=== PATIENT | male | born 1960 | race Caucasian/White ===

== ENCOUNTER 2020-09-16 09:36 | Outpatient (REF) | payer OTHER, SELFPAY ==
[2020-09-16 10:18] LABS: Estimated Average Glucose 140 mg/dL; Hemoglobin A1c % 6.5 %
[2020-09-16 10:23] LABS: Alanine Aminotransferase 27 U/L (0-40); Albumin Level 4.3 g/dL (3.5-5.0); Alkaline Phosphatase 68 U/L (39-117); Anion Gap 12 (12-20); Aspartate Amino Transferase 18 U/L (5-37); Bilirubin Total 0.3 mg/dL (0.0-1.0); Blood Urea Nitrogen 16 mg/dL (9-16); Calcium 8.6 mg/dL (8.4-10.2); Carbon Dioxide 26 mmol/L (22-29); Chloride 105 mmol/L (96-108); Cholesterol 180 mg/dL; Estimated Glomerular Filt Rate > 60; Glucose Fasting 160 mg/dL (60-99); HDL Cholesterol 43 mg/dL; LDL Cholesterol Calculated 121 mg/dl; Potassium 4.7 mmol/l (3.3-5.1); Sodium 138 mmol/L (135-145); Triglycerides 84 mg/dL
== END 2020-09-16 09:37 | disposition home or self-care (01) ==
LOC: HO.LAB 09:36
PROVIDERS: PCP Internal Medicine; Visit Provider Internal Medicine
DX: E11.9 Type 2 diabetes mellitus without complications (principal)
CPT/HCPCS: 80053; 80061; 83036

== ENCOUNTER → 2020-10-18 08:47 | Outpatient (BNVA) | payer OTHER, SELFPAY | PROVIDERS: PCP Internal Medicine; Visit Provider Internal Medicine | DX: I25.10 Atherosclerotic heart disease of native coronary artery without angina pectoris (principal); Q24.5 Malformation of coronary vessels; E11.8 Type 2 diabetes mellitus with unspecified complications; I10 Essential (primary) hypertension; E78.5 Hyperlipidemia, unspecified | CPT/HCPCS: 93005; 99212 ==

== ENCOUNTER → 2021-04-04 08:54 | Outpatient (BNVA) | payer OTHER, SELFPAY | PROVIDERS: PCP Internal Medicine; Referring Provider Internal Medicine; Visit Provider Internal Medicine | DX: I25.10 Atherosclerotic heart disease of native coronary artery without angina pectoris (principal); Q24.5 Malformation of coronary vessels; E11.8 Type 2 diabetes mellitus with unspecified complications; I10 Essential (primary) hypertension; E78.5 Hyperlipidemia, unspecified | CPT/HCPCS: 99212 ==

== ENCOUNTER 2021-05-21 07:25 | Outpatient (REF) | payer OTHER, SELFPAY ==
[2021-05-21 07:47] LABS: MANUAL DIFF FLAG NO
[2021-05-21 07:52] LABS: Basophils Percent Auto 0.7 % (0-2); Eosinophils Absolute Auto 0.2 X10*3/uL (0.0-0.4); Eosinophils Percent Auto 3.1 % (0-4); Hematocrit 43.9 % (42-52); Imm Gran Abs Auto 0.02 X10*3/uL (0.00-0.03); Imm Gran Pct Auto 0.4 % (0.0-0.4); Lymphocytes Absolute Auto 1.6 X10*3/uL (1.2-4.9); Lymphocytes Percent Auto 28.5 % (20-40); Mean Corpuscular HGB Conc 31.9 g/dl (31.0-36.0); Mean Corpuscular Hemoglobin 27.7 pg (27.0-33.0); Mean Corpuscular Volume 86.8 fL (80-98); Mean Platelet Volume 11.1 fL (9.4-12.4); Monocytes Absolute Auto 0.6 X10*3/uL (0.1-1.2); Monocytes Percent Auto 10.5 % (2-11); Neutrophils Absolute Auto 3.1 X10*3/uL (2.0-8.3); Neutrophils Percent Auto 56.8 % (45-73); Platelet Count 172 X10*3/uL (160-400); Red Blood Count 5.06 X10*6/uL (4.60-5.80); Red Cell Distribution Width 14.1 % (11.0-16.0); White Blood Count 5.5 X10*3/uL (4.8-10.8)
[2021-05-21 08:09] LABS: Alanine Aminotransferase 28 U/L (0-40); Albumin Level 4.4 g/dL (3.5-5.0); Alkaline Phosphatase 60 U/L (39-117); Anion Gap 12 (12-20); Aspartate Amino Transferase 20 U/L (5-37); Bilirubin Total 0.6 mg/dL (0.0-1.0); Blood Urea Nitrogen 15 mg/dL (9-16); Calcium 9.2 mg/dL (8.4-10.2); Carbon Dioxide 23 mmol/L (22-29); Chloride 107 mmol/L (96-108); Cholesterol 203 mg/dL; Estimated Glomerular Filt Rate > 60; Glucose Fasting 144 mg/dL (60-99); HDL Cholesterol 43 mg/dL; LDL Cholesterol Calculated 135 mg/dl; Potassium 4.2 mmol/L (3.3-5.1); Sodium 138 mmol/L (135-145); Total Protein 7.2 g/dL (6.5-8.0); Triglycerides 129 mg/dL
== END 2021-05-21 07:26 | disposition home or self-care (01) ==
LOC: HO.LAB 07:25
PROVIDERS: PCP Internal Medicine; Visit Provider Internal Medicine
DX: Z00.00 Encounter for general adult medical examination without abnormal findings (principal); E11.9 Type 2 diabetes mellitus without complications
CPT/HCPCS: 36415; 80053; 80061; 85025

== ENCOUNTER 2021-08-14 11:32 | Outpatient (REF) | payer OTHER, SELFPAY ==
[2021-08-14 12:32] LABS: Influenza A PCR NEGATIVE (Negative); Influenza B PCR NEGATIVE (Negative); Resp Syncy Virus RNA Qual PCR NEGATIVE (Negative); SARS COV2 PCR INHOUSE NEGATIVE (Negative)
== END 2021-08-14 11:33 | disposition home or self-care (01) ==
LOC: HO.LNP 11:32
PROVIDERS: Visit Provider Physician Assistant
DX: J02.9 Acute pharyngitis, unspecified (principal); B34.9 Viral infection, unspecified; Z20.822 Contact with and (suspected) exposure to COVID-19
CPT/HCPCS: 0241U

== ENCOUNTER 2021-08-22 07:17 | Outpatient (REF) | payer OTHER, SELFPAY ==
[2021-08-22 08:21] LABS: Cholesterol 228 mg/dL; HDL Cholesterol 42 mg/dL; LDL Cholesterol Calculated 155 mg/dl; Triglycerides 156 mg/dL
== END 2021-08-22 07:18 | disposition home or self-care (01) ==
LOC: HO.LAB 07:17
PROVIDERS: PCP Internal Medicine; Visit Provider Internal Medicine
DX: E11.9 Type 2 diabetes mellitus without complications (principal)
CPT/HCPCS: 36415; 80061

== ENCOUNTER 2021-09-03 07:21 | Outpatient (REF) | payer OTHER, SELFPAY ==
[2021-09-03 08:19] LABS: Alanine Aminotransferase 26 U/L (0-40); Albumin Level 4.2 g/dL (3.5-5.0); Alkaline Phosphatase 57 U/L (39-117); Anion Gap 12 (12-20); Aspartate Amino Transferase 17 U/L (5-37); Bilirubin Total 0.4 mg/dL (0.0-1.0); Blood Urea Nitrogen 14 mg/dL (9-16); Calcium 9.1 mg/dL (8.4-10.2); Carbon Dioxide 24 mmol/L (22-29); Chloride 107 mmol/L (96-108); Estimated Glomerular Filt Rate > 60; Glucose Fasting 149 mg/dL (60-99); Potassium 4.5 mmol/L (3.3-5.1); Sodium 138 mmol/L (135-145)
[2021-09-03 08:32] LABS: HIV AB/AG Nonreactive (Nonreactive); HIV Num 1 0.04 S/CO (0.00-0.99); ~HepC Num1 10.23 S/CO (0.00-0.79); ~Hepatitis C Antibody Reactive (Nonreactive)
[2021-09-03 09:27] LABS: Syphilis Screen Nonreactive (Nonreactive)
[2021-09-04 22:02] LABS: Herpes Simplex Type 2 IgG <0.90 index
[2021-09-06 21:02] LABS: HCV Log PCR <1.18 NOT DETECTED Log IU/mL (NOT DETECTED); HepC Viral Load <15 NOT DETECTED IU/mL (NOT DETECTED)
== END 2021-09-03 07:22 | disposition home or self-care (01) ==
LOC: HO.LAB 07:21
PROVIDERS: PCP Internal Medicine; Visit Provider Internal Medicine
DX: Z00.00 Encounter for general adult medical examination without abnormal findings (principal); Z20.2 Contact with and (suspected) exposure to infections with a predominantly sexual mode of transmission; B19.20 Unspecified viral hepatitis C without hepatic coma
CPT/HCPCS: 36415; 80053; 86695; 86696; 86780; 86803; 87389; 87522

== ENCOUNTER → 2021-10-10 09:05 | Outpatient (BNVA) | payer OTHER, SELFPAY | PROVIDERS: PCP Internal Medicine; Referring Provider Internal Medicine; Visit Provider Internal Medicine | DX: I25.10 Atherosclerotic heart disease of native coronary artery without angina pectoris (principal); I10 Essential (primary) hypertension; E78.5 Hyperlipidemia, unspecified; E11.8 Type 2 diabetes mellitus with unspecified complications; Q24.5 Malformation of coronary vessels | CPT/HCPCS: 93005; 99212 ==

== ENCOUNTER 2022-04-17 08:44 | Outpatient (REF) | payer OTHER, SELFPAY ==
[2022-04-17 09:08] LABS: MANUAL DIFF FLAG NO
[2022-04-17 09:50] LABS: Basophils Absolute Auto 0.1 X10*3/uL (0.0-0.2); Basophils Percent Auto 0.7 % (0-2); Eosinophils Absolute Auto 0.1 X10*3/uL (0.0-0.4); Hemoglobin 13.8 g/dl (14.0-18.0); Imm Gran Abs Auto 0.02 X10*3/uL (0.00-0.03); Imm Gran Pct Auto 0.3 % (0.0-0.4); Lymphocytes Absolute Auto 1.8 X10*3/uL (1.2-4.9); Lymphocytes Percent Auto 26.1 % (20-40); Mean Corpuscular HGB Conc 32.9 g/dl (31.0-36.0); Mean Corpuscular Hemoglobin 28.2 pg (27.0-33.0); Mean Corpuscular Volume 85.9 fL (80.0-98.0); Mean Platelet Volume 10.5 fL (9.4-12.4); Monocytes Absolute Auto 0.6 X10*3/uL (0.1-1.2); Monocytes Percent Auto 8.6 % (2-11); Neutrophils Absolute Auto 4.3 x10*3/uL (2.0-8.3); Neutrophils Percent Auto 62.3 % (45-73); Platelet Count 190 X10*3/uL (160-400); Red Blood Count 4.89 X10*6/uL (4.60-5.80); Red Cell Distribution Width 14.1 % (11.0-16.0); White Blood Count 6.9 X10*3/uL (4.8-10.8)
[2022-04-17 10:20] LABS: Alanine Aminotransferase 30 U/L (0-40); Albumin Level 4.6 g/dL (3.5-5.0); Alkaline Phosphatase 58 U/L (39-117); Anion Gap 12 (12-20); Aspartate Amino Transferase 21 U/L (5-37); Bilirubin Total 0.6 mg/dL (0.0-1.0); Blood Urea Nitrogen 17 mg/dL (9-16); Calcium 9.2 mg/dL (8.4-10.2); Carbon Dioxide 24 mmol/L (22-29); Chloride 106 mmol/L (96-108); Cholesterol 153 mg/dL; Estimated Glomerular Filt Rate > 60; Glucose Fasting 127 mg/dL (60-99); HDL Cholesterol 40 mg/dL; LDL Cholesterol Calculated 92 mg/dl; Potassium 4.4 mmol/L (3.3-5.1); Sodium 138 mmol/L (135-145); Total Protein 7.5 g/dL (6.5-8.0); Triglycerides 108 mg/dL
[2022-04-17 10:35] LABS: HBS Num1 86.23 mIU/mL (0-7.99); HIV AB/AG Nonreactive (Nonreactive); HIV Num 1 0.07 S/CO (0.00-0.99); ~Hepatitis B Surface Antibody REACTIVE (Nonreactive)
[2022-04-17 10:42] LABS: Prostate Specific Antigen Scr 0.93 ng/mL (<0.05-4.0); Thyroid Stimulating Hormone 1.25 uIU/mL (0.32-4.0)
[2022-04-17 12:19] LABS: Creatinine Urine 196.26 mg/dL; Microalbum/Creatinine Ratio Ur 5.6 ug/mg cr
[2022-04-19 05:26] LABS: Herpes Simplex Type 2 IgG <0.90 index
== END 2022-04-17 08:45 | disposition home or self-care (01) ==
LOC: HO.LAB 08:44
PROVIDERS: PCP Internal Medicine; Visit Provider Internal Medicine
DX: Z00.00 Encounter for general adult medical examination without abnormal findings (principal); E11.69 Type 2 diabetes mellitus with other specified complication; I10 Essential (primary) hypertension; E78.5 Hyperlipidemia, unspecified; E66.01 Morbid (severe) obesity due to excess calories; Z13.0 Encounter for screening for diseases of the blood and blood-forming organs and certain disorders involving the immune mechanism; E03.9 Hypothyroidism, unspecified; Z11.4 Encounter for screening for human immunodeficiency virus [HIV]; Z11.59 Encounter for screening for other viral diseases; Z12.5 Encounter for screening for malignant neoplasm of prostate
CPT/HCPCS: 36415; 80053; 80061; 82043; 84153; 84443; 85025; 86695; 86696; 86706; 87389

== ENCOUNTER → 2022-04-18 13:02 | Outpatient (BNVA) | payer OTHER, SELFPAY | PROVIDERS: PCP Internal Medicine; Visit Provider Internal Medicine | DX: I25.10 Atherosclerotic heart disease of native coronary artery without angina pectoris (principal); Q24.5 Malformation of coronary vessels; E11.8 Type 2 diabetes mellitus with unspecified complications; I10 Essential (primary) hypertension; E78.5 Hyperlipidemia, unspecified | CPT/HCPCS: 99212 ==

== ENCOUNTER → 2022-10-22 13:57 | Outpatient (BNVA) | payer OTHER, SELFPAY | PROVIDERS: PCP Internal Medicine; Referring Provider Internal Medicine; Visit Provider Internal Medicine | DX: I25.10 Atherosclerotic heart disease of native coronary artery without angina pectoris (principal); I10 Essential (primary) hypertension; Q24.5 Malformation of coronary vessels; E78.5 Hyperlipidemia, unspecified | CPT/HCPCS: 93005; 99212 ==

== ENCOUNTER 2023-04-01 08:59 | Outpatient (AMB) | payer OTHER, SELFPAY ==
--- NOTE | 2023-04-01 09:02 | A.OFFPC_ITS ---
Vital Signs 04/01/23 09:04 Height 5 ft 11 in Weight 192 lb BMI 26.8 BP 120/70 Blood Pressure Location Lt brachial Position Sitting Pulse 78 Pulse Source Pulse Oximeter Pulse Oximetry (%) 98 Oxygen Delivery Method Room Air Intake Visit Reasons: Annual Exam Intake Note: Patient is here today for a physical. 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 Accompanied by: Self / Same As Patient Allergies No Known Allergies [No Known Allergies*] Allergy (Verified 04/01/23 09:04) Medication List - Last Reconciled 04/01/23 by Indio Orr MD amlodipine-benazepril 10-20 mg 1 cap PO DAILY blood pressure monitor As directed finasteride 5 mg PO DAILY metformin 500 mg PO DAILY rosuvastatin 10 mg PO DAILY Tobacco use date assessed: 04/01/23 Dental Screening Dental Screen Date: 04/01/23 Did you have a dental visit in the last 12 months?: No Did you have a dental problem in the last 6 months where you did not have access to dental care?: No Was dental information given to patient?: No HPI Annual Exam HPI Details HTN DM Hyperlipidemia; feels well [facility] Medical History (Updated 03/29/22 @ 13:23 by Indio Orr MD) 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 Essential hypertension Other and unspecified hyperlipidemia Type 2 diabetes mellitus with unspecified complications Surgical History No pertinent past surgical history Family History Father Hypertension Mother Hypertension Diabetes Social History Housing: Apartment Alcohol intake: never Patient Tobacco Use Status: Former Tobacco user Quit Date: 12-15 years ago e-Cigarette/Vaping Use: Never Used Second Hand Smoke Exposure: No service: No Current occupational status: employed Cognitive needs: No Hearing needs: No Vision needs: Yes (glasses) Questionnaire PHQ-9 Over the last 2 weeks, how often have you been bothered by any of the following problems? 1. Little interest or pleasure in doing things: not at all 2. Feeling down, depressed, or hopeless: not at all 3. Trouble falling or staying asleep, or sleeping too much: not at all 4. Feeling tired or having little energy: not at all 5. Poor appetite or overeating: not at all 6. Feeling bad about yourself - or that you are a failure or have let yourself or your family down: not at all 7. Trouble concentrating on things, such as reading the newspaper or watching television: not at all 8. Moving or speaking so slowly that other people could have noticed. Or the opposite - being so fidgety or restless that you have been moving around a lot more than usual: not at all 9. Thoughts that you would be better off or of hurting yourself in some way: not at all Total score: 0 Depression Screening Interpretation: Negative 55929 - PHQ-9 Billing: Yes Source: Developed by Drs. Carlos Enrique Medina, Chasity Lepe, Mohan Mann and colleagues, with an educational tucker from [employer]. Thrive Questionnaire Date Thrive assessed: 04/01/23 I am a: Patient What is your living situation today?: I have a steady place to live Within the past 12 months, did the food you bought not last and you didn't have the money to get more?: Never true Within the past 12 months, did you worry whether your food would run out before you got money to buy more?: Never true Do you have trouble paying for medicines?: No Do you have trouble getting transportation to medical appointments?: No Do you have trouble paying your heating and electricity bill?: No Do you have trouble taking care of your child, family member or friend?: No Do you have trouble with day-to-day activities such as bathing, preparing meals, shopping, managing finances, etc.?: No Are you currently unemployed and looking for a job?: No Are you interested in more education?: No Currently or been in a relationship where the following occur: no concerns reported AUDIT C Alcohol Use Questionnaire (AUDIT-C) 1. How often do you have a drink containing alcohol?: Never Total Score: 0 JESUS-7 AMB Questionnaire JESUS-7 Date JESUS - 7 assessed: 04/01/23 Feeling nervous, anxious, or on edge: 0 = Not at all Not being able to stop or control worryin = Not at all Worrying too much about different things: 0 = Not at all Trouble relaxin = Not at all Being so restless that it is hard to sit still: 0 = Not at all Becoming easily annoyed or irritable: 0 = Not at all Feeling afraid as if something awful might happen: 0 = Not at all Total JESUS-7 score (0-4 normal; 5-9 mild; 10-14 moderate; 15-21 severe): 0 Source: Developed by Drs. Carlos Enrique Medina, Chasity Lepe, Mohan Mann and colleagues, with an educational tucker from [employer]. JESUS-7 Assessment Billing JESUS-7 Assessment Tool: JESUS-7 Assessment 25144 Review of Systems Const Denies chills, Denies fatigue, Denies headache(s) and Denies weight loss Eyes Denies change in vision, Denies diplopia and Denies eye pain ENT Denies vertigo, Denies dizziness, Denies headache(s) and Denies nasal discharge Card Denies chest pain, Denies rapid heart rate and Denies dyspnea on exertion Resp Denies chest congestion, Denies cough, Denies pain with cough and Denies dyspnea on exertion GI Denies abdominal pain, Denies hematochezia and Denies change in bowel habits Musc Denies myalgias, Denies arthralgias and Denies joint swelling Skin/Breast Denies lesions and Denies unusual bruising Neuro Denies vertigo, Denies dizziness, Denies headache(s) and Denies focal weakness Endo Denies fatigue Physical exam (Primary Care) Vital Signs: Last Vital Signs Pulse 78 04/01/23 09:04 BP 120/70 04/01/23 09:04 Pulse Ox 98 04/01/23 09:04 Oxygen Delivery Method Room Air 04/01/23 09:04 BMI result Body Mass Index 26.8 Tobacco/Smoking Status: Tobacco use Status Tobacco use date assessed 04/01/23 04/01/23 09:10 Patient Tobacco Use Status Former Tobacco user 04/01/23 09:10 Tobacco use type 10/22/22 15:17 e-Cigarette/Vaping Use Never Used 04/01/23 09:10 PHQ-9: PHQ-9 Score PHQ-9: Total score 0 04/01/23 09:16 Depression Screening Interpretation: Negative Thrive Assessment: Date of Thrive Assessment Date Thrive assessed 04/01/23 04/01/23 09:10 Currently or been in a relationship where the following occur: no concerns reported Advance Care Planning discussion: On file, no changes Forms completed: Health Care Proxy Const General: cooperative, healthy appearing and no acute distress Orientation/consciousness: oriented to person, oriented to place and oriented to time HENMT Head: Yes normal to inspection, Yes normocephalic and Yes atraumatic Mouth: Normal oral and palatal mucosa present and tongue normal Throat: Yes posterior oropharynx normal and Yes uvula midline Eyes General: appearance normal, both eyes and all related structures Neck Neck: Yes normal visual inspection, Yes full ROM and Yes no lymphadenopathy Thyroid: Thyroid normal Carotids: normal carotid upstroke Chest Chest palpation & inspection: normal inspection of the chest Resp Effort & Inspection: normal respiratory effort and able to speak in complete sentences Auscultation: clear to auscultation bilaterally Cardio Jugular venous distension: no JVD Palpation: normal PMI Rate: regular rate Rhythm: regular rhythm Heart sounds: S1 normal heart sound present and S2 normal heart sound present GI Inspection: Yes normal to inspection Palpation (GI): Soft to palpation and No hepatosplenomegaly present Auscultation: normal bowel sounds General: Yes no CVA tenderness Back/Spine/Pelvis Back: no CVA tenderness Skin General skin exam: no rashes or lesions noted Neuro General: oriented to person, oriented to place and oriented to time Extrem General: Yes normal to inspection and Yes full ROM Results AMB Hemoglobin A1c AMB Hemoglobin A1c 5.9 % Last Edit by STEVE Biggs on 04/01/23 09:16 Results Reviewed Results Reviewed: Laboratory Last Values Hgb A1c (Clinic) 5.9 % (4.0-6.0) 04/01/23 09:02 Assessment and Plan Assessment & Plan (1) Physical exam: Code(s): Z00.00 - Encounter for general adult medical examination without abnormal findi ngs Plan: stable; do labs (2) Hyperlipidemia: Code(s): E78.5 - Hyperlipidemia, unspecified Plan: stable; same meds (3) Diabetes mellitus with coincident hypertension: Code(s): E11.9 - Type 2 diabetes mellitus without complications; I10 - Essential (primary) hypertension Plan: stable; same meds (4) Essential hypertension: Code(s): I10 - Essential (primary) hypertension Plan: stable Orders: Orders AMB Hemoglobin A1c Today E11.8 - Type 2 diabetes mellitus with unspecified complications, E11.9 - Type 2 diabetes mellitus without complications, I10 - Essential (primary) hypertension Comprehensive [place]. Panel Fast Today N28.9 - Disorder of kidney and ureter, unspecified Hemoglobin A1c Today R73.9 - Hyperglycemia, unspecified Lipid Panel Today E78.5 - Hyperlipidemia, unspecified Prostate Specific Antigen Scr Today Z00.00 - Encounter for general adult medical examination without abnormal findings Thyroid Stimulating Hormone Today E03.9 - Hypothyroidism, unspecified Microalbumin, Random (w Creat) Today E11.69 - Type 2 diabetes mellitus with other specified complication, E66.01 - Morbid (severe) obesity due to excess calories Complete Blood Count Auto Diff Today D64.9 - Anemia, unspecified Hepatitis C Viral Load Today B19.20 - Unspecified viral hepatitis C without hepatic coma Herpes Simplex Virus Ab IgG Today Z20.2 - Contact with and (suspected) exposure to infections with a predominantly sexual mode of transmission HIV Ab/Ag Today Z20.2 - Contact with and (suspected) exposure to infections with a predominantly sexual mode of transmission Syphilis Screen Today Z20.2 - Contact with and (suspected) exposure to infections with a predominantly sexual mode of transmission Coding Level of Care Code Est Pt Prev Care 40-64y(20693) Diagnoses Physical exam Z00.00 Hyperlipidemia E78.5 Diabetes mellitus with coincident hypertension E11.9; I10 Essential hypertension I10 Additional Codes JESUS-7 Assessment Billing - JESUS-7 Assessment Tool: JESUS-7 Assessment 98182 ([id number]) Vital Signs *Quality* - Advance Care Planning discussion: On file, no changes ([id number])
[2023-04-01 09:04] VITALS: BP 120/70; PULSE 78; O2SAT 98; BMI 26.8
== END 2023-04-01 09:38 | disposition home or self-care (01) ==
PROVIDERS: PCP Internal Medicine; Visit Provider Internal Medicine
DX: Z00.00 Encounter for general adult medical examination without abnormal findings (principal); E78.5 Hyperlipidemia, unspecified; E11.9 Type 2 diabetes mellitus without complications; I10 Essential (primary) hypertension; E11.8 Type 2 diabetes mellitus with unspecified complications; Z71.89 Other specified counseling
CPT/HCPCS: 1123F; 83036; 99396

== ENCOUNTER → 2023-07-16 08:53 | Outpatient (REF) | payer OTHER, SELFPAY | LOC: HO.SL 08:53 | PROVIDERS: PCP Internal Medicine; Visit Provider Internal Medicine | DX: R35.1 Nocturia (principal) | CPT/HCPCS: 95806 ==

== ENCOUNTER → 2023-07-16 09:29 | Outpatient (BNV) | payer OTHER, SELFPAY | PROVIDERS: PCP Internal Medicine; Visit Provider Internal Medicine | DX: G47.33 Obstructive sleep apnea (adult) (pediatric) (principal) | CPT/HCPCS: 95806 ==

== ENCOUNTER 2023-08-05 07:06 | Outpatient (REF) | payer OTHER, SELFPAY ==
[2023-08-05 07:23] LABS: MANUAL DIFF FLAG NO
[2023-08-05 07:45] LABS: Basophils Percent Auto 0.5 % (0-2); Eosinophils Absolute Auto 0.2 X10*3/uL (0.0-0.4); Eosinophils Percent Auto 2.9 % (0-4); Hematocrit 43.7 % (42.0-52.0); Hemoglobin 14.3 g/dl (14.0-18.0); Imm Gran Abs Auto 0.02 X10*3/uL (0.00-0.03); Imm Gran Pct Auto 0.3 % (0.0-0.4); Lymphocytes Absolute Auto 1.5 X10*3/uL (1.2-4.9); Lymphocytes Percent Auto 26.2 % (20-40); Mean Corpuscular HGB Conc 32.7 g/dl (31.0-36.0); Mean Corpuscular Hemoglobin 27.5 pg (27.0-33.0); Mean Platelet Volume 10.5 fL (9.4-12.4); Monocytes Absolute Auto 0.5 X10*3/uL (0.1-1.2); Monocytes Percent Auto 8.9 % (2-11); Neutrophils Absolute Auto 3.6 x10*3/uL (2.0-8.3); Neutrophils Percent Auto 61.2 % (45-73); Platelet Count 195 X10*3/uL (160-400); Red Cell Distribution Width 14.7 % (11.0-16.0); White Blood Count 5.9 X10*3/uL (4.8-10.8)
[2023-08-05 07:56] LABS: Estimated Average Glucose 131 mg/dL; Hemoglobin A1c % 6.2 % (<6.0)
[2023-08-05 08:08] LABS: Creatinine Urine 151.73 mg/dL; Microalbum/Creatinine Ratio Ur 3.9 ug/mg cr (<30)
[2023-08-05 08:18] LABS: Alanine Aminotransferase 38 U/L (0-40); Albumin Level 4.4 g/dL (3.5-5.0); Alkaline Phosphatase 54 U/L (39-117); Anion Gap 15 (12-20); Aspartate Amino Transferase 28 U/L (5-37); Bilirubin Total 0.4 mg/dL (0.0-1.0); Blood Urea Nitrogen 14 mg/dL (9-16); Calcium 9.6 mg/dL (8.4-10.2); Carbon Dioxide 24 mmol/L (22-29); Chloride 106 mmol/L (96-108); Cholesterol 221 mg/dL (<200); Estimated Glomerular Filt Rate > 60; Glucose Fasting 148 mg/dL (60-99); HDL Cholesterol 45 mg/dL (>40); LDL Cholesterol Calculated 151 mg/dL (<100); Potassium 4.2 mmol/L (3.3-5.1); Sodium 141 mmol/L (135-145); Total Protein 7.4 g/dL (6.5-8.0); Triglycerides 127 mg/dL (<150)
[2023-08-05 08:26] LABS: Prostate Specific Antigen Scr 2.29 ng/mL (<0.05-4.0)
[2023-08-05 08:27] LABS: HIV AB/AG Nonreactive (Nonreactive); HIV Num 1 0.05 S/CO (0.00-0.99); Syphilis Screen Nonreactive (Nonreactive)
[2023-08-05 08:28] LABS: Thyroid Stimulating Hormone 1.61 uIU/mL (0.32-4.0)
[2023-08-06 18:04] LABS: HCV Log PCR <1.18 NOT DETECTED Log IU/mL (NOT DETECTED); HepC Viral Load <15 NOT DETECTED IU/mL (NOT DETECTED)
[2023-08-07 05:37] LABS: Herpes Simplex Type 2 IgG <0.90 index
== END 2023-08-05 07:07 | disposition home or self-care (01) ==
LOC: HO.LAB 07:06
PROVIDERS: PCP Internal Medicine; Visit Provider Internal Medicine
DX: Z00.00 Encounter for general adult medical examination without abnormal findings (principal); Z12.5 Encounter for screening for malignant neoplasm of prostate; Z11.4 Encounter for screening for human immunodeficiency virus [HIV]; N28.9 Disorder of kidney and ureter, unspecified; Z20.2 Contact with and (suspected) exposure to infections with a predominantly sexual mode of transmission; E78.5 Hyperlipidemia, unspecified; B19.20 Unspecified viral hepatitis C without hepatic coma; E03.9 Hypothyroidism, unspecified; D64.9 Anemia, unspecified; E66.01 Morbid (severe) obesity due to excess calories; E11.65 Type 2 diabetes mellitus with hyperglycemia
CPT/HCPCS: 36415; 80053; 80061; 82043; 82570; 83036; 84153; 84443; 85025; 86695; 86696; 86780; 87389; 87522

== ENCOUNTER 2023-09-23 09:09 | Outpatient (AMB) | payer OTHER, SELFPAY ==
--- NOTE | 2023-09-23 09:11 | A.OFFVIS_ITS ---
Intake Vital Signs 09/23/23 09:12 Height 5 ft 11 in Weight 192 lb 3.889 oz BMI 26.8 BP 130/72 Blood Pressure Location Lt brachial Position Sitting Pulse 74 Intake Visit Reasons: 1 yr follow-up/Confirmed Intake Note: 1 year follow up w/ EKG [employer] Worker Required: No Accompanied by: Self / Same As Patient Allergies No Known Allergies [No Known Allergies*] Allergy (Verified 09/23/23 09:14) Medication List - Last Reconciled 09/23/23 by Nestor Pacheco MD amlodipine-benazepril 10-20 mg 1 cap PO DAILY blood pressure monitor As directed metformin 500 mg PO DAILY rosuvastatin 10 mg PO DAILY HPI HPI Comments History of Present Illness Details Carlos Enrique returns for follow-up. 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 Has diabetes, hypertension., dyslipidemia. Still continues to be noncompliant. Does not take medications regularly. Has not been taking statins. Otherwise, no concerns from cardiac and he does not really have any specific symptoms. He states he still works. [facility] Medical History (Updated 03/29/22 @ 13:23 by Indio Orr MD) Other and unspecified hyperlipidemia Essential hypertension Type 2 diabetes mellitus with unspecified complications 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 Surgical History No pertinent past surgical history Family History Father Hypertension Mother Hypertension Diabetes Social History Housing: Apartment Alcohol intake: never Patient Tobacco Use Status: Former Tobacco user Quit Date: 12-15 years ago e-Cigarette/Vaping Use: Never Used Second Hand Smoke Exposure: No service: No Current occupational status: employed Cognitive needs: No Hearing needs: No Vision needs: Yes (glasses) Review of Systems Const Denies weakness ENT Denies dizziness Card Denies chest pain, Denies chest pain with activity, Denies syncope, Denies rapid heart rate, Denies pedal edema, Denies edema, Denies leg edema, Denies lightheadedness, Denies palpitations, Denies dyspnea, Denies dyspnea on exertion and Denies orthopnea Resp Denies cough, Denies dyspnea and Denies dyspnea on exertion GI Denies hematochezia and Denies change in stool character Musc Denies abnormal gait, Denies muscle cramps, Denies muscle weakness, Denies numbness, Denies radiating pain into limb and Denies tingling Neuro Denies abnormal gait, Denies dizziness, Denies syncope, Denies numbness, Denies tingling and Denies weakness Endo Denies palpitations Physical Exam Vital Signs: Last Vital Signs Pulse 74 09/23/23 09:12 BP 130/72 09/23/23 09:12 BMI result Body Mass Index 26.8 Const General: comfortable and no acute distress Orientation/consciousness: patient oriented x3 HEENT Other: Unremarkable Head: Yes normal to inspection Neck Neck: Yes normal visual inspection Chest Chest palpation & inspection: normal inspection of the chest Resp Auscultation: clear to auscultation bilaterally Cardio Palpation: normal PMI Heart sounds: S1 normal heart sound present, S2 normal heart sound present, no gallops, no murmurs and no rubs GI Palpation (GI): Soft to palpation Back/Spine/Pelvis Other: unremarkable Skin General skin exam: no rashes or lesions noted Neuro General: patient oriented x3 Extrem General: Yes normal to inspection Psych Mental Status: mental status grossly normal Office Procedures EKG Details: EKG with sinus rhythm at 74/Min; old septal infarct; no significant ST-T changes; PACs. This was not seen in the last 2 EKGs but EKG from 2020 looks quite similar. [id number], Complete Assessment & Plan Assessment & Plan (1) Atherosclerotic cardiovascular disease: Code(s): I25.10 - Atherosclerotic heart disease of [place] coronary artery without angina pectoris (2) Anomalous origin of coronary artery: Code(s): Q24.5 - Malformation of coronary vessels (3) Essential hypertension: Code(s): I10 - Essential (primary) hypertension (4) Other and unspecified hyperlipidemia: Code(s): E78.5 - Hyperlipidemia, unspecified Plan Cardiac studies reviewed. 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 No high-grade stenosis in the proximal or mid circumflex, but distal portion was small and hence not seen well. Otherwise, there was 50% narrowing after the takeoff of the acute marginal branch. No significant stenosis elsewhere. Echocardiogram from 2019 with normal LVEF, 55-60%, normal diastolic filling, no significant valvular pathology and normal pulmonary pressures. No specific management for the anomalous coronary artery. He does not have any clinical symptoms from that. Blood pressure is stable on the current medications of amlodipine/benazepril. No changes. With regard to lipids, the higher side but he does not take his statins either. Again encouraged compliance and take them regularly. Total time spent including review of data, counseling, documentation, coordination of care-32 minutes. Coding Level of Care Code Est Pt Level 4 (46401) Diagnoses Atherosclerotic cardiovascular disease I25.10 Anomalous origin of coronary artery Q24.5 Essential hypertension I10 Other and unspecified hyperlipidemia E78.5 CPT Codes EKG - CPT: 83571-[id number], Complete ([id number])
[2023-09-23 09:12] VITALS: BP 130/72; PULSE 74; BMI 26.8
== END 2023-09-23 09:28 | disposition home or self-care (01) ==
PROVIDERS: Visit Provider Internal Medicine
DX: I25.10 Atherosclerotic heart disease of native coronary artery without angina pectoris (principal); Q24.5 Malformation of coronary vessels; I10 Essential (primary) hypertension; E78.5 Hyperlipidemia, unspecified
CPT/HCPCS: 93010; 99214

== ENCOUNTER → 2023-09-23 09:09 | Outpatient (BNVA) | payer OTHER, SELFPAY | PROVIDERS: Visit Provider Internal Medicine | DX: I25.10 Atherosclerotic heart disease of native coronary artery without angina pectoris (principal); I10 Essential (primary) hypertension; E78.5 Hyperlipidemia, unspecified; Q24.5 Malformation of coronary vessels; Z79.899 Other long term (current) drug therapy | CPT/HCPCS: 93005; 99212 ==

== ENCOUNTER 2024-03-17 10:31 | Outpatient (REF) | payer OTHER, SELFPAY ==
--- NOTE | ~2024-03-17 | XR_ITS ---
EXAMINATION: XR HAND, LEFT CLINICAL INFORMATION: Pain in left hand. COMPARISON: None available. TECHNIQUE: PA, lateral, and oblique views of the left hand. FINDINGS: Diffuse demineralization. Moderate degenerative changes in the first carpometacarpal joint with joint space narrowing and hypertrophic change. Mild degenerative changes in multiple IP joints. There are ossific/calcific densities along the radial aspect of the third digit metacarpophalangeal joint with subjacent corticated subcortical lucency, possibly a concavity, along the radial base of the third digit proximal phalanx, possibly representing a chronic/degenerative process versus sequela of prior trauma. XR/XR hand LT min 3V IMPRESSION: Ossific/calcific densities along the radial aspect of the third digit metacarpophalangeal joint with subjacent corticated subcortical lucency, possibly a concavity, along the radial base of the third digit proximal phalanx, possibly representing a chronic/degenerative process versus sequela of prior trauma. This study was presented to me April 12, 2024 for interpretation. PSA staff will provide results to referring provider at this time.
== END 2024-03-17 10:32 | disposition home or self-care (01) ==
LOC: HO.HOSX 10:31
PROVIDERS: Visit Provider Orthopaedic Surgery
DX: M79.642 Pain in left hand (principal)
CPT/HCPCS: 73130; 97140; 99202

== ENCOUNTER 2024-03-17 13:55 | Outpatient (AMB) | payer OTHER, SELFPAY ==
--- NOTE | 2024-03-17 14:29 | MHC.OFFVIS ---
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 DOI 10/28/23 W/C related. 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 He was placed in a cast at [facility] and it was removed on 12/01/23. HE expresses he does at home exercises. In the morning time he wakes up with his hand stiff. Once in a while he states he has occasional pain when lifting objects. He has completed OT and states he feels no improvement. He is unable to make a full fist even after completing OT and would like a second opinion on why there is no improvement. Hx of DM Type 2. 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 He was seen at [facility] and treated with a cast for the next 4 weeks, which was removed on 12/01/23. He completed a course of OT hand therapy. He presents today with complaints of stiffness & weakness in his hand. He says his stiffness is worst in the mornings. He is unable to make a fist and he says he has occasional pain when lifting. He wants a second opinion to discuss why he has not improved. According to the scanned Workers Comp letter from [employer] on 01/21/24 Quick dash improved to 56.82 from 63.64. 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 Supination increased from 50 to 60, extension increased from 30 to 60. [facility] Medical History Other and unspecified hyperlipidemia Essential hypertension Type 2 diabetes mellitus with unspecified complications 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 Surgical History No pertinent past surgical history Family History Father Hypertension Mother Hypertension Diabetes Social History Housing: Apartment Alcohol intake: never Patient Tobacco Use Status: Former Tobacco user e-Cigarette/Vaping Use: Never Used Second Hand Smoke Exposure: No service: No Current occupational status: employed Cognitive needs: No Hearing needs: No Vision needs: Yes (glasses) Review of Systems Const All systems reviewed & are unremarkable except as noted in HPI and below Physical Exam Vital Signs: BMI result Body Mass Index 26.5 Const General: cooperative, healthy appearing and no acute distress Orientation/consciousness: patient oriented x3 HEENT Head: Yes normocephalic and Yes atraumatic Eyes EOM: EOMs intact bilaterally Resp Effort & Inspection: normal respiratory effort and able to speak in complete sentences Cardio Jugular venous distension: no JVD Skin General skin exam: turgor normal Rashes: no rashes Neuro General: patient oriented x3 Extrem Other: Evaluation of Left Upper Extremity: The patient is alert, oriented, and in no acute distress Neuro: Median, Ulnar, Radial nerves motor and sensory grossly intact Vascular: Cap refill brisk ROM: Initially he could barely flex his fingers towards a fist. Fingertips were at least 7-8 cm from his palm. We worked on ROM exercises for 30+ minutes today in clinic Before leaving clinic he could passively bring his middle, ring, and small fingertips down to his palm, and actively down to ~1cm from his palm His index finger could actively be brought to ~2-3cm from his palm No mal-rotation at the fracture site No tenderness at the fracture site Skin: No lacerations or abrasions. General: No Ecchymosis. No Erythema or evidence of infection. Radiographs: 3 views of the left hand were taken and viewed by me today in clinic. They show a healed 4th metacarpal shaft fracture with some shortening but satisfactory fracture alignment. The 4th metacarpal head is seen a tad longer than his 5th metacarpal head. Psych Appearance: grossly normal Affect: normal affect Attitude: cooperative Office Procedures Fracture Care Details: No fracture, manual therapy for 30 minutes plus [id number] x 2 ? Fracture Billing Code: Fracture Billing Code Assessment & Plan Assessment & Plan (1) Stiffness of left hand joint: Code(s): M25.642 - Stiffness of left hand, not elsewhere classified Category: Medical Plan Assessment & Plan: 1. Left hand stiffness, S/P 4th metacarpal shaft fracture, DOI: 10/28/23 This is a workers comp injury I educated him about this condition I discussed treatment options, and explained that there is no operative treatment for this We worked for at least 30 minutes today in clinic on passive and active range of motion exercises and got some significant improvement. He understands that it is up to him and he really needs to do the work on these range of motion exercises at least 20 times a day. He understands that while there is some discomfort in doing so, this will get better every day if he stays with it. I ordered OT hand therapy to work on ROM, stretching, and normalizing hand function. He works as a landscape painter and is currently unable to make a closed fist He will follow up in 6-8 weeks for a ROM check. He may cancel this if he is doing better Please note that greater than 30 minutes was spent with this patient going over the history, evaluating the patient and radiographs, formulating possible treatment options, educating the patient, and documenting the visit. Scribed for Jenna Rene MD by Brian Brown, medical bill processor, on 03/17/24 at 2:50 PM, EST. Orders: Orders XR hand LT min 3V Today M79.642 - Pain in left hand OT Evaluation and Treatment Today M25.642 - Stiffness of left hand, not elsewhere classified Coding Level of Care Code New Pt Level 3 (44064) Diagnoses Stiffness of left hand joint M25.642 CPT Codes Fracture Care - Fracture Billing Code: Fracture Billing Code ([id number])
[2024-03-17 14:31] VITALS: BMI 26.5
== END 2024-03-17 15:10 | disposition home or self-care (01) ==
PROVIDERS: PCP Internal Medicine; Visit Provider Orthopaedic Surgery
DX: M25.642 Stiffness of left hand, not elsewhere classified (principal)
CPT/HCPCS: 97140; 99203

== ENCOUNTER 2024-03-27 08:50 | Outpatient (REF) | payer OTHER, SELFPAY ==
[2024-03-27 09:11] LABS: MANUAL DIFF FLAG NO
[2024-03-27 09:43] LABS: Basophils Absolute Auto 0.1 X10*3/uL (0.0-0.2); Basophils Percent Auto 0.9 % (0-2); Eosinophils Absolute Auto 0.2 X10*3/uL (0.0-0.4); Eosinophils Percent Auto 2.6 % (0-4); Hematocrit 43.4 % (42.0-52.0); Imm Gran Abs Auto 0.02 X10*3/uL (0.00-0.03); Imm Gran Pct Auto 0.3 % (0.0-0.4); Lymphocytes Percent Auto 27.7 % (20-40); Mean Corpuscular HGB Conc 34.6 g/dl (31.0-36.0); Mean Corpuscular Hemoglobin 28.8 pg (27.0-33.0); Mean Corpuscular Volume 83.5 fL (80.0-98.0); Monocytes Absolute Auto 0.6 X10*3/uL (0.1-1.2); Monocytes Percent Auto 8.1 % (2-11); Neutrophils Absolute Auto 4.3 x10*3/uL (2.0-8.3); Neutrophils Percent Auto 60.4 % (45-73); Platelet Count 282 X10*3/uL (160-400); Red Cell Distribution Width 13.3 % (11.0-16.0); White Blood Count 7.1 X10*3/uL (4.8-10.8)
[2024-03-27 10:01] LABS: Alanine Aminotransferase 33 U/L (0-40); Albumin Level 4.7 g/dL (3.5-5.0); Alkaline Phosphatase 64 U/L (39-117); Anion Gap 14 (12-20); Aspartate Amino Transferase 23 U/L (5-37); Bilirubin Total 0.4 mg/dL (0.0-1.0); Blood Urea Nitrogen 20 mg/dL (9-16); Calcium 9.9 mg/dL (8.4-10.2); Carbon Dioxide 22 mmol/L (22-29); Chloride 104 mmol/L (96-108); Cholesterol 176 mg/dL (<200); Estimated Glomerular Filt Rate > 60; Glucose Fasting 152 mg/dL (60-99); HDL Cholesterol 37 mg/dL (>40); LDL Cholesterol Calculated 101 mg/dL (<100); Potassium 4.3 mmol/L (3.3-5.1); Sodium 136 mmol/L (135-145); Total Protein 7.9 g/dL (6.5-8.0); Triglycerides 190 mg/dL (<150)
== END 2024-03-27 08:51 | disposition home or self-care (01) ==
LOC: HO.LAB 08:50
PROVIDERS: PCP Internal Medicine; Visit Provider Internal Medicine
DX: Z13.0 Encounter for screening for diseases of the blood and blood-forming organs and certain disorders involving the immune mechanism (principal); Z13.9 Encounter for screening, unspecified; Z13.220 Encounter for screening for lipoid disorders
CPT/HCPCS: 36415; 80053; 80061; 85025

== ENCOUNTER 2024-04-02 08:57 | Outpatient (AMB) | payer OTHER, SELFPAY ==
--- NOTE | 2024-04-02 09:06 | MHC.PC.OV ---
Vital Signs 04/02/24 09:08 Height 5 ft 11 in Weight 193 lb BMI 26.9 BP 150/64 H Blood Pressure Location Lt brachial Position Sitting Pulse 96 Pulse Source Pulse Oximeter Pulse Oximetry (%) 97 Oxygen Delivery Method Room Air Intake Visit Reasons: pre op 04/13 Intake Note: Patient is here today for a physical. Financial Systems Analyst Required: No Post Partum Nurse: Not Required per policy Accompanied by: Self / Same As Patient Allergies No Known Allergies [No Known Allergies*] Allergy (Verified 04/02/24 09:08) Medication List - Last Reconciled 04/02/24 by Indio Orr MD amlodipine-benazepril 10-20 mg 1 cap PO DAILY blood pressure monitor As directed metformin 500 mg PO DAILY rosuvastatin 10 mg PO DAILY Tobacco use date assessed: 04/02/24 Fall risk assessment: 1 Fall in past year Last assessed Fall Risk: 04/02/24 Dental Screening Dental Screen Date: 04/02/24 Did you have a dental visit in the last 12 months?: No Did you have a dental problem in the last 6 months where you did not have access to dental care?: No Was dental information given to patient?: No (Dentures) HPI HPI Comments History of Present Illness Details Having cataracts repaired; has DM HYT and hyperlipidemia; in control and doing well; no history of CAD PFSH Medical History (Updated 04/05/24 @ 12:40 by Indio Orr MD) Other and unspecified hyperlipidemia Essential hypertension Type 2 diabetes mellitus with unspecified complications 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 Surgical History (Updated 04/02/24 @ 09:12 by STEVE Biggs) History of dental surgery Family History Father Hypertension Mother Hypertension Diabetes Social History Housing: Apartment Alcohol intake: never Patient Tobacco Use Status: Former Tobacco user e-Cigarette/Vaping Use: Never Used Second Hand Smoke Exposure: No service: No Current occupational status: employed Cognitive needs: No Hearing needs: No Vision needs: Yes (glasses) Questionnaire PHQ-9 Over the last 2 weeks, how often have you been bothered by any of the following problems? 1. Little interest or pleasure in doing things: more than half the days 2. Feeling down, depressed, or hopeless: nearly every day 3. Trouble falling or staying asleep, or sleeping too much: nearly every day 4. Feeling tired or having little energy: more than half the days 5. Poor appetite or overeating: not at all 6. Feeling bad about yourself - or that you are a failure or have let yourself or your family down: several days 7. Trouble concentrating on things, such as reading the newspaper or watching television: not at all 8. Moving or speaking so slowly that other people could have noticed. Or the opposite - being so fidgety or restless that you have been moving around a lot more than usual: not at all 9. Thoughts that you would be better off or of hurting yourself in some way: not at all Total score: 11 Depression Screening Interpretation: Positive Depression Screening Done: Yes Source: Developed by Drs. Carlos Enrique Medina, Chasity Lepe, Mohan Mann and colleagues, with an educational tucker from [email or web address]. Thrive Questionnaire Date Thrive assessed: 04/02/24 I am a: Patient What is your living situation today?: I have a steady place to live Within the past 12 months, did the food you bought not last and you didn't have the money to get more?: Never true Within the past 12 months, did you worry whether your food would run out before you got money to buy more?: Never true Do you have trouble paying for medicines?: No Do you have trouble getting transportation to medical appointments?: No Do you have trouble paying your heating and electricity bill?: No Do you have trouble taking care of your child, family member or friend?: No Do you have trouble with day-to-day activities such as bathing, preparing meals, shopping, managing finances, etc.?: No Are you currently unemployed and looking for a job?: No Are you interested in more education?: No Currently or been in a relationship where the following occur: No concerns reported THRIVE Score: 0 AUDIT C Alcohol Use Questionnaire (AUDIT-C) 1. How often do you have a drink containing alcohol?: Never Total Score: 0 JESUS-7 AMB Questionnaire JESUS-7 Date JESUS - 7 assessed: 04/02/24 Feeling nervous, anxious, or on edge: 0 = Not at all Not being able to stop or control worryin = Not at all Worrying too much about different things: 0 = Not at all Trouble relaxin = Not at all Being so restless that it is hard to sit still: 0 = Not at all Becoming easily annoyed or irritable: 0 = Not at all Feeling afraid as if something awful might happen: 0 = Not at all Total JESUS-7 score (0-4 normal; 5-9 mild; 10-14 moderate; 15-21 severe): 0 Source: Developed by Drs. Carlos Enrique Medina, Chasity Lepe, Mohan Mann and colleagues, with an educational tucker from [email or web address]. Review of Systems Const Denies chills, Denies fatigue, Denies headache(s) and Denies weight loss Eyes Denies change in vision, Denies diplopia and Denies eye pain ENT Denies vertigo, Denies dizziness, Denies headache(s) and Denies nasal discharge Card Denies chest pain, Denies rapid heart rate and Denies dyspnea on exertion Resp Denies chest congestion, Denies cough, Denies pain with cough and Denies dyspnea on exertion GI Denies abdominal pain, Denies hematochezia and Denies change in bowel habits Musc Denies myalgias, Denies arthralgias and Denies joint swelling Skin/Breast Denies lesions and Denies unusual bruising Neuro Denies vertigo, Denies dizziness, Denies headache(s) and Denies focal weakness Endo Denies fatigue Physical exam (Primary Care) Vital Signs: Last Vital Signs Pulse 96 04/02/24 09:08 BP 150/64 H 04/02/24 09:08 Pulse Ox 97 04/02/24 09:08 Oxygen Delivery Method Room Air 04/02/24 09:08 BMI result Body Mass Index 26.9 Tobacco/Smoking Status: Tobacco use Status Tobacco use date assessed 04/02/24 04/02/24 09:14 Patient Tobacco Use Status Former Tobacco user 04/02/24 09:14 Tobacco use type 10/22/22 15:17 e-Cigarette/Vaping Use Never Used 04/02/24 09:14 PHQ-9: PHQ-9 Score PHQ-9: Total score 11 04/02/24 09:14 Depression Screening Interpretation: Positive Thrive Assessment: Date of Thrive Assessment Date Thrive assessed 04/02/24 04/02/24 09:14 Currently or been in a relationship where the following occur: No concerns reported Const General: cooperative, healthy appearing and no acute distress Orientation/consciousness: oriented to person, oriented to place and oriented to time HENMT Head: Yes normal to inspection, Yes normocephalic and Yes atraumatic Mouth: Normal oral and palatal mucosa present and tongue normal Throat: Yes posterior oropharynx normal and Yes uvula midline Eyes General: appearance normal, both eyes and all related structures Neck Neck: Yes normal visual inspection, Yes full ROM and Yes no lymphadenopathy Thyroid: Thyroid normal Carotids: normal carotid upstroke Chest Chest palpation & inspection: normal inspection of the chest Resp Effort & Inspection: normal respiratory effort and able to speak in complete sentences Auscultation: clear to auscultation bilaterally Cardio Jugular venous distension: no JVD Palpation: normal PMI Rate: regular rate Rhythm: regular rhythm Heart sounds: S1 normal heart sound present and S2 normal heart sound present GI Inspection: Yes normal to inspection Palpation (GI): Soft to palpation and No hepatosplenomegaly present Auscultation: normal bowel sounds General: Yes no CVA tenderness Back/Spine/Pelvis Back: no CVA tenderness Skin General skin exam: no rashes or lesions noted Neuro General: oriented to person, oriented to place and oriented to time Extrem General: Yes normal to inspection and Yes full ROM Assessment and Plan Assessment & Plan (1) Pre-op evaluation: Code(s): Z01.818 - Encounter for other preprocedural examination Plan: low risk of cardiovascular complications; cleared for surgery (2) Hyperlipidemia: Code(s): E78.5 - Hyperlipidemia, unspecified Plan: stab;le; same rx (3) Diabetes mellitus with coincident hypertension: Code(s): E11.9 - Type 2 diabetes mellitus without complications; I10 - Essential (primary) hypertension Plan: stable; same rx (4) Essential hypertension: Code(s): I10 - Essential (primary) hypertension Plan: stable; same rx Coding Level of Care Code Est Pt Level 4 (40967) Diagnoses Pre-op evaluation Z01.818 Hyperlipidemia E78.5 Diabetes mellitus with coincident hypertension E11.9; I10 Essential hypertension I10
[2024-04-02 09:08] VITALS: BP 150/64; PULSE 96; O2SAT 97; BMI 26.9
== END 2024-04-02 09:31 | disposition home or self-care (01) ==
PROVIDERS: PCP Internal Medicine; Visit Provider Internal Medicine
DX: E11.9 Type 2 diabetes mellitus without complications (principal); E78.5 Hyperlipidemia, unspecified; Z01.818 Encounter for other preprocedural examination; I10 Essential (primary) hypertension
CPT/HCPCS: 99214

== ENCOUNTER 2024-04-26 09:53 | Outpatient (AMB) | payer OTHER, SELFPAY ==
[2024-04-26 09:56] VITALS: BP 118/68; PULSE 84; O2SAT 95; BMI 27.2
--- NOTE | 2024-04-26 09:56 | A.OFFPC_ITS ---
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 Accompanied by: Self / Same As Patient Allergies No Known Allergies [No Known Allergies*] Allergy (Verified 04/26/24 09:59) Medication List - Last Reconciled 04/27/24 by Indio Orr MD amlodipine-benazepril 10-20 mg 1 cap PO DAILY blood pressure monitor As directed metformin 500 mg PO DAILY rosuvastatin 10 mg PO DAILY Tobacco use date assessed: 04/02/24 Fall risk assessment: No Falls in past year Last assessed Fall Risk: 04/26/24 Dental Screening Dental Screen Date: 04/02/24 HPI pe HPI Details hypertension diabetes and hyperlipidemia; compliant [facility] Medical History (Updated 04/05/24 @ 12:40 by Indio Orr MD) Other and unspecified hyperlipidemia Essential hypertension Type 2 diabetes mellitus with unspecified complications 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 Surgical History (Updated 04/02/24 @ 09:12 by STEVE Biggs) History of dental surgery Family History Father Hypertension Mother Hypertension Diabetes Social History Housing: Apartment Alcohol intake: never Patient Tobacco Use Status: Former Tobacco user Tobacco use type: Cigarette e-Cigarette/Vaping Use: Never Used Second Hand Smoke Exposure: No service: No Current occupational status: employed Cognitive needs: No Hearing needs: No Vision needs: Yes (glasses) Questionnaire PHQ-9 Over the last 2 weeks, how often have you been bothered by any of the following problems? 1. Little interest or pleasure in doing things: more than half the days 2. Feeling down, depressed, or hopeless: nearly every day 3. Trouble falling or staying asleep, or sleeping too much: nearly every day 4. Feeling tired or having little energy: more than half the days 5. Poor appetite or overeating: not at all 6. Feeling bad about yourself - or that you are a failure or have let yourself or your family down: several days 7. Trouble concentrating on things, such as reading the newspaper or watching television: not at all 8. Moving or speaking so slowly that other people could have noticed. Or the opposite - being so fidgety or restless that you have been moving around a lot more than usual: not at all 9. Thoughts that you would be better off or of hurting yourself in some way: not at all Total score: 11 Depression Screening Interpretation: Positive Depression Screening Follow-up: Existing condition Depression Screening Done: Yes [id number] - PHQ-9 Billing: Yes Source: Developed by Drs. Carlos Enrique Medina, Chasity Lepe, Mohan Mann and colleagues, with an educational tucker from [employer]. Thrive Questionnaire Date Thrive assessed: 04/02/24 AUDIT C Alcohol Use Questionnaire (AUDIT-C) 1. How often do you have a drink containing alcohol?: Never Total Score: 0 JESUS-7 AMB Questionnaire JESUS-7 Date JESUS - 7 assessed: 04/02/24 Source: Developed by Drs. Carlos Enrique Medina, Chasity Lepe, Mohan Mann and colleagues, with an educational tucker from [employer]. Review of Systems Const Denies chills, Denies fatigue, Denies headache(s) and Denies weight loss Eyes Denies change in vision, Denies diplopia and Denies eye pain ENT Denies vertigo, Denies dizziness, Denies headache(s) and Denies nasal discharge Card Denies chest pain, Denies rapid heart rate and Denies dyspnea on exertion Resp Denies chest congestion, Denies cough, Denies pain with cough and Denies dyspnea on exertion GI Denies abdominal pain, Denies hematochezia and Denies change in bowel habits Musc Denies myalgias, Denies arthralgias and Denies joint swelling Skin/Breast Denies lesions and Denies unusual bruising Neuro Denies vertigo, Denies dizziness, Denies headache(s) and Denies focal weakness Endo Denies fatigue Physical exam (Primary Care) Vital Signs: Last Vital Signs Pulse 84 04/26/24 09:56 BP 118/68 04/26/24 09:56 Pulse Ox 95 04/26/24 09:56 Oxygen Delivery Method Room Air 04/26/24 09:56 BMI result Body Mass Index 27.2 Tobacco/Smoking Status: Tobacco use Status Tobacco use date assessed 04/02/24 04/26/24 09:56 Patient Tobacco Use Status Former Tobacco user 04/26/24 09:56 Tobacco use type Cigarette 04/26/24 10:05 e-Cigarette/Vaping Use Never Used 04/26/24 09:56 PHQ-9: PHQ-9 Score PHQ-9: Total score 11 04/26/24 10:18 Depression Screening Interpretation: Positive Depression Screening Follow-up: Existing condition Thrive Assessment: Date of Thrive Assessment Date Thrive assessed 04/02/24 04/26/24 09:56 Const General: cooperative, healthy appearing and no acute distress Orientation/consciousness: oriented to person, oriented to place and oriented to time HENMT Head: Yes normal to inspection, Yes normocephalic and Yes atraumatic Mouth: Normal oral and palatal mucosa present and tongue normal Throat: Yes posterior oropharynx normal and Yes uvula midline Eyes General: appearance normal, both eyes and all related structures Neck Neck: Yes normal visual inspection, Yes full ROM and Yes no lymphadenopathy Thyroid: Thyroid normal Carotids: normal carotid upstroke Chest Chest palpation & inspection: normal inspection of the chest Resp Effort & Inspection: normal respiratory effort and able to speak in complete sentences Auscultation: clear to auscultation bilaterally Cardio Jugular venous distension: no JVD Palpation: normal PMI Rate: regular rate Rhythm: regular rhythm Heart sounds: S1 normal heart sound present and S2 normal heart sound present GI Inspection: Yes normal to inspection Palpation (GI): Soft to palpation and No hepatosplenomegaly present Auscultation: normal bowel sounds General: Yes no CVA tenderness Back/Spine/Pelvis Back: no CVA tenderness Skin General skin exam: no rashes or lesions noted Neuro General: oriented to person, oriented to place and oriented to time Extrem General: Yes normal to inspection and Yes full ROM Results AMB Hemoglobin A1c AMB Hemoglobin A1c 6.2 % Last Edit by Viv Jackson CMA on 04/26/24 10 :19 Results Reviewed Results Reviewed: Laboratory Last Values Hgb A1c (Clinic) 6.2 % (4.0-6.0) H 04/26/24 09:59 Assessment and Plan Assessment & Plan (1) Physical exam: Code(s): Z00.00 - Encounter for general adult medical examination without abnormal findings Plan: stable; do labs (2) Diabetes mellitus with coincident hypertension: Code(s): E11.9 - Type 2 diabetes mellitus without complications; I10 - Essential (primary) hypertension Plan: stable; same rx (3) Hyperlipidemia: Code(s): E78.5 - Hyperlipidemia, unspecified Plan: stable; same rx (4) Essential hypertension: Code(s): I10 - Essential (primary) hypertension Plan: stable; same rx Orders: Orders Prostate Specific Antigen Scr Today Z00.00 - Encounter for general adult medical examination without abnormal findings Comprehensive [place]. Panel Fast Today Z13.9 - Encounter for screening, unspecified Hemoglobin A1c Today R73.9 - Hyperglycemia, unspecified AMB Hemoglobin A1c 08 Z13.9 - Encounter for screening, unspecified Lipid Panel Today Z13.220 - Encounter for screening for lipoid disorders Thyroid Stimulating Hormone Today Z13.29 - Encounter for screening for other suspected endocrine disorder Complete Blood Count Auto Diff Today Z13.0 - Encounter for screening for diseases of the blood and blood-forming organs and certain disorders involving the immune mechanism Microalbumin, Random (w Creat) Today E11.69 - Type 2 diabetes mellitus with other specified complication, E66.01 - Morbid (severe) obesity due to excess calories Coding Level of Care Code Est Pt Prev Care 40-64y(04050) Diagnoses Physical exam Z00.00 Diabetes mellitus with coincident hypertension E11.9; I10 Hyperlipidemia E78.5 Essential hypertension I10
== END 2024-04-26 10:28 | disposition home or self-care (01) ==
PROVIDERS: PCP Internal Medicine; Visit Provider Internal Medicine
DX: Z00.00 Encounter for general adult medical examination without abnormal findings (principal); E11.69 Type 2 diabetes mellitus with other specified complication; I10 Essential (primary) hypertension; E78.5 Hyperlipidemia, unspecified
CPT/HCPCS: 83036; 99396

== ENCOUNTER 2024-05-05 13:17 | Outpatient (AMB) | payer OTHER, SELFPAY ==
--- NOTE | 2024-05-05 13:30 | A.OFFVIS_ITS ---
Vital Signs 05/05/24 13:33 Height 5 ft 11 in Weight 195 lb BMI 27.2 Intake Visit Reasons: OV- LT hand injury-DOI 10/28/23 WC related 6 wk f/u Intake Note: Carlos Enrique is a 63 year old right hand dominant male who presents today for a follow up evaluation of a work related injury to the left hand, DOI 10/28/23. Patient has been going to OT, reports it has been helpful. He states he reports he also does home exercises helping with stiffness. Patient reports on and off minimal soreness at night. Patient takes motrin for pain PRN. Allergies No Known Allergies [No Known Allergies*] Allergy (Verified 05/05/24 13:33) HPI HPI OV- LT hand injury-DOI 10/28/23 WC related 6 wk f/u: Details: Carlos Enrique is a 63 year old right hand dominant Diabetic man who returns to discuss his left hand stiffness. 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 He was seen at [facility] and treated with a cast for the next 4 weeks, which was removed on 12/01/23. He presents today saying his stiffness has been improving. He continues to have stiffness, particularly in the mornings, but he feels he has improved with his exercises and is happy with this. He has been attending OT hand therapy and working on ROM exercises at home. He has some minimal soreness, primarily at night, but this is managed with Motrin. [facility], [facility] Medical History (Updated 04/05/24 @ 12:40 by Indio Orr MD) Other and unspecified hyperlipidemia Essential hypertension Type 2 diabetes mellitus with unspecified complications 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 Surgical History (Updated 04/02/24 @ 09:12 by STEVE Biggs) History of dental surgery Family History Father Hypertension Mother Hypertension Diabetes Social History Housing: Apartment Alcohol intake: never Patient Tobacco Use Status: Former Tobacco user Tobacco use type: Cigarette e-Cigarette/Vaping Use: Never Used Second Hand Smoke Exposure: No service: No Current occupational status: employed Cognitive needs: No Hearing needs: No Vision needs: Yes (glasses) Physical Exam Vital Signs: BMI result Body Mass Index 27.2 Extrem Other: Evaluation of Left Upper Extremity: The patient is alert, oriented, and in no acute distress Neuro: Median, Ulnar, Radial nerves motor and sensory grossly intact Vascular: Cap refill brisk ROM: He can bring his fingers closed to a weak fist and back into full extension Nearly symmetrical pronosupination Normal wrist ROM Assessment & Plan Assessment & Plan (1) Stiffness of left hand joint: Code(s): M25.642 - Stiffness of left hand, not elsewhere classified Category: Medical Plan Assessment & Plan: 1. Left hand stiffness, S/P 4th metacarpal shaft fracture, DOI: 10/28/23 Fracture well healed This is a workers comp injury I educated him about this condition I discussed treatment options, and explained that there is no operative treatment for this He has been attending OT hand therapy and has made good improvement in his ROM. I am hopeful that he will have good use of his hand & be able to return to work in the next 4-6 weeks if he continues with OT hand therapy. I recommend he continue with OT hand therapy & at-home exercises. I ordered another course of OT hand therapy to work on normalizing function & strengthening, with the goal of returning to work as a [employer] in the next 4 weeks I encouraged him to use his left hand for more lightweight and mid weight activities at home, trying to build strength and dexterity in anticipation of returning to work. He should be working up to heavier activities 3 and 4 weeks from now. 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 He was given a note to remain out of work for the next 4 weeks, until his next appointment. The goal is to return him to work at his next appointment He will follow up in 4 weeks for a ROM check and discuss work restrictions. Please note that greater than 30minutes was spent with this patient going over the history, evaluating the patient and radiographs, formulating possible treatment options, activity plan, discussing them with the patient, and documenting the visit. Scribed for Jenna Rene MD by Brian Brown, medical services assistant, on 05/05/24 at 1:45 PM, EST. Orders: Orders OT Evaluation and Treatment Today M25.642 - Stiffness of left hand, not elsewhere classified Coding Level of Care Code Est Pt Level 4 (77275) Diagnoses Stiffness of left hand joint M25.642
[2024-05-05 13:33] VITALS: BMI 27.2
== END 2024-05-05 14:21 | disposition home or self-care (01) ==
PROVIDERS: PCP Internal Medicine; Visit Provider Orthopaedic Surgery
DX: M25.642 Stiffness of left hand, not elsewhere classified (principal)
CPT/HCPCS: 99213

== ENCOUNTER → 2024-05-05 13:17 | Outpatient (BNVA) | payer OTHER, SELFPAY | PROVIDERS: PCP Internal Medicine; Visit Provider Orthopaedic Surgery | DX: M25.642 Stiffness of left hand, not elsewhere classified (principal); S62.325D Displaced fracture of shaft of fourth metacarpal bone, left hand, subsequent encounter for fracture with routine healing | CPT/HCPCS: 99212 ==

== ENCOUNTER 2024-05-17 14:00 | Outpatient (RCR) | payer OTHER, SELFPAY ==
--- NOTE | 2024-03-30 16:29 | MHC.OT.EP ---
[address] [phone] Occupational Therapy Plan of Care Patient Name: Carlos Enrique Osman Date of Evaluation: 03/30/24 Diagnosis: Stiffness/ decreased ability to make a composite fist Pain Location: stiffness Pain Score: 2 Pain Scale Used: Numeric (0 - 10) Aggravating Factors: Pt could not identify; when he waked up he reports increased stiffness Alleviating Factors: Stretching aggressive PROM Assessment: Pt is a 63 yr. 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 The pt. went to [facility] and was treated there and was treated by Dr. Vera for a metacarpal fracture of his 4th digit, w/ casting and splinting. He then had therapy at [facility] for several mos. Pt was unable to RTW because he is unable to make a composite fist w/ his L hand and will not safely be able to climb a ladder. He saw Dr. Rene for a follow up and was diagnosed w/ stiffness of joints in his L hand/ wrist. He has been referred to skilled OT therapy for increased ROM, strength, and functional use of his L hand in order for pt to RTW w/out restrictions. 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 Thank you once again for your referral.
--- NOTE | 2024-03-30 16:29 | MHC.OT.EP ---
[address] [phone] Occupational Therapy Plan of Care Patient Name: Carlos Enrique Osman Date of Evaluation: 03/30/24 Diagnosis: Stiffness/ decreased ability to make a composite fist Pain Location: stiffness Pain Score: 2 Pain Scale Used: Numeric (0 - 10) Aggravating Factors: Pt could not identify; when he waked up he reports increased stiffness Alleviating Factors: Stretching aggressive PROM Assessment: Pt is a 63 yr. 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 The pt. went to [facility] and was treated there and was treated by Dr. Vera for a metacarpal fracture of his 4th digit, w/ casting and splinting. He then had therapy at [facility] for several mos. Pt was unable to RTW because he is unable to make a composite fist w/ his L hand and will not safely be able to climb a ladder. He saw Dr. Rene for a follow up and was diagnosed w/ stiffness of joints in his L hand/ wrist. He has been referred to skilled OT therapy for increased ROM, strength, and functional use of his L hand in order for pt to RTW w/out restrictions. 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 Thank you once again for your referral.
--- NOTE | 2024-05-04 08:46 | MHC.OT.OP ---
[address] [phone] F: [phone] Occupational Therapy Progress Note Patient Name: Carlos Enrique Osman Diagnosis: Stiffness/ decreased ability to make a composite fist Date of Surgery: Date of Evaluation: 03/30/24 Treatments to Date: 10 Cancellations to Date: No Shows to Date: Subjective: I feel like it's getting better. It's not locking up. Pain Score: 4 Pain Location: stiffness Objective Measures: Quick DASH= 50% Inspector Fabric strength= 15lbs. (L) Status: Not Progressing Assessment: Patient was seen today for a skilled OT progress note. At this time patient is making slow progress towards his goals. He continues to report 4-5/10 pain and states his hand is stiff. 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 He reports that he is performing his HEP daily but his hands continue to feel stiff and go back and is unable to make a composite fist. However, with using heat modalities it has been observed that he is able to make a fist. Patient and therapist discussed if progress towards his goals continues to plateau that d/c plan from therapy will be initiated. 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: Pt will increase his ability to extend his RF (isolated) w/out pain - NOT MET (reports 4-5/10 pain) Pt will increase L hand electronic commerce specialist to 45 lbs- (15lbs.) Pt's DASH<5%- NOT MET (increased by 52%) Pt will RTW w/out restriction- NOT MET Frequency and Duration: The patient will be seen 2x a week for 4 weeks Treatment Plan: Therapeutic Exercise Therapeutic Activity Home Exercise Program Patient Education Edema Control ADL Training Ultrasound Iontophoresis Paraffin Fluidotherapy MHP Cold Packs Joint Mobilization Soft Tissue Mobilization Kinesiotaping Continue POC, d/c if at new baseline Electronically Signed By: Jordyn Grant, OTR/L, CLT Reviewed/agree with student documentation: N/A Therapist:
== END 2025-01-13 08:46 | disposition home or self-care (01) ==
LOC: HO.OT 14:00
PROVIDERS: PCP Internal Medicine; Visit Provider Orthopaedic Surgery
DX: M25.642 Stiffness of left hand, not elsewhere classified (principal)
CPT/HCPCS: 97035; 97110; 97112; 97140; 97166; 97535

== ENCOUNTER 2024-06-01 13:46 | Outpatient (AMB) | payer OTHER, SELFPAY ==
--- NOTE | 2024-06-01 14:24 | MHC.OFFVIS ---
Vital Signs 06/01/24 14:30 Height 5 ft 1 in Weight 195 lb BMI 36.8 Intake Visit Reasons: OV- LT hand injury-DOI 10/28/23 WC related 4 wk f/u Intake Note: Carlos Enrique is a 63 year old right hand dominant male who presents today for a follow up evaluation of a work related injury to the left hand, DOI 10/28/23. Patient reports his employer would no longer pay for OT but it was helpful while he was going. Patient would like to discuss work restrictions today. Allergies No Known Allergies [No Known Allergies*] Allergy (Verified 06/01/24 14:30) HPI HPI OV- LT hand injury-DOI 10/28/23 WC related 4 wk f/u: Details: Carlos Enrique is a 63 year old right hand dominant Diabetic man who returns to discuss his left hand stiffness. 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 He was seen at [facility] and treated with a cast for the next 4 weeks, which was removed on 12/01/23. He presents today saying his stiffness has been improving. He continues to have stiffness, particularly in the mornings, but he feels he has improved with his exercises and is happy with this. He has been attending OT hand therapy and working on ROM exercises at home. He says he had some difficulty completing his full course of OT hand therapy as his work would no longer pay for the sessions. He would like to discuss RTW status today. [facility] Medical History (Updated 04/05/24 @ 12:40 by Indio Orr MD) Other and unspecified hyperlipidemia Essential hypertension Type 2 diabetes mellitus with unspecified complications 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 Surgical History (Updated 04/02/24 @ 09:12 by STEVE Biggs) History of dental surgery Family History Father Hypertension Mother Hypertension Diabetes Social History Housing: Apartment Alcohol intake: never Patient Tobacco Use Status: Former Tobacco user Tobacco use type: Cigarette e-Cigarette/Vaping Use: Never Used Second Hand Smoke Exposure: No service: No Current occupational status: employed Cognitive needs: No Hearing needs: No Vision needs: Yes (glasses) Physical Exam Vital Signs: BMI result Body Mass Index 36.8 Extrem Other: Evaluation of Left Upper Extremity: The patient is alert, oriented, and in no acute distress Neuro: Median, Ulnar, Radial nerves motor and sensory grossly intact Vascular: Cap refill brisk ROM: He could bring his fingertips to ~1cm from his palm, and with encouragement could reach his palm He has a small amount of stiffness in the MCP joints Nearly symmetrical pronosupination Normal wrist ROM Assessment & Plan Assessment & Plan (1) Stiffness of left hand joint: Code(s): M25.642 - Stiffness of left hand, not elsewhere classified Category: Medical Plan Assessment & Plan: 1. Left hand stiffness, S/P 4th metacarpal shaft fracture, DOI: 10/28/23 Fracture well healed This is a workers comp injury I educated him about this condition I discussed treatment options, and explained that there is no operative treatment for this He has been attending OT hand therapy and has made good improvement in his ROM. I recommend he continue with OT hand therapy & at-home exercises. 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 He was given a note to return to work on 06/08/24 full duty without restrictions He will follow up prn. Scribed for Jenna Rene MD by Brian Brown, medical asst, on 06/01/24 at 2:45 PM, EST. Coding Level of Care Code Est Pt Level 3 (36137) Diagnoses Stiffness of left hand joint M25.642
[2024-06-01 14:30] VITALS: BMI 36.8
== END 2024-06-01 14:51 | disposition home or self-care (01) ==
PROVIDERS: PCP Internal Medicine; Visit Provider Orthopaedic Surgery
DX: M25.642 Stiffness of left hand, not elsewhere classified (principal); Z04.2 Encounter for examination and observation following work accident
CPT/HCPCS: 99213

== ENCOUNTER → 2024-06-01 13:46 | Outpatient (BNVA) | payer OTHER, SELFPAY | PROVIDERS: PCP Internal Medicine; Visit Provider Orthopaedic Surgery | DX: M25.642 Stiffness of left hand, not elsewhere classified (principal) | CPT/HCPCS: 99212 ==

== ENCOUNTER 2024-09-20 08:10 | Outpatient (REF) | payer OTHER, SELFPAY ==
--- OUTSIDE RECORDS SUMMARY | 2024-09-20 08:45 | XMS_ITS | Clinical Summary ---
Author Organization [facility] Address [address] [place] [phone] Phone Care Team Providers Care Superannuation Clerk Name Role Phone Burke ROBLES, [facility] Primary Care Provider [phone] [facility] Unavailable [phone] Reason for Visit and Chief Complaint Established Patient Plan of Treatment Pending Tests Order Diagnosis Results Due Ordering P rovider Follow Up - Return to School / Work Note Conor Vera MD Last Documented On 4 10:50AM ; [facility] Follow Up - Appointment 1 Month Nondisp fx of shaft of fourth MC bone, left hand, init 12/01/23 Conor Vera MD Last Documented On 4 10:50AM ; [facility] Assessments Includes: Assessments from this encounter No Assessments Recorded Medical Equipment - Implanted Devices Includes: Current Devices No Medical Equipment Recorded Medications Includes: Medications discussed during this encounter and other current Medications Current Medications (continue as prescribed) motrin [MANUAL] Oral Tablet 12/01/2023 Provider: Diagnosis: Last Documented On 4 10:29AM By Aamir Morrow ; [facility] Medications Administered Includes: Administered Medications from this encounter No Administered Medications Recorded Vital Signs Includes: Vital Signs from this encounter Vital Name 12/01/2023 10:29A Blood Pressure Sitting (mmHg) 122/87 Pulse Rate-Sitting (bpm) 87 Temp-Temporal 97 Height (in) 71 Weight (lb) 185 Body Mass Index 25.8 Body Surface Area 2 Oxygen Saturation (%) 97 Last Documented: On 12/01/2023 10:29A M ; [facility] Results Includes: Results discussed during this encounter No Results Recorded For Specified Dates History of Present Illness Includes: History of Present Illness from this encounter No History of Present Illness Recorded Social History No Social History Recorded - Smoking Status Unknown Procedures and Surgical History Includes: Procedures from this encounter Procedures Code Diagnosis Performing Provider Service Location Service Date X-Ray Exam Of Hand, min 3 views (Left) [id number] Nondisp fx of shaft of fourth MC bone, left hand, init [facility] 12/01/2023 Last Documented On 9:57AM ; [facility] Medical History Includes: Medical History addressed during this encounter No Medical History Recorded Family History Includes: Family History addressed during this encounter No Family History Recorded Review of Systems Includes: Review of Systems from this encounter No Review of Systems Recorded Mental Status Includes: Mental Status from this encounter No Mental Status Recorded Functional Status Includes: Functional Status from this encounter No Functional Status Recorded Physical Exam Includes: Physical Exam from this encounter Encounters Encounter Provider Location Date Check-In Time Check-Out Time Diagnosis Established Patient Conor Vera MD [facility] [place] 12/01/19 24 10:20AM 10:48AM Insurance Includes: Active Insurance Policies Plan Name Member ID Group # Subscriber Relationship Effect eliezer Dates 1 - [employer] [id number] Carlos Enrique Marquez Clinical Notes Includes: Clinical Notes from this encounter * Progress note Date Encounter Last Documented by 12/01/2023 Established Patient Bakari davis on 12/01/2023; 10:50 AM, Conor Vera MD; [facility] Current Medication - motrin [MANUAL] Oral Tablet 0 days, 0 refills Physical Findings - Vitals taken 12/01/2023 10:29 am BP-Sitting 122/87 mmHg Pulse Rate-Sitting 87 bpm Temp-Temporal 97 F Height 71 in Weight 185 lbs Body Mass Index 25.8 kg/m2 Body Surface Area 2 m2 Oxygen Saturation 97 % Chief complaint: Follow-up fracture left fourth metacarpal History of Present Illness: This is a 63-year-old man who sustained a fracture of his left fourth metacarpal on 10/28/23. He was last seen here on 11/06/2023. He is treated with an ulnar gutter splint. This is a Worker's Compensation injury. Physical exam: The splint is removed. There is minimal residual swelling. There is minimal tenderness at the fracture site. The patient resists motion of any of his digits at this point. Rotation of the ring finger appears normal within the limits of my exam. Imaging: Radiographs of the left hand taken today are compared to the prior images. There is a mildly displaced mildly shortened fracture of the shaft of the fourth metacarpal. There has been no further fracture displacement. Good fracture callus is present. Impression: Fracture left fourth metacarpal Plan: I explained to the patient the importance of being vigorous with his range of motion exercises. I prescribed occupational therapy or physical therapy for range of motion of his hand. 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 I gave him a note for return to light duty activities with no lifting greater than 20 pounds and no ladders or climbing. I asked him to return in 4 weeks for reexamination and x-ray of the left hand. Plan StartCited - Nondisp fx of shaft of fourth MC bone, left hand, init Follow Up/Appointment: 1 Month EndCited StartCited - Other Follow Up/Return to: School / Work Note EndCited
--- OUTSIDE RECORDS SUMMARY | 2024-09-20 08:45 | XMS_ITS | Clinical Summary ---
Author Organization [facility] Address [address] [place] [phone] Phone Care Team Providers Care Wheelabrator Operator Name Role Phone Burke ROBLES, Isabelle Primary Care Provider [phone] [facility] [phone] Reason for Visit and Chief Complaint Established Patient Plan of Treatment Pending Tests Order Diagnosis Results Due Ordering P rovider Follow Up - Appointment 1 Month Nondisp fx of shaft of fourth MC bone, left hand, init 02/03/24 Yaa TAYLOR Last Documented On 4 9:21AM ; [facility] - X-Rays Hand, left, 3 views ([id number]) Nondisp fx of shaft of fourth MC bone, left hand, init 02/05/24 Yaa TAYLOR Last Documented On 4 9:21AM ; [facility] Assessments Includes: Assessments from this encounter No Assessments Recorded Medical Equipment - Implanted Devices Includes: Current Devices No Medical Equipment Recorded Medications Includes: Medications discussed during this encounter and other current Medications Current Medications (continue as prescribed) motrin [MANUAL] Oral Tablet 12/01/2023 Provider: Diagnosis: Last Documented On 4 10:29AM By Aamir Morrow ; [facility] Medications Administered Includes: Administered Medications from this encounter No Administered Medications Recorded Vital Signs Includes: Vital Signs from this encounter Vital Name 02/03/2024 08:50A Blood Pressure Sitting (mmHg) 116/80 Pulse Rate-Sitting (bpm) 80 Temp-Temporal 96.9 Height (in) 71 Weight (lb) 187 Body Mass Index 26.1 Body Surface Area 2 Oxygen Saturation (%) 97 Last Documented: On 02/03/2024 8:50AM ; [facility] Results Includes: Results discussed during this encounter [...] Exam Of Hand, min 3 views (Left) [id number] Nondisp fx of shaft of fourth MC bone, left hand, init [facility] 02/03/2024 Last Documented On 4 8:46AM ; [facility] Medical History Includes: Medical History addressed [...] Check-In Time Check-Out Time Diagnosis Established Patient Yaa TAYLOR [facility] 02/03/20 24 9:40AM 9:08AM Insurance Includes: Active Insurance Policies Plan Name Member ID Group # Subscriber Relationship Effect eliezer Dates 1 - [employer] [id number] Carlos Enrique Osman Self Clinical Notes Includes: Clinical Notes from this encounter * Progress note Date Encounter Last Documented by 02/03/2024 Established Patient Bakari davis on 02/03/2024; 9:21 AM, Yaa TAYLOR; [facility] Current Medication - motrin [MANUAL] Oral Tablet 0 days, 0 refills Physical Findings - Vitals taken 02/03/2024 08:50 am BP-Sitting 116/80 mmHg Pulse Rate-Sitting 80 bpm Temp-Temporal 96.9 F Height 71 in Weight 187 lbs Body Mass Index 26.1 kg/m2 Body Surface Area 2 m2 Oxygen Saturation 97 % Chief complaint: Follow-up fracture left fourth metacarpal Date of injury: 10/28/2023 History of present illness: The patient is a 63-year-old zhhik-zhyv-nugvpltk male who sustained a fracture to his left fourth metacarpal on 10/28/2023. He has been treated nonsurgically. He was last seen in the office on 12/29/2023. At that appointment he was prescribed OT for left hand range of motion and instructed to work on aggressive range of motion exercises at home. He was allowed to return to work with light duty restrictions. He is seen today for routine follow-up. Patient complains of left hand pain and stiffness and is unable to make a fist. He states he has been performing OT 3 times a week and doing home exercises. He admits he has not been doing home exercises very much and is limited in the exercises that he performs on his own. He states his exercises have been limited to a squeeze ball and stretching his fingers out flat on the surface. He has been taking Motrin infrequently. 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 Physical exam: No swelling, erythema or skin breakdown noted throughout the left hand. Nontender palpation throughout the left hand including over the fracture site. Full extension of all digits. Moderate restriction in flexion of the index, long, ring and little fingers. Unable to make a fist. Greater than 4 cm from pulp to palm. Neurovascular intact. Diagnostic imaging: Radiographic images obtained today of the left hand 3 views are compared to those from 12/29/2023. There is no loss of fracture reduction of the fourth metacarpal fracture. Fracture callus present. Assessment: Fracture left fourth metacarpal with persistent left hand stiffness Plan: Continue OT for hand range of motion exercises. I discussed with the patient the importance of aggressive range of motion exercises to be performed at home including both active and passive range of motion. Exercises were demonstrated for the patient. He may continue work with light duty restrictions as previously written. He is to follow-up in 4 weeks for reexamination. No x-rays necessary at that appointment. Patient understands and agrees with the above-stated plan. This case has been discussed with Dr. Vera. Plan StartCited - Nondisp fx of shaft of fourth MC bone, left hand, init Follow Up/Appointment: 1 Month In House X-Rays/X-Rays: Hand, left, 3 views ([id number]) EndCited
--- OUTSIDE RECORDS SUMMARY | 2024-09-20 08:45 | XMS_ITS ---
Author Organization [facility] Address [address] [place] [phone] Phone Care Team Providers Care Machine Cutter Name Role Phone Isabelle Turk MD Primary Care Provider [phone] [facility] Unavailable [phone] Plan of Treatment No Plan of Treatment Recorded Assessments Includes: Assessments for all patient encounters No Assessments Recorded Medical Equipment - Implanted Devices Includes: Current and historical Devices No Medical Equipment Recorded Medications Includes: Current and historical Medications Current Medications (continue as prescribed) motrin [MANUAL] Oral Tablet 12/01/2023 Provider: Diagnosis: Last Documented On 10:29AM By Aamir Morrow ; [facility] Medications Administered Includes: Administered Medications in patient's chart No Administered Medications Recorded Vital Signs Includes: Vital Signs from 09/20/2023 through 09/20/2024 Vital Name 03/02/2024 08:03A 02/03/2024 08:50A 12/29/2023 10:12A 12/01/2023 10:29A 11/06/2023 10:10A Blood Pressure Sitting (mmHg) 137/80 116/80 135/75 122/87 134/95 Pulse Rate-Sitting (bpm) 91 80 84 87 103 Temp-Temporal 96.8 96.9 97 97 97 Height (in) 71 71 71 71 71 Weight (lb) 190 187 185 185 185 Body Mass Index 26.5 26.1 25.8 25.8 25.8 Body Surface Area 2.1 2 2 2 2 Oxygen Saturation (%) 97 97 96 97 97 Last Documented: On 03/02/2024 8:03AM ; [facility] On 02/03/2024 8:50AM ; [facility] On 12/29/2023 10:12AM ; [facility], On 12/01/2023 10:29AM ; [facility], On 11/06/2023 10:10AM ; [facility], Vital Name 10/30/2023 09:38A Blood Pressure Sitting (mmHg) 153/85 Pulse Rate-Sitting (bpm) 86 Temp-Temporal 97.4 Height (in) 71 Weight (lb) 182 Body Mass Index 25.4 Body Surface Area 2 Oxygen Saturation (%) 97 Last Documented: On 10/30/2023 9:39AM ; [facility], Results Includes: Results from 09/20/2023 through 09/20/2024 No Results Recorded For Specified Dates History of Present Illness History of Present Illness not supported for this document type No History of Present Illness Recorded Social History No Social History Recorded - Smoking Status Unknown Procedures and Surgical History Includes: Procedures from 09/20/2023 through 09/20/2024 Procedures Code Diagnosis Performing Provider Service Location Service Date X-Ray Exam Of Hand, min 3 views (Left) [id number] Nondisp fx of shaft of fourth MC bone, left hand, init Yaa TAYLOR [facility], 02/03/2024 Last Documented On 4 8:46AM ; [facility], X-Ray Exam Of Hand, min 3 views (Left) [id number] Nondisp fx of shaft of fourth MC bone, left hand, init Conor Vera MD [facility], 12/29/2023 Last Documented On 4 9:49AM ; [facility], X-Ray Exam Of Hand, min 3 views (Left) [id number] Nondisp fx of shaft of fourth MC bone, left hand, inrenato Vera MD [facility], 12/01/2023 Last Documented On 4 9:57AM ; [facility], X-Ray Exam Of Hand, min 3 views (Left) [id number] Nondisp fx of shaft of fourth MC bone, left hand, inrenato Vera MD [facility], 11/06/2023 Last Documented On 4 10:03AM ; [facility] Medical History Includes: Medical History in patient's chart No Medical History Recorded Family History Includes: Family History in patient's chart No Family History Recorded Review of Systems Review of Systems not supported for this document type No Review of Systems Recorded Mental Status No Mental Status Recorded Functional Status No Functional Status Recorded Physical Exam Physical Exam not supported for this document type No Physical Exam Recorded Encounters Includes: Encounters from 09/20/2023 through 09/20/2024 Encounter Provider Location Date Check-In Time Check-Out Time Diagnosis Established Patient [facility] 03/02/20 8:00AM 8:39AM Established Patient Yaa TAYLOR [facility] 02/03/20 9:40AM 9:08AM Established Patient Conor Vera MD [facility] 12/29/19 9:40AM 10:44AM Established Patient Conor Vera MD [facility] 12/01/19 10:20AM 10:48AM Established Patient Conor Vera [facility] 11/06/19 9:40AM 10:15AM New Patient Conor Vera MD [facility], 10/30/19 9:20AM 9:47AM Insurance Includes: Active Insurance Policies Plan Name Member ID Group # Subscriber Relationship Effect eliezer Dates 1 - [employer] [id number] Carlos Enrique Osman Self Clinical Notes Includes: Signed Clinical Notes starting from 09/01/2022 * Progress note Date Encounter Last Documented by 03/02/2024 Established Patient Bakari davis on 03/02/2024; 8:55 AM, Rosa Hurley PA-C; [facility] Reason For Visit Chief complaint: Follow-up left fourth metacarpal fracture Date of injury: 10/28/2023 History of Present Illness: Patient is a mljqy-otsd-ochyxsos 63-year-old male who sustained a fourth metacarpal fracture in October. Following immobilization, once he was cleared to perform ROM of the hand (12/01/23), patient initially was extremely resistant to perform exercises due to pain and has had significant trouble regaining his range of motion and strength. The need for early aggressive range of motion was discussed in great detail at his follow-up appointments as well as the risk associated with prolonged immobilization. OT was increased to 5x per week at his follow up appointment on 12/29/23 due to stiffness.He has been working aggressively with occupational therapy as well as doing home exercises but has plateaued and is not making further progress. His occupational therapy has been discontinued secondary to insurance limitations. He denies numbness tingling throughout the extremity. He is extremely anxious about his dysfunction and wishes to return to work but is unable to perform his work tasks. He would like to return to work for the next couple of years before half-way. 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 He has scheduled an appointment with [facility] as a second opinion as he is frustrated with his poor progress. It is unclear is this is a hand specialist or generalized orthopedics. Physical exam: Well-appearing male in no acute distress found seated on the exam table there is no swelling, erythema, ecchymosis noted throughout the left hand. He has significant limited range of motion of all of the digits from the index to the small finger and inability to make a fist. Pulp to palm distance of the index finger is about 2 cm, pulp to palm distance of the long and ring fingers about 3 cm. Endpoint of motion is extremely firm. He also lacks extension at the MCP joints compared to the contralateral limb. He has pain on fourth the dorsal aspects of the fingers as well as the volar aspect with range of motion. No significant tenderness to palpation throughout the forearm. Motor and sensory intact throughout the radial, ulnar and median nerve distributions Imaging: No imaging performed at today's visit Impression: 4 months status post fourth metacarpal fracture with significant weakness, stiffness and dysfunction Plan: - Weightbearing: Weightbearing as tolerated left upper extremity - Activity/Therapy: Recommend continued aggressive physical therapy. continue light duty. Work note provided to avoid climbing, ladders and lifting greater than 20 pounds in his left hand, Caution to avoid reinjury - Dressing/DME: None - Pain control: Elevate affected extremity; apply ice to affected area; over the counter pain medication such as Tylenol or NSAID's - Follow up: Referral to hand specialist to discuss treatment options regarding to stiffness and dysfunction - X-ray at follow up: none Case discussed with Dr Vera Physical Findings - Vitals taken 03/02/2024 08:03 am BP-Sitting 137/80 mmHg Pulse Rate-Sitting 91 bpm Temp-Temporal 96.8 F Height 71 in Weight 190 lbs Body Mass Index 26.5 kg/m2 Body Surface Area 2.1 m2 Oxygen Saturation 97 % Plan StartCited - Nondisp fx of shaft of fourth MC bone, left hand, init Follow Up/Appointment: PRN EndCited StartCited - Other Follow Up/Return to: School / Work Note EndCited * Progress note Date Encounter Last Documented by 02/03/2024 Established Patient Last documen ryan on 02/03/2024; 9:21 AM, Yaa TAYLOR; [facility], Current Medication - motrin [MANUAL] Oral Tablet [...] present illness: The patient is a 63-year-old rwkdd-lyta-alpiwolt male who sustained a fracture to his [...] Motrin infrequently. 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 Physical exam: No swelling, erythema or skin [...] In House X-Rays/X-Rays: Hand, left, 3 views ([id number]) EndCited * Progress note Date Encounter Last Documented by 12/29/2023 Established Patient Last documen ryan on 12/29/2023; 10:28 AM, Conor Vera MD; [facility], Current Medication - motrin [MANUAL] Oral Tablet 0 days, 0 refills Physical Findings - Vitals taken 12/29/2023 10:12 am BP-Sitting 135/75 mmHg Pulse Rate-Sitting 84 bpm Temp-Temporal 97 F Height 71 in Weight 185 lbs Body Mass Index 25.8 kg/m2 Body Surface Area 2 m2 Oxygen Saturation 96 % Chief complaint: Follow-up fracture left fourth metacarpal History of Present Illness: This is a 63-year-old man who sustained a fracture of his left fourth metacarpal on 10/28/2023. He was last seen here on 12/01/2023. I prescribed occupational therapy for range of motion of his hand. 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 I returned him to light duty activities at that time. He reports that he was unable to return to light duty as they want him to be back to 100% before returning to work. He reports that he has been going to therapy twice weekly but still has stiffness and pain in his hand. Physical exam: The left hand has mild residual swelling. There is no ecchymosis. There is no redness. There is no tenderness at the fracture site. He continues to have moderate restriction in flexion of his index, long, ring, and little fingers. He is resistant to allow passive flexion of those digits. Skin and neurovascular exams are intact. Imaging: Radiographs of the left hand taken today are compared to the prior images. There has been no loss of fracture reduction. There appears to be progressive fracture callus. Impression: Fracture left fourth metacarpal with persistent left hand stiffness. Plan: I think the patient needs to be more aggressive with his range of motion exercises. I tried to emphasize that to him. I recommended that he increase occupational therapy to 5 times weekly. I emphasized the importance of being aggressive with his home exercise program. He may continue with light duty restrictions as previously written. I asked him to return in 4 weeks for reexamination and x-ray of the left hand. Plan StartCited - Nondisp fx of shaft of fourth MC bone, left hand, init Follow Up/Appointment: 1 Month EndCited * Progress note Date Encounter Last Documented by 12/01/2023 Established Patient Last documen ryan on 12/01/2023; 10:50 AM, Conor Vera MD; [facility] Current Medication - motrin [MANUAL] Oral Tablet [...] of his hand. 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 I gave him a note for return [...] Up/Return to: School / Work Note EndCited * Progress note Date Encounter Last Documented by 11/06/2023 Established Patient Last abisai davis on 11/06/2023; 10:13 AM, Conor Vera MD; [facility], Physical Findings - Vitals taken 11/06/2023 10:10 am BP-Sitting 134/95 mmHg Pulse Rate-Sitting 103 bpm Temp-Temporal 97 F Height 71 in Weight 185 lbs Body Mass Index 25.8 kg/m2 Body Surface Area 2 m2 Oxygen Saturation 97 % Chief complaint: Follow-up fracture left fourth metacarpal History of Present Illness: This is a 63-year-old man who sustained a fracture of his left fourth metacarpal on . He was seen here on 10/30/2023. He is being treated with an ulnar gutter splint. He has no complaints except persistent pain in his hand. 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 Physical exam: The left hand has mild residual swelling. There is tenderness at the fracture site. Rotation of the digits appears normal. Neurovascular and skin exams are intact. Imaging: Radiographs of the left hand taken today are compared to the prior images. There is a mildly displaced mildly comminuted fracture of the distal shaft of the fourth metacarpal with mild shortening. There has been no significant change in reduction compared to the images from 10/28/2023. Impression: Fracture left fourth metacarpal shaft Plan: I instructed the patient to continue use of the ulnar gutter splint full-time except he may remove it once daily for gentle bathing. He should be cautious about reinjury. He should avoid weightbearing on the left upper extremity. I asked him to return in 3 weeks for reexamination and x-ray of the left hand. He asked about returning to work and I told him it would probably be 4 to 6 weeks. Plan StartCited - Nondisp fx of shaft of fourth MC bone, left hand, init Follow Up/Appointment: 3 weeks EndCited * Progress note Date Encounter Last Documented by 10/30/2023 New Patient Last documented on 10/30/2023; 9:46 AM, Conor Vera MD; [facility], Physical Findings - Vitals taken 10/30/2023 09:38 am BP-Sitting 153/85 mmHg Pulse Rate-Sitting 86 bpm Temp-Temporal 97.4 F Height 71 in Weight 182 lbs Body Mass Index 25.4 kg/m2 Body Surface Area 2 m2 Oxygen Saturation 97 % Chief complaint: Left hand injury History of Present Illness: This is a 63-year-old man who was at work on 10/28/2023. He was going down a ladder when he slipped and fell and struck his left hand against a wall. He had pain in the hand. He was seen in the emergency room and was found to have a fracture of his fourth metacarpal. He was splinted and orthopedic consultation was requested. He has localized pain over the dorsum of his left hand. He denies numbness or tingling. 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 Physical exam: The ulnar gutter splint is removed from the left hand. There is moderate diffuse swelling of the hand. There is tenderness over the fourth metacarpal. Rotation of the digits is normal. Tendon function is normal. Skin is intact. The fingers are pink and warm with good capillary refill. Imaging: Radiographs of the left hand taken at [facility] on 10/28/2023 reviewed. There is a mildly comminuted mildly displaced fracture of the shaft of the fourth metacarpal with mild apex dorsal angulation. Impression: Fracture left fourth metacarpal. Plan: I reapplied the ulnar gutter splint. The patient should continue that full-time but may remove it once daily for gentle bathing. He should be cautious about reinjury. I asked him to return in 1 week for reexamination and x-ray 3 views of the left hand. Plan StartCited - Nondisp fx of shaft of fourth MC bone, left hand, init Follow Up/Appointment: 1 Week EndCited
--- OUTSIDE RECORDS SUMMARY | 2024-09-20 08:45 | XMS_ITS ---
Care Plan - [facility] Created on: September 20, 2024 Carlos Enrique Osman : 1960 Sex: Male Author Organization [facility] Address [address] [place] [phone] Phone Care Team Providers Care Senior Graphic Designer Name Role Phone Burke ROBLES, Isabelle Primary Care Provider [phone] [facility] Unavailable [phone]
--- OUTSIDE RECORDS SUMMARY | 2024-09-20 08:45 | XMS_ITS | Clinical Summary ---
Author Organization [facility] Address [address] [place] [phone] Phone Care Team Providers Care Assistant Media Buyer Name Role Phone Burke ROBLES, Isabelle Primary Care Provider [phone] [facility] Unavailable [phone] Reason for Visit and Chief Complaint Established Patient Plan of Treatment No Plan of Treatment Recorded Assessments Includes: Assessments from this encounter No Assessments Recorded Medical Equipment - Implanted Devices Includes: Current Devices No Medical Equipment Recorded Medications Includes: Medications discussed during this encounter and other current Medications Current Medications (continue as prescribed) motrin [MANUAL] Oral Tablet 12/01/2023 Provider: Diagnosis: Last Documented On 10:29AM By Aamir Morrow ; [facility], Medications Administered Includes: Administered Medications from this encounter No Administered Medications Recorded Results Includes: Results discussed during this encounter No Results Recorded For Specified Dates History of Present Illness Includes: History of Present Illness from this encounter No History of Present Illness Recorded Social History No Social History Recorded - Smoking Status Unknown Medical History Includes: Medical History addressed during [...] Exam Includes: Physical Exam from this encounter No Physical Exam Recorded Insurance Includes: Active Insurance Policies Plan Name Member ID Group # Subscriber Relationship Effect eliezer Dates 1 - [employer] [id number] Carlos Enrique Jacqui Self Clinical Notes Includes: Clinical Notes from this encounter No Clinical Notes Recorded
--- OUTSIDE RECORDS SUMMARY | 2024-09-20 08:45 | XMS_ITS | Clinical Summary ---
Author Organization [place] [facility] Address [address] [place] [phone] Phone Care Team Providers Care Gift Wrapper Name Role Phone Burke ROBLES, [facility] Primary Care Provider [phone] [place] [facility] [phone] Reason for Visit and Chief Complaint Established Patient Plan of Treatment Pending Tests Order Diagnosis Results Due Ordering P rovider Follow Up - Return to School / Work Note Conor Vera MD Last Documented On 4 8:55AM ; [facility] Follow Up - Appointment PRN Nondisp fx of shaft of fourth MC bone, left hand, init 03/02/24 Rosa Hurley PA-C Last Documented On 4 8:54AM ; [facility] Assessments Includes: Assessments from this encounter No Assessments Recorded Medical Equipment - Implanted Devices Includes: Current Devices No Medical Equipment Recorded Medications Includes: Medications discussed during this encounter and other current Medications Current Medications (continue as prescribed) motrin [MANUAL] Oral Tablet 12/01/2023 Provider: Diagnosis: Last Documented On 4 10:29AM By Aamir Morrow ; [facility] Medications Administered Includes: Administered Medications from this encounter No Administered Medications Recorded Vital Signs Includes: Vital Signs from this encounter Vital Name 03/02/2024 08:03A Blood Pressure Sitting (mmHg) 137/80 Pulse Rate-Sitting (bpm) 91 Temp-Temporal 96.8 Height (in) 71 Weight (lb) 190 Body Mass Index 26.5 Body Surface Area 2.1 Oxygen Saturation (%) 97 Last Documented: On 03/02/2024 8:03AM ; [facility] Results Includes: Results discussed during this [...] Time Diagnosis Established Patient Rosa Hurley PA-C [facility] 03/02/20 8:00AM 8:39AM Insurance Includes: Active Insurance Policies Plan Name Member ID Group # Subscriber Relationship Effect eliezer Dates 1 - [employer] [id number] Carlos Enrique Osman Self Clinical Notes Includes: Clinical Notes from this encounter * Progress note Date Encounter Last Documented by 03/02/2024 Established Patient Bakari davis on 03/02/2024; 8:55 AM, Rosa Hurley PA-C; [facility], Reason For Visit Chief complaint: Follow-up left fourth metacarpal fracture Date of injury: 10/28/2023 History of Present Illness: Patient is a kjeku-ophn-wgsutmbr 63-year-old male who sustained a fourth metacarpal [...] for the next couple of years before correction. 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 He has scheduled an appointment with [facility] as a second opinion as he [...]
--- OUTSIDE RECORDS SUMMARY | 2024-09-20 08:45 | XMS_ITS | Clinical Summary ---
Author Organization [place] [facility] Address [address] [place] [phone] Phone Care Team Providers Care Wet Machine Tender Name Role Phone Burke ROBLES, [facility] Primary Care Provider [phone] [facility] [phone] Reason for Visit and Chief Complaint Established Patient Plan of Treatment Pending Tests Order Diagnosis Results Due Ordering P rovider Follow Up - Appointment 1 Month Nondisp fx of shaft of fourth MC bone, left hand, init 12/29/23 Conor Vera MD Last Documented On 4 10:28AM ; [facility] Assessments Includes: Assessments from this encounter No Assessments Recorded Medical Equipment - Implanted Devices Includes: Current Devices No Medical Equipment Recorded Medications Includes: Medications discussed during this encounter and other current Medications Current Medications (continue as prescribed) motrin [MANUAL] Oral Tablet 12/01/2023 Provider: Diagnosis: Last Documented On 4 10:29AM By Aamir Morrow ; [facility] Medications Administered Includes: Administered Medications from this encounter No Administered Medications Recorded Vital Signs Includes: Vital Signs from this encounter Vital Name 12/29/2023 10:12A Blood Pressure Sitting (mmHg) 135/75 Pulse Rate-Sitting (bpm) 84 Temp-Temporal 97 Height (in) 71 Weight (lb) 185 Body Mass Index 25.8 Body Surface Area 2 Oxygen Saturation (%) 96 Last Documented: On 12/29/2023 10:12A M ; [facility] Results Includes: Results discussed during this encounter [...] Exam Of Hand, min 3 views (Left) [id number] Nondisp fx of shaft of fourth MC bone, left hand, init Conor Vera MD [facility] 12/29/2023 Last Documented On 4 9:49AM ; [facility] Medical History Includes: Medical History addressed [...] Time Diagnosis Established Patient [facility] 12/29/19 24 9:40AM 10:44AM Insurance Includes: Active Insurance Policies Plan Name Member ID Group # Subscriber Relationship Effect eliezer Dates 1 - [employer] [id number] Carlos Enrique Osman Self Clinical Notes Includes: Clinical Notes from this encounter * Progress note Date Encounter Last Documented by 12/29/2023 Established Patient Bakari davis on 12/29/2023; 10:28 AM, Conor Vera MD; [facility] Current Medication - motrin [MANUAL] Oral [...] of his hand. 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
[2024-09-20 09:59] LABS: Alanine Aminotransferase 39 U/L (0-40); Albumin Level 4.4 g/dL (3.5-5.0); Alkaline Phosphatase 70 U/L (39-117); Anion Gap 12 (12-20); Aspartate Amino Transferase 24 U/L (5-37); Blood Urea Nitrogen 17 mg/dL (9-16); Calcium 9.6 mg/dL (8.4-10.2); Carbon Dioxide 24 mmol/L (22-29); Chloride 106 mmol/L (96-108); Cholesterol 177 mg/dL (<200); Estimated Glomerular Filt Rate > 60; Glucose Random 154 mg/dL (60-115); HDL Cholesterol 40 mg/dL (>40); LDL Cholesterol Calculated 112 mg/dL (<100); Potassium 4.3 mmol/L (3.3-5.1); Sodium 138 mmol/L (135-145); Total Protein 7.3 g/dL (6.5-8.0); Triglycerides 125 mg/dL (<150)
== END 2024-09-20 08:11 | disposition home or self-care (01) ==
LOC: HO.LAB 08:10
PROVIDERS: PCP Internal Medicine; Visit Provider Nurse Practitioner Family
DX: E78.5 Hyperlipidemia, unspecified (principal); Q24.5 Malformation of coronary vessels; I25.10 Atherosclerotic heart disease of native coronary artery without angina pectoris; I10 Essential (primary) hypertension; E11.8 Type 2 diabetes mellitus with unspecified complications
CPT/HCPCS: 36415; 80053; 80061; 93005; 99212

== ENCOUNTER 2024-09-20 08:10 | Outpatient (AMB) | payer OTHER, SELFPAY ==
[2024-09-20 08:13] VITALS: BP 100/62; PULSE 81; BMI 26.5
--- NOTE | 2024-09-20 08:13 | A.OFFVIS_ITS ---
Vital Signs 09/20/24 08:13 Height 5 ft 11 in Weight 190 lb 0.615 oz BMI 26.5 BP 100/62 Blood Pressure Location Lt brachial Position Sitting Pulse 81 Pulse Source Monitor Intake Visit Reasons: 1 yr F/U Laboratory Secretary Required: No Allergies No Known Allergies [No Known Allergies*] Allergy (Verified 09/20/24 08:15) Medication List - Last Reconciled 09/20/24 by Bernadette Luis NP-C amlodipine-benazepril 10-20 mg 1 cap PO DAILY blood pressure monitor As directed metformin 500 mg PO DAILY rosuvastatin 10 mg PO DAILY sildenafil 100 mg PO HPI HPI 1 yr F/U: Details: Carlos Enrique is a 64-year-old male with past medical history of hypertension, hyperlipidemia, diabetes, anomalous coronary artery, CAD who presents for follow-up. His last visit to our office was 09/23/2023. Today he reports he has been doing well over the last year. He has not had any hospitalizations, ER trips or changes to his health. He denies any chest discomfort at rest or with activity. No shortness of breath, PND, orthopnea or edema. No lightheadedness, palpitations, presyncope, syncope. 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 He reports compliance with his medications and now takes his statin as directed. [facility]END[facility] TO [facility] Medical History Other and unspecified hyperlipidemia Essential hypertension Type 2 diabetes mellitus with unspecified complications 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 Surgical History History of dental surgery Family History Father Hypertension Mother Hypertension Diabetes Social History Housing: Apartment Alcohol intake: never Patient Tobacco Use Status: Former Tobacco user Tobacco use type: Cigarette e-Cigarette/Vaping Use: Never Used Second Hand Smoke Exposure: No service: No Current occupational status: employed Cognitive needs: No Hearing needs: No Vision needs: Yes (glasses) Review of Systems Const All systems reviewed & are unremarkable except as noted in HPI and below ENT Denies dizziness Card Denies chest pain, Denies chest pain at rest, Denies chest pain with activity, Denies rapid heart rate, Denies pedal edema, Denies edema, Denies leg edema, Denies lightheadedness, Denies palpitations, Denies dyspnea, Denies dyspnea on exertion and Denies orthopnea Resp Denies cough, Denies dyspnea and Denies dyspnea on exertion GI Denies hematochezia and Denies change in stool character Musc Denies abnormal gait, Denies limited range of motion, Denies muscle cramps, Denies muscle weakness, Denies numbness, Denies radiating pain into limb, Denies stiffness and Denies tingling Neuro Denies abnormal gait, Denies dizziness, Denies numbness and Denies tingling Endo Denies palpitations Physical Exam Vital Signs: Last Vital Signs Pulse 81 09/20/24 08:13 BP 100/62 09/20/24 08:13 BMI result Body Mass Index 26.5 Const General: cooperative, healthy appearing, comfortable and no acute distress Orientation/consciousness: patient oriented x3 Neck Neck: Yes normal visual inspection and Yes no JVD Resp Effort & Inspection: normal respiratory effort Auscultation: clear to auscultation bilaterally, no crackles, no rales, no rhonchi and no wheezes Cardio Jugular venous distension: no JVD Rate: regular rate Rhythm: regular rhythm Heart sounds: S1 normal heart sound present, S2 normal heart sound present, no murmurs and no rubs Neuro General: patient oriented x3 Extrem General: Yes normal to inspection and No no pedal edema Psych Appearance: grossly normal Mental Status: mental status grossly normal Speech and movement: Normal speech and movement present Office Procedures EKG Details: today, read by me, SR, anteroseptal infarct, age undetermined, unchanged from last EKG 09/23/23, rate 81, QTc 425ms [id number], Complete Assessment & Plan Assessment & Plan (1) Anomalous origin of coronary artery: Code(s): Q24.5 - Malformation of coronary vessels Category: Medical Plan: Coronary CTA from 2019 with 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 No high-grade stenosis in the proximal or mid circumflex, but distal portion was small and hence not seen well. Otherwise, there was 50% narrowing after the takeoff of the acute marginal branch. No significant stenosis elsewhere. Echocardiogram from 2020 with normal LVEF, 55-60%, normal diastolic filling, no significant valvular pathology and normal pulmonary pressures. He has not had any anginal symptoms. He has cardiac risk factors of hypertension, hyperlipidemia and diabetes. He needs ongoing cardiac risk factor modification. His blood pressure is currently well controlled. Continue amlodipine and benazepril. Truxton LDL goal less than 70. Labs done 03/27/2024 had shown LDL 101. He is on rosuvastatin 10 mg daily and reports compliance. Will update his fasting lipid profile today and if LDL remains elevated will increase the dose of rosuvastatin. Hemoglobin A1c goal is less than 7. Labs done on 04/26/2024 showed hemoglobin A1c 6.2. Diabetes followed by his PCP. Signs and symptoms of angina reviewed with him. Continue physical activity as tolerated. Cardiology follow-up in 1 year, sooner if needed. (2) Atherosclerotic cardiovascular disease: Code(s): I25.10 - Atherosclerotic heart disease of [place] coronary artery without angina pectoris Category: Medical Plan: As above (3) Essential hypertension: Code(s): I10 - Essential (primary) hypertension Category: Medical Plan: As above. He does report some brief lightheadedness at times with quick position changes. If this symptoms continues he may need a reduction in his antihypertensive agent. Discussed maintaining good hydration. (4) Other and unspecified hyperlipidemia: Code(s): E78.5 - Hyperlipidemia, unspecified Category: Medical Plan: [place]xton LDL goal < 70 in pt with CAD and DM. Rechecking labs today. (5) Type 2 diabetes mellitus with unspecified complications: Code(s): E11.8 - Type 2 diabetes mellitus with unspecified complications Category: Medical Plan: As above Plan Time spent on chart review, documentation, interview and assessment Orders: Orders Comprehensive Met. Panel Today E78.5 - Hyperlipidemia, unspecified Lipid Panel Today E78.5 - Hyperlipidemia, unspecified Coding Level of Care Code Est Pt Level 4 (06190) Complex EM visit Add On G2211 Diagnoses Anomalous origin of coronary artery Q24.5 Atherosclerotic cardiovascular disease I25.10 Essential hypertension I10 Other and unspecified hyperlipidemia E78.5 Type 2 diabetes mellitus with unspecified complications E11.8 CPT Codes EKG - CPT: [id number], Complete ([id number]) Time Spent (min) 30
== END 2024-09-20 08:34 | disposition home or self-care (01) ==
PROVIDERS: PCP Internal Medicine; Visit Provider Nurse Practitioner Family
DX: Q24.5 Malformation of coronary vessels (principal); I25.10 Atherosclerotic heart disease of native coronary artery without angina pectoris; I10 Essential (primary) hypertension; E78.5 Hyperlipidemia, unspecified; E11.8 Type 2 diabetes mellitus with unspecified complications
CPT/HCPCS: 93010; 99214; G2211

== ENCOUNTER 2024-10-23 09:14 | Outpatient (REF) | payer OTHER, SELFPAY ==
--- OUTSIDE RECORDS SUMMARY | 2024-10-23 09:18 | XMS_ITS | Clinical Summary ---
Author Organization [place] [facility] Address [address] [place] [phone] Phone Care Team Providers Care Cell Biology Scientist Name Role Phone Burke ROBLES, [facility] Primary Care Provider [phone] [facility] Un[facility] [phone] Reason for Visit and Chief Complaint Established Patient Plan of Treatment Pending Tests Order Diagnosis Results Due Ordering P rovider Follow Up - Return to School / Work Note Conor Vera MD Last Documented On 4 10:50AM ; [facility] Follow Up - Appointment 1 Month Nondisp fx of shaft of fourth MC bone, left hand, init 12/01/23 Conor Vera MD Last Documented On 4 10:50AM ; [facility] Assessments Includes: Assessments from this encounter No Assessments Recorded Medical Equipment - Implanted Devices Includes: Current Devices No Medical Equipment Recorded Medications Includes: Medications discussed during this encounter and other current Medications Current Medications (continue as prescribed) motrin [MANUAL] Oral Tablet 12/01/2023 Provider: Diagnosis: Last Documented On 4 10:29AM By Aamir Morrow ; [facility] Medications Administered Includes: Administered Medications from this encounter No Administered Medications Recorded Vital Signs Includes: Vital Signs from this encounter Vital Name 12/01/2023 10:29A Blood Pressure Sitting (mmHg) 122/87 Pulse Rate-Sitting (bpm) 87 Temp-Temporal 97 Height (in) 71 Weight (lb) 185 Body Mass Index 25.8 Body Surface Area 2 Oxygen Saturation (%) 97 Last Documented: On 12/01/2023 10:29A M ; [facility] Results Includes: Results discussed during this encounter [...] Exam Of Hand, min 3 views (Left) [address] Nondisp fx of shaft of fourth MC bone, left hand, init Conor Vera MD [facility] 12/01/2023 Last Documented On 9:57AM ; [facility] Medical History Includes: Medical History addressed during [...] Time Diagnosis Established Patient Conor Vera MD [facility] 12/01/19 24 10:20AM 10:48AM Insurance Includes: Active Insurance Policies Plan Name Member ID Group # Subscriber Relationship Effect eliezer Dates 1 - [employer] [id number] Carlos Enrique Marquez Clinical Notes Includes: Clinical Notes from this encounter * Progress note Date Encounter Last Documented by 12/01/2023 Established Patient Bakari davis on 12/01/2023; 10:50 AM, Conor Vera MD; [facility] Current Medication - motrin [MANUAL] Oral Tablet [...] of his hand. 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 I gave him a note for return [...]
--- OUTSIDE RECORDS SUMMARY | 2024-10-23 09:18 | XMS_ITS | Clinical Summary ---
Author Organization [place] [facility] Address [address] [place] [phone] Phone Care Team Providers Care Compensation/Benefits Specialist Name Role Phone Burke ROBLES, [facility] Primary Care Provider [phone] [place] [facility] Un[facility] [phone] Reason for Visit and Chief Complaint Established [...] Exam Of Hand, min 3 views (Left) 42070 Nondisp fx of shaft of fourth MC bone, left hand, init Conor Vera MD [place] [facility] 12/29/2023 Last Documented On 4 9:49AM ; [place] [facility] Medical History Includes: Medical History addressed [...] Time Diagnosis Established Patient Conor Vera MD [place] [facility] 12/29/19 24 9:40AM 10:44AM Insurance Includes: Active Insurance Policies Plan Name Member ID Group # Subscriber Relationship Effect eliezer Dates 1 - [employer] [id number] Carlos Enrique Osman Self Clinical Notes Includes: Clinical Notes from this encounter * Progress note Date Encounter Last Documented by 12/29/2023 Established Patient Bakari davis on 12/29/2023; 10:28 AM, Conor Vera MD; [place] [facility] Current Medication - motrin [MANUAL] Oral [...] of his hand. 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
--- OUTSIDE RECORDS SUMMARY | 2024-10-23 09:18 | XMS_ITS | Clinical Summary ---
Author Organization [place] [facility] Address [address] [place] [phone] Phone Care Team Providers Care Jacquard Loom Weaver Name Role Phone Burke ROBLES, [facility] Primary Care Provider [phone] [place] [facility] Un[facility] [phone] Reason for Visit and Chief Complaint Established Patient Plan of Treatment Pending Tests Order Diagnosis Results Due Ordering P rovider Follow Up - Return to School / Work Note Conor Vera MD Last Documented On 4 8:55AM ; [facility] Follow Up - Appointment PRN Nondisp fx of shaft of fourth MC bone, left hand, init 03/02/24 Rosa Hurley PA-C Last Documented On 4 8:54AM ; [facility] Assessments Includes: Assessments from this encounter No Assessments Recorded Medical Equipment - Implanted Devices Includes: Current Devices No Medical Equipment Recorded Medications Includes: Medications discussed during this encounter and other current Medications Current Medications (continue as prescribed) motrin [MANUAL] Oral Tablet 12/01/2023 Provider: Diagnosis: Last Documented On 4 10:29AM By Aamir Morrow ; [facility] Medications Administered Includes: Administered Medications from this encounter No Administered Medications Recorded Vital Signs Includes: Vital Signs from this encounter Vital Name 03/02/2024 08:03A Blood Pressure Sitting (mmHg) 137/80 Pulse Rate-Sitting (bpm) 91 Temp-Temporal 96.8 Height (in) 71 Weight (lb) 190 Body Mass Index 26.5 Body Surface Area 2.1 Oxygen Saturation (%) 97 Last Documented: On 03/02/2024 8:03AM ; [facility] Results Includes: Results discussed during this [...] Time Diagnosis Established Patient Rosa Hurley PA-C [facility] 03/02/20 8:00AM 8:39AM Insurance Includes: Active Insurance Policies Plan Name Member ID Group # Subscriber Relationship Effect eliezer Dates 1 - [employer] [id number] Carlos Enrique Osman Self Clinical Notes Includes: Clinical Notes from this encounter * Progress note Date Encounter Last Documented by 03/02/2024 Established Patient Bakari davis on 03/02/2024; 8:55 AM, Rosa Hurley PA-C; [place] [facility], Reason For Visit Chief complaint: Follow-up left fourth metacarpal fracture Date of injury: 10/28/2023 History of Present Illness: Patient is a mnoww-cubx-hiitvwee 63-year-old male who sustained a fourth metacarpal [...] for the next couple of years before long term. 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 He has scheduled an appointment with [facility] as a second opinion as he [...]
--- OUTSIDE RECORDS SUMMARY | 2024-10-23 09:18 | XMS_ITS | Clinical Summary ---
Author Organization [facility] Address [address] [place] [address] Care Team Providers Care Processing Manager Name Role Phone Isabelle Turk MD Primary Care Provider [phone] Medical History Medical History Date Comments Essential hypertension DX:Essent ial hypertension Hyperlipidemia DX:Hyperlipidemi a Diabetes mellitus type 2, co ntrolled, with complications (CMS/HCC) DX:Diabetes mellitus type 2, controlled, with complications (HCC) Social History Tobacco Use Types Packs/Day Years Used Date Smoking Tobacco: Never Assessed Sex and Gender Information Value Date Recorded Sex Assigned at Not on file Gender Identity Not on file Sexual Orientation Not on file Obstetrics History Last Filed Vital Signs Vital Sign Reading Time Taken Comments Blood Pressure - - Pulse - - Temperature - - Respiratory Rate - - Oxygen Saturation - - Inhaled Oxygen Concentration - - Weight 86.2 kg (190 lb) 03/23/2024 11:41 AM EDT Height 180.3 cm (5' 11 ) 03/23/2024 11:41 AM EDT Body Mass Index 26.5 03/23/2024 11:41 AM EDT Plan of Treatment Health Maintenance Due Date Last Done Comments DTaP,Tdap,and Td Vaccines (1 - Tdap) 1978 Zoster Vaccines (1 of 2) 2009 Abdominal Aortic Aneurysm (A AA) Screen 04/13/2024 Cholesterol Screening (Lipid Panel) 04/13/2024 Colorectal Cancer Screening: Colonoscopy 04/13/2024 Depression Screening 04/13/2024 Hepatitis C Screening 04/13/2024 Social Influencers of Health Screening 04/13/2024 COVID-19 Vaccine (1 - 2023-2 5 season) 2024 Influenza Vaccine (#1) 2024 Falls Risk Assessment 2024 Pneumococcal Vaccine: 65+ Ye ars (1 of 1 - PCV) 2024 RSV Immunization Patients 60 + Years Old (1 - 1-dose 75+ series) 2034 HIB Vaccines Aged Out No longer eligi ble based on patient's age to complete this topic HPV Vaccines Aged Out No longer eligi ble based on patient's age to complete this topic Hepatitis A Vaccines Aged Out No long er eligible based on patient's age to complete this topic Hepatitis B Vaccines Aged Out No long er eligible based on patient's age to complete this topic IPV Vaccines Aged Out No longer eligi ble based on patient's age to complete this topic MMR Vaccines Aged Out No longer eligi ble based on patient's age to complete this topic Meningococcal ACWY Vaccine Aged Out N o longer eligible based on patient's age to complete this topic Pneumococcal Vaccine: Pediat rics (0 to 5 Years) and At-Risk Patients (6 to 64 Years) Aged Out No longer eligible b ased on patient's age to complete this topic RSV Immunization Patients Un sarah 20 months Aged Out No longer eligible b ased on patient's age to complete this topic Varicella Vaccines Aged Out No longer eligible based on patient's age to complete this topic Care Teams Processing Manager Relationship Specialty Start Date End Date Isabelle Turk MD [address] [place] [address] Dr Fields, [place]BY [id number] PCP - General 03/03/24
--- OUTSIDE RECORDS SUMMARY | 2024-10-23 09:18 | XMS_ITS ---
Care Plan - [facility] Created on: October 23, 2024 Carlos Enrique Osman : 1960 Sex: Male Author Organization [place] [facility] Address [address] [place] [phone] Phone Care Team Providers Care Post Manager Name Role Phone Burke ROBLES, Isabelle Primary Care Provider [phone] [facility] Unavailable [phone]
--- OUTSIDE RECORDS SUMMARY | 2024-10-23 09:18 | XMS_ITS ---
Author Organization [place] [facility] Address [address] [place] [phone] Phone Care Team Providers Care Harvester Operator Name Role Phone Isabelle Turk MD Primary Care Provider [phone] [place] [facility] Unavailable [phone] Plan of Treatment No Plan of Treatment Recorded Assessments Includes: Assessments for all patient encounters No Assessments Recorded Medical Equipment - Implanted Devices Includes: Current and historical Devices No Medical Equipment Recorded Medications Includes: Current and historical Medications Current Medications (continue as prescribed) motrin [MANUAL] Oral Tablet 12/01/2023 Provider: Diagnosis: Last Documented On 10:29AM By Aamir Morrow ; [facility] Medications Administered Includes: Administered Medications in patient's chart No Administered Medications Recorded Vital Signs Includes: Vital Signs from 10/23/2023 through 10/23/2024 Vital Name 03/02/2024 08:03A 02/03/2024 08:50A 12/29/2023 [...] 97 Last Documented: On 03/02/2024 8:03AM ; [facility] On 02/03/2024 8:50AM ; [facility] On 12/29/2023 10:12AM ; [facility], On 12/01/2023 10:29AM ; [facility], On 11/06/2023 10:10AM ; [facility], Vital Name 10/30/2023 09:38A Blood Pressure Sitting (mmHg) 153/85 Pulse Rate-Sitting (bpm) 86 Temp-Temporal 97.4 Height (in) 71 Weight (lb) 182 Body Mass Index 25.4 Body Surface Area 2 Oxygen Saturation (%) 97 Last Documented: On 10/30/2023 9:39AM ; [facility], Results Includes: Results from 10/23/2023 through 10/23/2024 No Results Recorded For Specified Dates History of Present Illness History of Present Illness not supported for this document type No History of Present Illness Recorded Social History No Social History Recorded - Smoking Status Unknown Procedures and Surgical History Includes: Procedures from 10/23/2023 through 10/23/2024 Procedures Code Diagnosis Performing Provider Service Location Service Date X-Ray Exam Of Hand, min 3 views (Left) 40465 Nondisp fx of shaft of fourth MC bone, left hand, init Yaa TAYLOR [facility], 02/03/2024 Last Documented On 4 8:46AM ; [facility], X-Ray Exam Of Hand, min 3 views (Left) 05159 Nondisp fx of shaft of fourth MC bone, left hand, init Conor Vera MD [facility], 12/29/2023 Last Documented On 4 9:49AM ; [facility], X-Ray Exam Of Hand, min 3 views (Left) 22452 Nondisp fx of shaft of fourth MC bone, left hand, inrenato Vera MD [facility], 12/01/2023 Last Documented On 4 9:57AM ; [facility], X-Ray Exam Of Hand, min 3 views (Left) 39097 Nondisp fx of shaft of fourth MC bone, left hand, inrenato Vera MD [facility], 11/06/2023 Last Documented On 4 10:03AM ; [facility] Medical History Includes: Medical History in [...] Physical Exam Recorded Encounters Includes: Encounters from 10/23/2023 through 10/23/2024 Encounter Provider Location Date Check-In Time Check-Out Time Diagnosis Established Patient [facility] 03/02/20 8:00AM 8:39AM Established Patient Yaa TAYLOR [facility] 02/03/20 9:40AM 9:08AM Established Patient Conor Vera MD [facility] 12/29/19 9:40AM 10:44AM Established Patient Conor Vera MD [facility] 12/01/19 10:20AM 10:48AM Established Patient Conor [facility] 11/06/19 9:40AM 10:15AM New Patient Conor Vera MD [facility], 10/30/19 9:20AM 9:47AM Insurance Includes: Active Insurance Policies Plan Name Member ID Group # Subscriber Relationship Effect eliezer Dates 1 - [employer] [id number] Carlos Enrique Osman Self Clinical Notes Includes: Signed Clinical Notes starting from 09/01/2022 * Progress note Date Encounter Last Documented by 03/02/2024 Established Patient Bakari davis on 03/02/2024; 8:55 AM, Rosa Hurley [facility]-C; [facility] Reason For Visit Chief complaint: Follow-up left fourth metacarpal fracture Date of injury: 10/28/2023 History of Present Illness: Patient is a inbsa-cbrj-ljujzasj 63-year-old male who sustained a fourth metacarpal [...] for the next couple of years before halfway. 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 He has scheduled an appointment with [facility] as a second opinion as he [...] ryan on 02/03/2024; 9:21 AM, Yaa TAYLOR; [facility], Current Medication - motrin [MANUAL] Oral Tablet [...] present illness: The patient is a 63-year-old gmfwd-afum-oymzusax male who sustained a fracture to his [...] taking Motrin infrequently. 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 Physical exam: No swelling, erythema or skin [...] In House X-Rays/X-Rays: Hand, left, 3 views ([id number]) EndCited * Progress note Date Encounter Last Documented by 12/29/2023 Established Patient Last documen ryan on 12/29/2023; 10:28 AM, Conor Vera MD; [facility], Current Medication - motrin [MANUAL] Oral Tablet [...] of his hand. 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 I gave him a note for return [...] on 11/06/2023; 10:13 AM, Conor Vera MD; [facility], Physical Findings - Vitals taken 11/06/2023 10:10 [...] in his hand. 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 Physical exam: The left hand has mild [...] on 10/30/2023; 9:46 AM, Conor Vera MD; [facility], Physical Findings - Vitals taken 10/30/2023 09:38 [...] numbness or tingling. 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 Physical exam: The ulnar gutter splint is removed from the left hand. There is moderate diffuse swelling of the hand. There is tenderness over the fourth metacarpal. Rotation of the digits is normal. Tendon function is normal. Skin is intact. The fingers are pink and warm with good capillary refill. Imaging: Radiographs of the left hand taken at [facility] on 10/28/2023 reviewed. There is a mildly [...]
--- OUTSIDE RECORDS SUMMARY | 2024-10-23 09:18 | XMS_ITS | Clinical Summary ---
Author Organization [place] [facility] Address [address] [place] [phone] Phone Care Team Providers Care Marine Engineering Teacher Name Role Phone Burke ROBLES, Isabelle Primary Care Provider [phone] [place] [facility] Unavailable [phone] Reason for Visit and Chief Complaint Established [...] Documented On 10:29AM By Aamir Morrow ; [place] [facility], Medications Administered Includes: Administered Medications from this [...] Relationship Effect eliezer Dates 1 - [employer] [id number] Carlos Enrique Jacqui Self Clinical Notes Includes: Clinical Notes from this encounter No Clinical Notes Recorded
[2024-10-23 09:33] LABS: MANUAL DIFF FLAG NO
[2024-10-23 10:36] LABS: Basophils Percent Auto 0.8 % (0-2); Eosinophils Absolute Auto 0.1 X10*3/uL (0.0-0.4); Eosinophils Percent Auto 2.4 % (0-4); Hematocrit 44.2 % (42.0-52.0); Hemoglobin 14.3 g/dl (14.0-18.0); Imm Gran Abs Auto 0.01 X10*3/uL (0.00-0.03); Imm Gran Pct Auto 0.2 % (0.0-0.4); Lymphocytes Absolute Auto 1.4 X10*3/uL (1.2-4.9); Lymphocytes Percent Auto 28.3 % (20-40); Mean Corpuscular HGB Conc 32.4 g/dl (31.0-36.0); Mean Corpuscular Hemoglobin 27.6 pg (27.0-33.0); Mean Corpuscular Volume 85.3 fL (80.0-98.0); Mean Platelet Volume 10.9 fL (9.4-12.4); Monocytes Absolute Auto 0.5 X10*3/uL (0.1-1.2); Monocytes Percent Auto 9.3 % (2-11); Neutrophils Absolute Auto 2.9 x10*3/uL (2.0-8.3); Platelet Count 213 X10*3/uL (160-400); Red Blood Count 5.18 X10*6/uL (4.60-5.80); Red Cell Distribution Width 14.5 % (11.0-16.0)
[2024-10-23 10:44] LABS: Estimated Average Glucose 117 mg/dL; Hemoglobin A1C 144.4049 umol/L; Hemoglobin A1c % 5.7 % (<6.0)
[2024-10-23 10:59] LABS: Creatinine Urine 153.68 mg/dL; Microalbum/Creatinine Ratio Ur 5.8 ug/mg cr (<30)
[2024-10-23 11:07] LABS: Alanine Aminotransferase 37 U/L (0-40); Albumin Level 4.5 g/dL (3.5-5.0); Alkaline Phosphatase 59 U/L (39-117); Anion Gap 10 (12-20); Aspartate Amino Transferase 29 U/L (5-37); Bilirubin Total 0.3 mg/dL (0.0-1.0); Blood Urea Nitrogen 17 mg/dL (9-16); Calcium 9.3 mg/dL (8.4-10.2); Carbon Dioxide 24 mmol/L (22-29); Chloride 110 mmol/L (96-108); Cholesterol 140 mg/dL (<200); Estimated Glomerular Filt Rate > 60; Glucose Fasting 116 mg/dL (60-99); HDL Cholesterol 42 mg/dL (>40); LDL Cholesterol Calculated 83 mg/dL (<100); Potassium 4.1 mmol/L (3.3-5.1); Sodium 140 mmol/L (135-145); Total Protein 7.7 g/dL (6.5-8.0); Triglycerides 76 mg/dL (<150)
[2024-10-23 11:19] LABS: Prostate Specific Antigen Scr 2.09 ng/mL (<0.05-4.0)
[2024-10-23 11:22] LABS: Thyroid Stimulating Hormone 0.76 uIU/mL (0.32-4.0)
== END 2024-10-23 09:15 | disposition home or self-care (01) ==
LOC: HO.LAB 09:14
PROVIDERS: PCP Internal Medicine; Referring Provider Nurse Practitioner Family; Visit Provider Internal Medicine
DX: Z00.00 Encounter for general adult medical examination without abnormal findings (principal); Z13.220 Encounter for screening for lipoid disorders; Z13.0 Encounter for screening for diseases of the blood and blood-forming organs and certain disorders involving the immune mechanism; Z13.29 Encounter for screening for other suspected endocrine disorder; E11.69 Type 2 diabetes mellitus with other specified complication; E66.01 Morbid (severe) obesity due to excess calories
CPT/HCPCS: 36415; 80053; 80061; 82043; 82570; 83036; 84153; 84443; 85025

== ENCOUNTER → 2024-10-25 08:41 | Outpatient (BNVA) | payer OTHER, SELFPAY | PROVIDERS: PCP Internal Medicine; Visit Provider Internal Medicine | DX: I10 Essential (primary) hypertension (principal) | CPT/HCPCS: 99212 ==

== ENCOUNTER 2024-10-25 08:48 | Outpatient (AMB) | payer OTHER, SELFPAY ==
--- NOTE | 2024-10-25 08:45 | A.OFFPC_ITS ---
Vital Signs 10/25/24 08:46 Height 5 ft 11 in Weight 189 lb BMI 26.4 BP 132/68 Blood Pressure Location Lt brachial Position Sitting Pulse 90 Pulse Source Pulse Oximeter Pulse Oximetry (%) 95 Oxygen Delivery Method Room Air Intake Visit Reasons: 6 Month F/U Accompanied by: Self / Same As Patient Allergies No Known Allergies [No Known Allergies*] Allergy (Verified 10/25/24 08:48) Medication List - Last Reconciled 10/25/24 by Indio Orr MD amlodipine-benazepril 10-20 mg 1 cap PO DAILY blood pressure monitor As directed metformin 500 mg PO DAILY rosuvastatin 20 mg PO DAILY sildenafil 100 mg PO Tobacco use date assessed: 10/25/24 Fall risk assessment: No Falls in past year Last assessed Fall Risk: 10/25/24 Dental Screening Dental Screen Date: 10/25/24 Did you have a dental visit in the last 12 months?: Yes Did you have a dental problem in the last 6 months where you did not have access to dental care?: No Was dental information given to patient?: Patient has dentist HPI 6 Month F/U HPI Details HTN on Rx; doing well; [facility] Medical History Other and unspecified hyperlipidemia Essential hypertension Type 2 diabetes mellitus 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 1. Little interest or pleasure in doing things: not at all 2. Feeling down, depressed, or hopeless: several days 3. Trouble falling or staying asleep, or sleeping too much: several days 4. Feeling tired or having little energy: several days 5. Poor appetite or overeating: not at all 6. Feeling bad about yourself - or that you are a failure or have let yourself or your family down: not at all 7. Trouble concentrating on things, such as reading the newspaper or watching television: not at all 8. Moving or speaking so slowly that other people could have noticed. Or the opposite - being so fidgety or restless that you have been moving around a lot more than usual: not at all 9. Thoughts that you would be better off or of hurting yourself in some way: not at all Total score: 3 Source: Developed by Drs. Carlos Enrique Medina, Chasity Lepe, Mohan Mann and colleagues, with an educational tucker from [employer]. Thrive Questionnaire Date Thrive assessed: 10/25/24 I am a: Patient What is your living situation today?: I have a steady place to live Within the past 12 months, did the food you bought not last and you didn't have the money to get more?: Never true Within the past 12 months, did you worry whether your food would run out before you got money to buy more?: Never true Do you have trouble paying for medicines?: No Do you have trouble getting transportation to medical appointments?: No Do you have trouble paying your heating and electricity bill?: No Do you have trouble taking care of your child, family member or friend?: No Do you have trouble with day-to-day activities such as bathing, preparing meals, shopping, managing finances, etc.?: No Are you currently unemployed and looking for a job?: No Are you interested in more education?: No Please select the resources that you would like help with: None Currently or been in a relationship where the following occur: No concerns reported THRIVE Score: 0 AUDIT C Alcohol Use Questionnaire (AUDIT-C) 1. How often do you have a drink containing alcohol?: Never Total Score: 0 JESUS-7 AMB Questionnaire JESUS-7 Date JESUS - 7 assessed: 10/25/24 Feeling nervous, anxious, or on edge: 0 = Not at all Not being able to stop or control worryin = Not at all Worrying too much about different things: 0 = Not at all Trouble relaxin = Not at all Being so restless that it is hard to sit still: 0 = Not at all Becoming easily annoyed or irritable: 0 = Not at all Feeling afraid as if something awful might happen: 0 = Not at all Total JESUS-7 score (0-4 normal; 5-9 mild; 10-14 moderate; 15-21 severe): 0 Source: Developed by Drs. Carlos Enrique Medina, Chasity Lepe, Mohan Mann and colleagues, with an educational tucker from [employer]. Review of Systems Const Denies chills, Denies headache(s) and Denies weight loss ENT Denies headache(s) Card Denies chest pain, Denies syncope, Denies irregular heart rhythm and Denies dyspnea Resp Denies chest congestion, Denies cough and Denies dyspnea GI Denies abdominal pain, Denies change in stool character, Denies nausea and Denies vomiting Musc Denies deformity and Denies joint swelling Neuro Denies syncope and Denies headache(s) Physical exam (Primary Care) Vital Signs: Last Vital Signs Pulse 90 10/25/24 08:46 BP 132/68 10/25/24 08:46 Pulse Ox 95 10/25/24 08:46 Oxygen Delivery Method Room Air 10/25/24 08:46 BMI result Body Mass Index 26.4 Tobacco/Smoking Status: Tobacco use Status Tobacco use date assessed 10/25/24 10/25/24 08:51 Patient Tobacco Use Status Former Tobacco user 10/25/24 08:51 Tobacco use type Cigarette 10/25/24 08:51 e-Cigarette/Vaping Use Never Used 10/25/24 08:51 PHQ-9: PHQ-9 Score PHQ-9: Total score 3 10/25/24 08:51 Thrive Assessment: Date of Thrive Assessment Date Thrive assessed 10/25/24 10/25/24 08:51 Currently or been in a relationship where the following occur: No concerns reported Const General: cooperative, comfortable, no acute distress and alert Neck Neck: Yes no lymphadenopathy Thyroid: Thyroid normal Resp Effort & Inspection: normal respiratory effort Auscultation: clear to auscultation bilaterally Percussion: percussion normal Cardio Jugular venous distension: no JVD Palpation: normal PMI Rate: regular rate Rhythm: regular rhythm Heart sounds: S1 normal heart sound present and S2 normal heart sound present GI Inspection: Yes normal to inspection Palpation (GI): No hepatosplenomegaly present Skin General skin exam: no rashes or lesions noted Extrem General: Yes no clubbing, cyanosis or edema Coding Level of Care Code Est Pt Level 3 (42133) Diagnoses Essential hypertension I10 Assessment & Plan Assessment & Plan (1) Essential hypertension: Code(s): I10 - Essential (primary) hypertension Category: Medical Plan: stable; same rx
[2024-10-25 08:46] VITALS: BP 132/68; PULSE 90; O2SAT 95; BMI 26.4
--- OUTSIDE RECORDS SUMMARY | 2024-10-25 08:54 | XMS_ITS | Clinical Summary ---
Author Organization [facility] Address [address] [place] [phone] Phone Care Team Providers Care Bioassayist Name Role Phone Burke ROBLES, [facility] Primary Care Provider [phone] [facility] [phone] Reason for Visit and Chief Complaint Established Patient Plan of Treatment Pending Tests Order Diagnosis Results Due Ordering P rovider Follow Up - Return to School / Work Note Conor Vera MD Last Documented On 4 10:50AM ; [facility] Follow Up - Appointment 1 Month Nondisp fx of shaft of fourth MC bone, left hand, init 12/01/23 Conor Vera MD Last Documented On 4 10:50AM ; [facility] Assessments Includes: Assessments from this encounter No Assessments Recorded Medical Equipment - Implanted Devices Includes: Current Devices No Medical Equipment Recorded Medications Includes: Medications discussed during this encounter and other current Medications Current Medications (continue as prescribed) motrin [MANUAL] Oral Tablet 12/01/2023 Provider: Diagnosis: Last Documented On 4 10:29AM By Aamir Morrow ; [facility] Medications Administered Includes: Administered Medications from this encounter No Administered Medications Recorded Vital Signs Includes: Vital Signs from this encounter Vital Name 12/01/2023 10:29A Blood Pressure Sitting (mmHg) 122/87 Pulse Rate-Sitting (bpm) 87 Temp-Temporal 97 Height (in) 71 Weight (lb) 185 Body Mass Index 25.8 Body Surface Area 2 Oxygen Saturation (%) 97 Last Documented: On 12/01/2023 10:29A M ; [facility] Results Includes: Results discussed during this [...] Exam Of Hand, min 3 views (Left) [id number] Nondisp fx of shaft of fourth MC bone, left hand, init Conor Vera MD [facility] 12/01/2023 Last Documented On 9:57AM ; [facility] Medical History Includes: Medical History addressed [...] Time Diagnosis Established Patient Conor Vera MD [facility] 12/01/19 24 10:20AM 10:48AM Insurance Includes: Active Insurance Policies Plan Name Member ID Group # Subscriber Relationship Effect eliezer Dates 1 - [employer] [id number] Carlos Enrique Marquez Clinical Notes Includes: Clinical Notes from this encounter * Progress note Date Encounter Last Documented by 12/01/2023 Established Patient Bakari davis on 12/01/2023; 10:50 AM, Conor Vera MD; [facility] Current Medication - motrin [MANUAL] Oral [...] his hand. 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 I gave him a note [...]
--- OUTSIDE RECORDS SUMMARY | 2024-10-25 08:54 | XMS_ITS | Clinical Summary ---
Author Organization [facility] Address [address] [place] [phone] Phone Care Team Providers Care Telecommunications Engineer Name Role Phone Burke ROBLES, Isabelle Primary Care Provider [phone] [facility] [phone] Reason for Visit and Chief Complaint Established Patient Plan of Treatment Pending Tests Order Diagnosis Results Due Ordering P rovider Follow Up - Appointment 1 Month Nondisp fx of shaft of fourth MC bone, left hand, init 02/03/24 Yaa TAYLOR Last Documented On 4 9:21AM ; [facility] - X-Rays Hand, left, 3 views ([id number]) Nondisp fx of shaft of fourth MC bone, left hand, init 02/05/24 Yaa TAYLOR Last Documented On 4 9:21AM ; [facility] [place] Assessments Includes: Assessments from this encounter No Assessments Recorded Medical Equipment - Implanted Devices Includes: Current Devices No Medical Equipment Recorded Medications Includes: Medications discussed during this encounter and other current Medications Current Medications (continue as prescribed) motrin [MANUAL] Oral Tablet 12/01/2023 Provider: Diagnosis: Last Documented On 4 10:29AM By Aamir Morrow ; [facility] [place] Medications Administered Includes: Administered Medications from this encounter No Administered Medications Recorded Vital Signs Includes: Vital Signs from this encounter Vital Name 02/03/2024 08:50A Blood Pressure Sitting (mmHg) 116/80 Pulse Rate-Sitting (bpm) 80 Temp-Temporal 96.9 Height (in) 71 Weight (lb) 187 Body Mass Index 26.1 Body Surface Area 2 Oxygen Saturation (%) 97 Last Documented: On 02/03/2024 8:50AM ; [facility] [place] Results Includes: Results discussed during this encounter [...] Exam Of Hand, min 3 views (Left) [id number] Nondisp fx of shaft of fourth MC bone, left hand, init [facility]aa [facility] 02/03/2024 Last Documented On 4 8:46AM ; [facility] Medical History Includes: Medical History addressed [...] Check-Out Time Diagnosis Established Patient Yaa TAYLOR [facility] 02/03/20 24 9:40AM 9:08AM Insurance Includes: Active Insurance Policies Plan Name Member ID Group # Subscriber Relationship Effect eliezer Dates 1 - [employer] [id number] Carlos Enrique Osman Self Clinical Notes Includes: Clinical Notes from this encounter * Progress note Date Encounter Last Documented by 02/03/2024 Established Patient Bakari davis on 02/03/2024; 9:21 AM, Yaa TAYLOR; [facility] Current Medication - motrin [MANUAL] Oral [...] present illness: The patient is a 63-year-old [id number] male who sustained a fracture to his [...] taking Motrin infrequently. 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 Physical exam: No swelling, erythema or skin [...] In House X-Rays/X-Rays: Hand, left, 3 views ([id number]) EndCited
--- OUTSIDE RECORDS SUMMARY | 2024-10-25 08:54 | XMS_ITS | Clinical Summary ---
Author Organization [facility] Address [address] [place] [phone] Phone Care Team Providers Care Dope Pourer Name Role Phone Burke ROBLES, [facility] Primary Care Provider [phone] [facility] Un[facility] [phone] Reason for Visit and Chief Complaint Established Patient Plan of Treatment Pending Tests Order Diagnosis Results Due Ordering P rovider Follow Up - Return to School / Work Note Conor Vera MD Last Documented On 4 8:55AM ; [facility] Follow Up - Appointment PRN Nondisp fx of shaft of fourth MC bone, left hand, init 03/02/24 Rosa Hurley PA-C Last Documented On 4 8:54AM ; [facility] Assessments Includes: Assessments from this encounter No Assessments Recorded Medical Equipment - Implanted Devices Includes: Current Devices No Medical Equipment Recorded Medications Includes: Medications discussed during this encounter and other current Medications Current Medications (continue as prescribed) motrin [MANUAL] Oral Tablet 12/01/2023 Provider: Diagnosis: Last Documented On 4 10:29AM By Aamir Morrow ; [facility] Medications Administered Includes: Administered Medications from this encounter No Administered Medications Recorded Vital Signs Includes: Vital Signs from this encounter Vital Name 03/02/2024 08:03A Blood Pressure Sitting (mmHg) 137/80 Pulse Rate-Sitting (bpm) 91 Temp-Temporal 96.8 Height (in) 71 Weight (lb) 190 Body Mass Index 26.5 Body Surface Area 2.1 Oxygen Saturation (%) 97 Last Documented: On 03/02/2024 8:03AM ; [facility] Results Includes: Results discussed during this encounter [...] Time Diagnosis Established Patient Rosa Hurley PA-C [facility] 03/02/20 8:00AM 8:39AM Insurance Includes: Active Insurance Policies Plan Name Member ID Group # Subscriber Relationship Effect eliezer Dates 1 - [employer] [id number] Carlos Enrique Osman Self Clinical Notes Includes: Clinical Notes from this encounter * Progress note Date Encounter Last Documented by 03/02/2024 Established Patient Bakari davis on 03/02/2024; 8:55 AM, Rosa Hurley PA-C; [facility], Reason For Visit Chief complaint: Follow-up left fourth metacarpal fracture Date of injury: 10/28/2023 History of Present Illness: Patient is a awcxu-mvqk-hrxtdjft 63-year-old male who sustained a fourth metacarpal [...] for the next couple of years before assisted. 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 He has scheduled an appointment with [place] [facility] as a second opinion as he [...]
--- OUTSIDE RECORDS SUMMARY | 2024-10-25 08:55 | XMS_ITS | Clinical Summary ---
Author Organization [facility] Address [address] [place] [phone] Phone Care Team Providers Care Parts Counter Specialist Name Role Phone Burke ROBLES, [facility] Primary Care Provider [phone] [facility] [phone] Reason for Visit and Chief Complaint Established Patient Plan of Treatment Pending Tests Order Diagnosis Results Due Ordering P rovider Follow Up - Appointment 1 Month Nondisp fx of shaft of fourth MC bone, left hand, init 12/29/23 Conor Vera MD Last Documented On 4 10:28AM ; [facility] Assessments Includes: Assessments from this encounter No Assessments Recorded Medical Equipment - Implanted Devices Includes: Current Devices No Medical Equipment Recorded Medications Includes: Medications discussed during this encounter and other current Medications Current Medications (continue as prescribed) motrin [MANUAL] Oral Tablet 12/01/2023 Provider: Diagnosis: Last Documented On 4 10:29AM By Aamir Morrow ; [facility] Medications Administered Includes: Administered Medications from this encounter No Administered Medications Recorded Vital Signs Includes: Vital Signs from this encounter Vital Name 12/29/2023 10:12A Blood Pressure Sitting (mmHg) 135/75 Pulse Rate-Sitting (bpm) 84 Temp-Temporal 97 Height (in) 71 Weight (lb) 185 Body Mass Index 25.8 Body Surface Area 2 Oxygen Saturation (%) 96 Last Documented: On 12/29/2023 10:12A M ; [facility] Results Includes: Results discussed during this encounter [...] Exam Of Hand, min 3 views (Left) [id number] Nondisp fx of shaft of fourth MC bone, left hand, init Conor Vera MD [facility] 12/29/2023 Last Documented On 4 9:49AM ; [facility] Medical History Includes: Medical History addressed [...] Time Diagnosis Established Patient [facility]19 24 9:40AM 10:44AM Insurance Includes: Active Insurance Policies Plan Name Member ID Group # Subscriber Relationship Effect eliezer Dates 1 - [employer] [id number] Carlos Enrique Osman Self Clinical Notes Includes: Clinical Notes from this encounter * Progress note Date Encounter Last Documented by 12/29/2023 Established Patient Bakari davis on 12/29/2023; 10:28 AM, Conor Vera MD; [facility] Current Medication - motrin [MANUAL] Oral [...] of his hand. 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
--- OUTSIDE RECORDS SUMMARY | 2024-10-25 08:55 | XMS_ITS ---
Author Organization [facility] Address [address] [place] [phone] Phone Care Team Providers Care Cold Mill Operator Name Role Phone Isabelle Turk MD Primary Care Provider [phone] [facility] Unavailable [phone] Plan of Treatment No Plan of Treatment Recorded Assessments Includes: Assessments for all patient encounters No Assessments Recorded Medical Equipment - Implanted Devices Includes: Current and historical Devices No Medical Equipment Recorded Medications Includes: Current and historical Medications Current Medications (continue as prescribed) motrin [MANUAL] Oral Tablet 12/01/2023 Provider: Diagnosis: Last Documented On 10:29AM By Aamir Morrow ; [facility] Medications Administered Includes: Administered Medications in patient's chart No Administered Medications Recorded Vital Signs Includes: Vital Signs from 10/25/2023 through 10/25/2024 Vital Name 03/02/2024 08:03A 02/03/2024 08:50A 12/29/2023 [...] 97 Last Documented: On 03/02/2024 8:03AM ; [facility] On 02/03/2024 8:50AM ; [facility] On 12/29/2023 10:12AM ; [facility], On 12/01/2023 10:29AM ; [facility], On 11/06/2023 10:10AM ; [facility], Vital Name 10/30/2023 09:38A Blood Pressure Sitting (mmHg) 153/85 Pulse Rate-Sitting (bpm) 86 Temp-Temporal 97.4 Height (in) 71 Weight (lb) 182 Body Mass Index 25.4 Body Surface Area 2 Oxygen Saturation (%) 97 Last Documented: On 10/30/2023 9:39AM ; [facility], Results Includes: Results from 10/25/2023 through 10/25/2024 No Results Recorded For Specified Dates History of Present Illness History of Present Illness not supported for this document type No History of Present Illness Recorded Social History No Social History Recorded - Smoking Status Unknown Procedures and Surgical History Includes: Procedures from 10/25/2023 through 10/25/2024 Procedures Code Diagnosis Performing Provider Service Location Service Date X-Ray Exam Of Hand, min 3 views (Left) 76023 Nondisp fx of shaft of fourth MC bone, left hand, init Yaa TAYLOR [facility], 02/03/2024 Last Documented On 4 8:46AM ; [facility], X-Ray Exam Of Hand, min 3 views (Left) [address] Nondisp fx of shaft of fourth MC bone, left hand, init Conor Vera MD [facility], 12/29/2023 Last Documented On 4 9:49AM ; [facility], X-Ray Exam Of Hand, min 3 views (Left) 78436 Nondisp fx of shaft of fourth MC bone, left hand, inrenato Vera MD [facility], 12/01/2023 Last Documented On 4 9:57AM ; [facility], X-Ray Exam Of Hand, min 3 views (Left) 66138 Nondisp fx of shaft of fourth MC bone, left hand, inrenato Vera MD [facility], 11/06/2023 Last Documented On 4 10:03AM ; [facility] Medical History Includes: Medical History in [...] Physical Exam Recorded Encounters Includes: Encounters from 10/25/2023 through 10/25/2024 Encounter Provider Location Date Check-In Time Check-Out Time Diagnosis Established Patient [facility] 03[facility]02/20 8:00AM 8:39AM Established Patient Yaa TAYLOR [facility] 02/03/20 9:40AM 9:08AM Established Patient Conor Vera MD [facility] 12/29/19 9:40AM 10:44AM Established Patient Conor Vera MD [facility] 12/01/19 10:20AM 10:48AM Established Patient Conor [facility] 11/06/19 9:40AM 10:15AM New Patient Conor Vera MD [facility], 10/30/19 9:20AM 9:47AM Insurance Includes: Active Insurance Policies Plan Name Member ID Group # Subscriber Relationship Effect eliezer Dates 1 - [employer] [id number] Carlos Enrique Osman Self Clinical Notes Includes: Signed Clinical Notes starting from 09/01/2022 * Progress note Date Encounter Last Documented by 03/02/2024 Established Patient Bakari davis on 03/02/2024; 8:55 AM, Rosa Hurley [facility]-C; [facility] Reason For Visit Chief complaint: Follow-up left fourth metacarpal fracture Date of injury: 10/28/2023 History of Present Illness: Patient is a vgime-uskr-sgsaulyw 63-year-old male who sustained a fourth metacarpal [...] for the next couple of years before chcf. 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 He has scheduled an appointment with [facility] as a second opinion as he [...] ryan on 02/03/2024; 9:21 AM, Yaa TAYLOR; [facility], Current Medication - motrin [MANUAL] Oral Tablet [...] present illness: The patient is a 63-year-old quuts-jjrv-aavtribs male who sustained a fracture to his [...] taking Motrin infrequently. 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 Physical exam: No swelling, erythema or [...] In House X-Rays/X-Rays: Hand, left, 3 views ([id number]) EndCited * Progress note Date Encounter Last Documented by 12/29/2023 Established Patient Last documen ryan on 12/29/2023; 10:28 AM, Conor Vera MD; [facility], Current Medication - motrin [MANUAL] Oral [...] on 12/01/2023; 10:50 AM, Conor Vera MD; [facility] Current Medication - motrin [...] works as a parking line painter. I gave him a note for [...] on 11/06/2023; 10:13 AM, Conor Vera MD; [facility], Physical Findings - Vitals taken 11/06/2023 [...] in his hand. 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 Physical exam: The left hand has mild [...] on 10/30/2023; 9:46 AM, Conor Vera MD; [facility], Physical Findings - Vitals taken 10/30/2023 [...] numbness or tingling. 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 Physical exam: The ulnar gutter splint is removed from the left hand. There is moderate diffuse swelling of the hand. There is tenderness over the fourth metacarpal. Rotation of the digits is normal. Tendon function is normal. Skin is intact. The fingers are pink and warm with good capillary refill. Imaging: Radiographs of the left hand taken at [facility] on 10/28/2023 reviewed. There is a mildly [...]
--- OUTSIDE RECORDS SUMMARY | 2024-10-25 08:55 | XMS_ITS | Clinical Summary ---
Author Organization [facility] Address [address] [place] [phone] Phone Care Team Providers Care Contact Lens Blocker Name Role Phone Burke ROBLES, Isabelle Primary Care Provider [phone] [facility] Unavailable [phone] Reason for Visit and Chief Complaint Established [...] Documented On 10:29AM By Aamir Morrow ; [facility], Medications Administered Includes: Administered Medications from [...] Relationship Effect eliezer Dates 1 - [employer] [id number] Carlos Enrique Jacqui Self Clinical Notes Includes: Clinical Notes from this encounter No Clinical Notes Recorded
--- OUTSIDE RECORDS SUMMARY | 2024-10-25 08:56 | XMS_ITS ---
Care Plan - [facility] Created on: October 25, 2024 Carlos Enrique Osman : 1960 Sex: Male Author Organization [facility] Address [address] [place] [phone] Phone Care Team Providers Care Unhairing Inspector Name Role Phone Burke ROBLES, Isabelle Primary Care Provider [phone] [facility] Unavailable [phone]
--- OUTSIDE RECORDS SUMMARY | 2024-10-25 08:56 | XMS_ITS | Clinical Summary ---
Author Organization [facility] Address [address] [place] [address] Care Team Providers Care Vineyard Worker Name Role Phone Isabelle Turk MD Primary Care Provider [phone] Medical History Medical History Date Comments Essential [...] age to complete this topic Care Teams Vineyard Worker Relationship Specialty Start Date End Date Isabelle Turk MD [address] [place] [address] Dr Fields, RUBY [address] PCP - General 03/03/24
--- OUTSIDE RECORDS SUMMARY | 2024-10-25 09:04 | XMS_ITS | Clinical Summary ---
Author Organization [facility] Address [address] [place] [phone] Phone Care Team Providers Care Laminating Machine Tender Name Role Phone Burke ROBLES, [facility] Primary Care Provider [phone] [facility] Un[facility] [phone] Reason for Visit and Chief Complaint Established Patient Plan of Treatment Pending Tests Order Diagnosis Results Due Ordering P rovider Follow Up - Appointment 1 Month Nondisp fx of shaft of fourth MC bone, left hand, init 12/29/23 Conor Vera MD Last Documented On 4 10:28AM ; [facility] Assessments Includes: Assessments from this encounter No Assessments Recorded Medical Equipment - Implanted Devices Includes: Current Devices No Medical Equipment Recorded Medications Includes: Medications discussed during this encounter and other current Medications Current Medications (continue as prescribed) motrin [MANUAL] Oral Tablet 12/01/2023 Provider: Diagnosis: Last Documented On 4 10:29AM By Aamir Morrow ; [facility] Medications Administered Includes: Administered Medications from this encounter No Administered Medications Recorded Vital Signs Includes: Vital Signs from this encounter Vital Name 12/29/2023 10:12A Blood Pressure Sitting (mmHg) 135/75 Pulse Rate-Sitting (bpm) 84 Temp-Temporal 97 Height (in) 71 Weight (lb) 185 Body Mass Index 25.8 Body Surface Area 2 Oxygen Saturation (%) 96 Last Documented: On 12/29/2023 10:12A M ; [facility] Results Includes: Results discussed during this encounter [...] Exam Of Hand, min 3 views (Left) 62093 Nondisp fx of shaft of fourth MC bone, left hand, init Conor Vera MD [facility] 12/29/2023 Last Documented On 4 9:49AM ; [facility] Medical History Includes: Medical History addressed [...] Time Diagnosis Established Patient [facility] 12/29/19 24 9:40AM 10:44AM Insurance Includes: Active Insurance Policies Plan Name Member ID Group # Subscriber Relationship Effect eliezer Dates 1 - [employer] [id number] Carlos Enrique Osman Self Clinical Notes Includes: Clinical Notes from this encounter * Progress note Date Encounter Last Documented by 12/29/2023 Established Patient Bakari davis on 12/29/2023; 10:28 AM, Conor Vera MD; [facility] Current Medication - motrin [MANUAL] Oral [...] of his hand. 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
--- OUTSIDE RECORDS SUMMARY | 2024-10-25 09:04 | XMS_ITS | Clinical Summary ---
Author Organization [facility] Address [address] [place] [phone] Phone Care Team Providers Care Automation Engineer Name Role Phone Burke ROBLES, [place] [place] [place] [facility] Primary Care Provider [phone] [facility] Un[facility] [phone] Reason for Visit and Chief Complaint Established Patient Plan of Treatment Pending Tests Order Diagnosis Results Due Ordering P rovider Follow Up - Return to School / Work Note Conor Vera MD Last Documented On 4 10:50AM ; [facility] Follow Up - Appointment 1 Month Nondisp fx of shaft of fourth MC bone, left hand, init 12/01/23 Conor Vera MD Last Documented On 4 10:50AM ; [facility] Assessments Includes: Assessments from this encounter No Assessments Recorded Medical Equipment - Implanted Devices Includes: Current Devices No Medical Equipment Recorded Medications Includes: Medications discussed during this encounter and other current Medications Current Medications (continue as prescribed) motrin [MANUAL] Oral Tablet 12/01/2023 Provider: Diagnosis: Last Documented On 4 10:29AM By Aamir Morrow ; [facility] Medications Administered Includes: Administered Medications from this encounter No Administered Medications Recorded Vital Signs Includes: Vital Signs from this encounter Vital Name 12/01/2023 10:29A Blood Pressure Sitting (mmHg) 122/87 Pulse Rate-Sitting (bpm) 87 Temp-Temporal 97 Height (in) 71 Weight (lb) 185 Body Mass Index 25.8 Body Surface Area 2 Oxygen Saturation (%) 97 Last Documented: On 12/01/2023 10:29A M ; [facility] Results Includes: Results discussed during [...] Exam Of Hand, min 3 views (Left) 13090 Nondisp fx of shaft of fourth MC bone, left hand, init Conor [facility] MD [facility] 12/01/2023 Last Documented On 9:57AM ; [facility] Medical History Includes: Medical History addressed [...] Time Diagnosis Established Patient Conor Vera MD [facility] 12/01/19 24 10:20AM 10:48AM Insurance Includes: Active Insurance Policies Plan Name Member ID Group # Subscriber Relationship Effect eliezer Dates 1 - [employer] [id number] Carlos Enrique Marquez Clinical Notes Includes: Clinical Notes from this encounter * Progress note Date Encounter Last Documented by 12/01/2023 Established Patient Bakari davis on 12/01/2023; 10:50 AM, Conor Vera MD; [facility] Current Medication - motrin [MANUAL] Oral [...] his hand. 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 I gave him a note for return [...]
--- OUTSIDE RECORDS SUMMARY | 2024-10-25 09:04 | XMS_ITS ---
Author Organization [facility] Address [address] [place] [phone] Phone Care Team Providers Care Animal Groomer Name Role Phone Isabelle Turk MD Primary Care Provider [phone] [facility] Unavailable [phone] Plan of Treatment No Plan of Treatment Recorded Assessments Includes: Assessments for all patient encounters No Assessments Recorded Medical Equipment - Implanted Devices Includes: Current and historical Devices No Medical Equipment Recorded Medications Includes: Current and historical Medications Current Medications (continue as prescribed) motrin [MANUAL] Oral Tablet 12/01/2023 Provider: Diagnosis: Last Documented On 10:29AM By Aamir Morrow ; [facility] Medications Administered Includes: Administered Medications in [...] 97 Last Documented: On 03/02/2024 8:03AM ; [facility] On 02/03/2024 8:50AM ; [facility] On 12/29/2023 10:12AM ; [facility], On 12/01/2023 10:29AM ; [facility], On 11/06/2023 10:10AM ; [facility], Vital Name 10/30/2023 09:38A Blood Pressure Sitting (mmHg) 153/85 Pulse Rate-Sitting (bpm) 86 Temp-Temporal 97.4 Height (in) 71 Weight (lb) 182 Body Mass Index 25.4 Body Surface Area 2 Oxygen Saturation (%) 97 Last Documented: On 10/30/2023 9:39AM ; [facility], Results Includes: Results from 10/25/2023 through [...] Exam Of Hand, min 3 views (Left) 12513 Nondisp fx of shaft of fourth MC bone, left hand, init Yaa TAYLOR [facility], 02/03/2024 Last Documented On 4 8:46AM ; [facility], X-Ray Exam Of Hand, min 3 views (Left) 99456 Nondisp fx of shaft of fourth MC bone, left hand, init Conor Vera MD [facility], 12/29/2023 Last Documented On 4 9:49AM ; [facility], X-Ray Exam Of Hand, min 3 views (Left) 59469 Nondisp fx of shaft of fourth MC bone, left hand, inrenato Vera MD [facility], 12/01/2023 Last Documented On 4 9:57AM ; [facility], X-Ray Exam Of Hand, min 3 views (Left) 75358 Nondisp fx of shaft of fourth MC bone, left hand, inrenato Vera MD [facility], 11/06/2023 Last Documented On 4 10:03AM ; [facility] History Includes: Medical History in patient's [...] Time Diagnosis Established Patient Rosa Hurley PA-C [facility] 03/02/20 8:00AM 8:39AM Established Patient Yaa TAYLOR [facility] 02/03/20 9:40AM 9:08AM Established Patient Conor Vera MD [facility] 12/29/19 9:40AM 10:44AM Established Patient Conor Vera MD [facility] 12/01/19 10:20AM 10:48AM Established Patient Conor Vera MD [facility] 11/06/19 9:40AM 10:15AM New Patient Conor Vera MD [facility], 10/30/19 9:20AM 9:47AM Insurance Includes: Active Insurance Policies Plan Name Member ID Group # Subscriber Relationship Effect eliezer Dates 1 - [employer] [id number] Carlos Enrique Osman Self Clinical Notes Includes: Signed Clinical Notes starting from 09/01/2022 * Progress note Date Encounter Last Documented by 03/02/2024 Established Patient Bakari davis on 03/02/2024; 8:55 AM, Rosa Hurley PA-C; [facility] Reason For Visit Chief complaint: Follow-up left fourth metacarpal fracture Date of injury: 10/28/2023 History of Present Illness: Patient is a vbouk-bufx-sxcyiuge 63-year-old male who sustained a fourth metacarpal [...] years before halfway. 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 He has scheduled an appointment with [facility] as a second opinion as he [...] ryan on 02/03/2024; 9:21 AM, Yaa TAYLOR; [facility], Current Medication - motrin [MANUAL] Oral Tablet [...] present illness: The patient is a 63-year-old ilemf-pajz-gilsupsw male who sustained a fracture to his [...] taking Motrin infrequently. 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 Physical exam: No swelling, erythema or [...] In House X-Rays/X-Rays: Hand, left, 3 views ([id number]) EndCited * Progress note Date Encounter Last Documented by 12/29/2023 Established Patient Last documen ryan on 12/29/2023; 10:28 AM, Conor Vera MD; [facility], Current Medication - motrin [MANUAL] Oral [...] of his hand. 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 I gave him a note for [...] on 11/06/2023; 10:13 AM, Conor Vera MD; [facility], Physical Findings - Vitals taken 11/06/2023 [...] in his hand. 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 Physical exam: The left hand has [...] on 10/30/2023; 9:46 AM, Conor Vera MD; [facility], Physical Findings - Vitals taken 10/30/2023 [...] numbness or tingling. 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 Physical exam: The ulnar gutter splint is removed from the left hand. There is moderate diffuse swelling of the hand. There is tenderness over the fourth metacarpal. Rotation of the digits is normal. Tendon function is normal. Skin is intact. The fingers are pink and warm with good capillary refill. Imaging: Radiographs of the left hand taken at [facility] on 10/28/2023 reviewed. There is a [...]
--- OUTSIDE RECORDS SUMMARY | 2024-10-25 09:04 | XMS_ITS | Clinical Summary ---
Author Organization [facility] Address [address] [place] [phone] Phone Care Team Providers Care Zinc Plater Name Role Phone Burke ROBLES, [facility] Primary Care Provider [phone] [facility] Un[facility] [phone] Reason for Visit and Chief Complaint Established Patient Plan of Treatment Pending Tests Order Diagnosis Results Due Ordering P rovider Follow Up - Return to School / Work Note Conor Vera MD Last Documented On 4 8:55AM ; [facility] Follow Up - Appointment PRN Nondisp fx of shaft of fourth MC bone, left hand, init 03/02/24 Rosa Hurlye PA-C Last Documented On 4 8:54AM ; [facility] Assessments Includes: Assessments from this encounter No Assessments Recorded Medical Equipment - Implanted Devices Includes: Current Devices No Medical Equipment Recorded Medications Includes: Medications discussed during this encounter and other current Medications Current Medications (continue as prescribed) motrin [MANUAL] Oral Tablet 12/01/2023 Provider: Diagnosis: Last Documented On 4 10:29AM By Aamir Morrow ; [facility] Medications Administered Includes: Administered Medications from this encounter No Administered Medications Recorded Vital Signs Includes: Vital Signs from this encounter Vital Name 03/02/2024 08:03A Blood Pressure Sitting (mmHg) 137/80 Pulse Rate-Sitting (bpm) 91 Temp-Temporal 96.8 Height (in) 71 Weight (lb) 190 Body Mass Index 26.5 Body Surface Area 2.1 Oxygen Saturation (%) 97 Last Documented: On 03/02/2024 8:03AM ; [facility] Results Includes: Results discussed during this encounter [...] Time Diagnosis Established Patient Rosa Hurley PA-C [facility] 03/02/20 8:00AM 8:39AM Insurance Includes: Active Insurance Policies Plan Name Member ID Group # Subscriber Relationship Effect eliezer Dates 1 - [employer] [id number] Carlos Enrique Osman Self Clinical Notes Includes: Clinical Notes from this encounter * Progress note Date Encounter Last Documented by 03/02/2024 Established Patient Bakari davis on 03/02/2024; 8:55 AM, Rosa Hurley PA-C; [facility], Reason For Visit Chief complaint: Follow-up left fourth metacarpal fracture Date of injury: 10/28/2023 History of Present Illness: Patient is a tdmfj-nzvi-sbuajvsf 63-year-old male who sustained a fourth metacarpal [...] for the next couple of years before fdc. 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 He has scheduled an appointment with [facility] as a second opinion as he [...]
--- OUTSIDE RECORDS SUMMARY | 2024-10-25 09:05 | XMS_ITS | Clinical Summary ---
Author Organization [facility] Address [address] [place] [phone] Phone Care Team Providers Care Self Pay Specialist Name Role Phone Burke ROBLES, Isabelle Primary Care Provider [phone] [facility] Unavailable [phone] Reason for Visit and Chief Complaint Established [...] Documented On 10:29AM By Aamir Morrow ; [facility], Medications Administered Includes: Administered Medications from this [...] Relationship Effect eliezer Dates 1 - [employer] [id number] Carlos Enrique Jacqui Self Clinical Notes Includes: Clinical Notes from this encounter No Clinical Notes Recorded
== END 2024-10-25 08:56 | disposition home or self-care (01) ==
PROVIDERS: PCP Internal Medicine; Visit Provider Internal Medicine
DX: I10 Essential (primary) hypertension (principal)

== ENCOUNTER 2025-04-25 08:26 | Outpatient (AMB) | payer OTHER, SELFPAY ==
--- NOTE | 2025-04-24 20:45 | MHC.PC.OV ---
Vital Signs 04/25/25 08:52 Height 5 ft 11 in Weight 190 lb 4 oz BMI 26.5 BP 126/70 Blood Pressure Location Lt brachial Position Sitting Respiration 18 Pulse 88 Pulse Source Pulse Oximeter Temp 97.3 F Temp Source Temporal Artery Scan Pulse Oximetry (%) 95 Oxygen Delivery Method Room Air Intake Visit Reasons: ZAIDA Dr Orr/ f/u Radiation Control Health Physicist Required: No Accompanied by: Self / Same As Patient Allergies No Known Allergies (No Known Allergies*) Allergy (Verified 04/25/25 08:59) Medication List - Last Reconciled 04/25/25 by JAROCHO Espinoza amlodipine-benazepril 10-20 mg 1 cap PO DAILY blood pressure monitor As directed metformin 500 mg PO DAILY rosuvastatin 20 mg PO DAILY sildenafil 100 mg PO Tobacco use date assessed: 04/25/25 Fall risk assessment: No Falls in past year Last assessed Fall Risk: 04/25/25 Dental Screening Dental Screen Date: 04/25/25 Did you have a dental visit in the last 12 months?: Yes Did you have a dental problem in the last 6 months where you did not have access to dental care?: No Was dental information given to patient?: Patient has dentist HPI ZAIDA Dr Orr/ 6 month f/u HPI Details The patient is a 64-year-old male presenting to transition care from Dr. Orr who retired 5 months ago. 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 He also has a diagnosis of diabetes, hypertension and dyslipidemia. 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 The high-grade stenosis in the proximal or mid circumflex, but distal portion was small and hence not well seen.. There was a 50% narrowing after the takeoff of the acute marginal branches. No significant stenosis elsewhere. Echocardiogram from him any with normal LVEF 55-60%, normal diastolic filling and no significant valvular pathology and normal pulmonary pressures. Blood pressure is stable on current medications of amlodipine/benazepril. The patient lipids are on the higher side. Reports compliance with statin Patient was evaluate by an web development consultant in 2020. No eye complication related to diabetes noted. He reports difficulty sleeping at night, waking up every hour, and feeling fatigued during the day. He has tried various interventions, including a sleep study at home, but has not yet obtained a CPAP machine. Patient reports having a sleep study couple years ago and he is not sure of the date. No results were noted in the chart. We will obtain another sleep study, then refer the patient to sleep Medicine. The patient also experiences leg cramps that wake him up at night, which he attributes to his diabetes and possibly his cholesterol medication. He has been taking magnesium, which provides some relief, and is considering starting gabapentin. He has a history of diabetes mellitus, managed with metformin, and monitors his blood glucose levels regularly. He expresses interest in using a continuous glucose monitor, although insurance coverage is uncertain. The patient has hypertension and hyperlipidemia, for which he is under regular cardiology follow-up every six months. He reports occasional chest tightness but no persistent chest pain or palpitations. He has benign prostatic hyperplasia, causing nocturia, and has consulted a urologist without significant improvement. The patient reports symptoms of allergic rhinitis, including nasal congestion and postnasal drip, and has experienced vertigo in the past, which was diagnosed after an episode of severe dizziness and nausea. Patient complains of imbalance gait, which was confirmed during assessment, plus a positive Romberg test. [facility] Medical History Other and unspecified hyperlipidemia Essential hypertension Type 2 diabetes mellitus 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 1. Little interest or pleasure in doing things: not at all 2. Feeling down, depressed, or hopeless: several days 3. Trouble falling or staying asleep, or sleeping too much: several days 4. Feeling tired or having little energy: several days 5. Poor appetite or overeating: not at all 6. Feeling bad about yourself - or that you are a failure or have let yourself or your family down: not at all 7. Trouble concentrating on things, such as reading the newspaper or watching television: not at all 8. Moving or speaking so slowly that other people could have noticed. Or the opposite - being so fidgety or restless that you have been moving around a lot more than usual: not at all 9. Thoughts that you would be better off or of hurting yourself in some way: not at all Total score: 3 Source: Developed by Drs. Carlos Enrique Medina, Chasity Lepe, Mohan Mann and colleagues, with an educational tucker from [employer]. Thrive Questionnaire Date Thrive assessed: 04/25/25 I am a: Patient What is your living situation today?: I have a steady place to live Within the past 12 months, did the food you bought not last and you didn't have the money to get more?: Never true Within the past 12 months, did you worry whether your food would run out before you got money to buy more?: Never true Do you have trouble paying for medicines?: No Do you have trouble getting transportation to medical appointments?: No Do you have trouble paying your heating and electricity bill?: No Do you have trouble taking care of your child, family member or friend?: No Do you have trouble with day-to-day activities such as bathing, preparing meals, shopping, managing finances, etc.?: No Are you currently unemployed and looking for a job?: No Are you interested in more education?: No Please select the resources that you would like help with: None Currently or been in a relationship where the following occur: No concerns reported THRIVE Score: 0 AUDIT C Alcohol Use Questionnaire (AUDIT-C) 1. How often do you have a drink containing alcohol?: Never 3. How often do you have six or more drinks on one occasion?: Never Total Score: 0 JESUS-7 AMB Questionnaire JESUS-7 Date JESUS - 7 assessed: 04/25/25 Feeling nervous, anxious, or on edge: 0 = Not at all Not being able to stop or control worryin = Not at all Worrying too much about different things: 0 = Not at all Trouble relaxin = Not at all Being so restless that it is hard to sit still: 0 = Not at all Becoming easily annoyed or irritable: 0 = Not at all Feeling afraid as if something awful might happen: 0 = Not at all Total JESUS-7 score (0-4 normal; 5-9 mild; 10-14 moderate; 15-21 severe): 0 Source: Developed by Drs. Carlos Enrique Medina, Chasity Lepe, Mohan Mann and colleagues, with an educational tucker from [employer]. Review of Systems Const Reports daytime sleepiness, Reports fatigue, Denies headache(s), Reports lethargy, Reports snoring and Reports stops breathing during sleep Eyes Denies loss of vision ENT Denies vertigo, Denies dizziness, Denies headache(s) and Denies sore throat Card Denies chest pain, Denies leg edema, Denies lightheadedness and Reports other (Reports chest tightness intermittently) Resp Denies cough, Denies hemoptysis, Reports snoring and Denies wheezing GI Denies abdominal pain, Denies melena, Denies constipation, Reports diarrhea (Occasional depending on what he eats) and Denies vomiting Denies dysuria, Reports nocturia and Denies urinary urgency Musc Reports abnormal gait, Denies arthralgias, Denies joint swelling, Denies numbness and Denies tingling Neuro Denies Abnormal speech present, Reports abnormal gait, Denies behavioral changes, Denies vertigo, Denies dizziness, Denies headache(s), Denies loss of vision, Denies memory loss, Denies numbness, Denies tingling and Reports paresthesias (Bilateral lower extremity) Psych Denies anxiety, Denies behavioral changes, Denies depression, Denies memory loss and Denies panic attacks Endo Reports fatigue Macario/Lymph Denies easy bleeding and Denies easy bruising Aller/Immun Denies wheezing Physical exam (Primary Care) Vital Signs: Last Vital Signs Temp 97.3 F 04/25/25 08:52 Pulse 88 04/25/25 08:52 Resp 18 04/25/25 08:52 BP 126/70 04/25/25 08:52 Pulse Ox 95 04/25/25 08:52 Oxygen Delivery Method Room Air 04/25/25 08:52 BMI result Body Mass Index 26.5 Tobacco/Smoking Status: Tobacco use Status Tobacco use date assessed 04/25/25 04/25/25 08:59 Patient Tobacco Use Status Former Tobacco user 04/24/25 20:47 Tobacco use type Cigarette 04/24/25 20:47 e-Cigarette/Vaping Use Never Used 04/24/25 20:47 PHQ-9: PHQ-9 Score PHQ-9: Total score 3 04/25/25 08:59 Thrive Assessment: Date of Thrive Assessment Date Thrive assessed 04/25/25 04/25/25 08:59 Currently or been in a relationship where the following occur: No concerns reported Const General: healthy appearing, no acute distress, alert and awake Nutritional Appearance: well nourished Orientation/consciousness: oriented to person, oriented to place and oriented to time HENMT Ears: TM's normal bilaterally General nose exam: Normal nasal mucous membranes and turbinates present Eyes Conjunctivae: conjunctivae normal Sclerae: sclerae normal Pupils: Equal, round and reactive pupils present Neck Neck: Yes no lymphadenopathy and Yes no JVD Thyroid: Thyroid normal Carotids: no bruits Resp Effort & Inspection: normal respiratory effort and not tachypneic Auscultation: no crackles, no rales, no rhonchi and no wheezes Cardio Rate: regular rate Rhythm: regular rhythm Heart sounds: no murmurs and normal S1 and S2 GI Palpation (GI): Soft to palpation, nontender, no hepatomegaly and no splenomegaly Auscultation: normal bowel sounds General: Yes no CVA tenderness Back/Spine/Pelvis Back: no CVA tenderness Skin General skin exam: no rashes or lesions noted and dry skin Neuro General: oriented to person, oriented to place and oriented to time Cranial nerves: Yes Equal, round and reactive pupils present Speech: No Abnormal speech present Gait exam (Neuro): Staggering gait present Motor exam (neuro): no tremor noted Romberg Test: Positive Extrem Right upper extremity: full ROM Left upper extremity: full ROM Right lower extremity: full ROM; no edema Left lower extremity: full ROM; no edema Psych Mental Status: mental status grossly normal Speech and movement: Normal speech and movement present Affect: normal affect Attitude: cooperative Thought process: Normal thought process present Coding Level of Care Code Est Pt Level 4 (04834) Diagnoses Essential hypertension I10 Anomalous origin of coronary artery Q24.5 Atherosclerotic cardiovascular disease I25.10 Hyperlipidemia, unspecified hyperlipidemia type E78.5 Hyperlipidemia type: unspecified Type 2 diabetes mellitus with unspecified complications E11.8 Gait disturbance R26.9 Positive Romberg test R29.818 Sleep apnea, unspecified type G47.30 Sleep apnea type: unspecified type Paresthesia and pain of both upper extremities R20.2; M79.601; M79.602 Time Spent (min) 41 Assessment & Plan Assessment & Plan (1) Essential hypertension: Code(s): I10 - Essential (primary) hypertension Category: Medical Plan: Blood pressure 126/70-goal systolic is less than 130 mmhg Encouraged DASH diet and activity as tolerated Refrain from alcohol use and if you smoke, smoking cessation is strongly advised Continue amlodipine-benazepril 10-20 mg daily (2) Anomalous origin of coronary artery: Code(s): Q24.5 - Malformation of coronary vessels Category: Medical Plan: Coronary CTA from 2019 with 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 The high-grade stenosis in the proximal or mid circumflex, but distal portion was small and hence not well seen.. There was a 50% narrowing after the takeoff of the acute marginal branches. No significant stenosis elsewhere. Echocardiogram from 22 him any with normal LVEF 55-60%, normal diastolic filling and no significant valvular pathology and normal pulmonary pressures. (3) Atherosclerotic cardiovascular disease: Code(s): I25.10 - Atherosclerotic heart disease of [place] coronary artery without angina pectoris Category: Medical Plan: Echocardiogram from 22 him any with normal LVEF 55-60%, normal diastolic filling and no significant valvular pathology and normal pulmonary pressures. Reports intermittent chest tightness but denies pain. Unsure if this is related to respiratory status versus cardiology. Encouraged the patient to follow up with Cardiology. Continue rosuvastatin 20 mg daily. (4) Hyperlipidemia: Code(s): E78.5 - Hyperlipidemia, unspecified Category: Medical Qualifiers: Hyperlipidemia type: unspecified Qualified Code(s): E78.5 - Hyperlipidemia, unspecified Plan: The patient cholesterol shows total cholesterol 140, LDL 83 decreased from 112, HDL 42, 10/23/2024 Reinforced low-cholesterol diet and activity as tolerated Lipid panel ordered to re-evaluate Continue rosuvastatin 20 mg daily (5) Type 2 diabetes mellitus with unspecified complications: Code(s): E11.8 - Type 2 diabetes mellitus with unspecified complications Category: Medical Plan: Most recent labs was in October 23/2025. Fasting glucose 116 and A1c 5.7%. This is within goal. Reinforced low sugar/carbohydrate diet and activity as tolerated. Continue metformin 500 mg daily The patient would like to use it continuous glucose monitoring system. Reports that at times he feels off when he is at work and he is not in a good position to check his blood sugar. Explained to the patient that his insurance might cover this monitoring system for him. He would still like to try and get this. (6) Gait disturbance: Code(s): R26.9 - Unspecified abnormalities of gait and mobility Category: Medical Plan: Patient reports that he has a fear of falling due to his unsteady gait The patient staggers the when getting up from sitting and was noted to have a positive Romberg on exam Neurology referral placed (7) Positive Romberg test: Code(s): R29.818 - Other symptoms and signs involving the nervous system Category: Medical Plan: Neurology referral based (8) Sleep apnea: Code(s): G47.30 - Sleep apnea, unspecified Category: Medical Qualifiers: Sleep apnea type: unspecified type Qualified Code(s): G47.30 - Sleep apnea, unspecified Plan: Reports having a home sleep study done couple years back and was told that he needs a CPAP machine The patient has not followed up since, but has been paying more attention to his health lately and would like to be referred to the specialist. No sleep study was noted in chart. We will have the patient repeat the sleep study then refer him to sleep Medicine (9) Paresthesia and pain of both upper extremities: Code(s): R20.2 - Paresthesia of skin; M79.601 - Pain in right arm; M79.602 - Pain in left arm Category: Medical Plan: Ongoing for a while waking him up out of his sleep. He has been taking magnesium otc Gabapentin 100mg po at bedtime added. Encouraged adequate fluid hydration Orders: Orders Complete Blood Count Auto Diff Today E11.8 - Type 2 diabetes mellitus with unspecified complications, E78.5 - Hyperlipidemia, unspecified, I10 - Essential (primary) hypertension, I25.10 - Atherosclerotic heart disease of [place] coronary artery without angina pectoris, Q24.5 - Malformation of coronary vessels Comprehensive [place]. Panel Fast Today E11.8 - Type 2 diabetes mellitus with unspecified complications, E78.5 - Hyperlipidemia, unspecified, I10 - Essential (primary) hypertension, I25.10 - Atherosclerotic heart disease of [place] coronary artery without angina pectoris, Q24.5 - Malformation of coronary vessels Lipid Panel Today E11.8 - Type 2 diabetes mellitus with unspecified complications, E78.5 - Hyperlipidemia, unspecified, I10 - Essential (primary) hypertension, I25.10 - Atherosclerotic heart disease of [place] coronary artery without angina pectoris, Q24.5 - Malformation of coronary vessels Vitamin D 25-OH Total Today E11.8 - Type 2 diabetes mellitus with unspecified complications, E78.5 - Hyperlipidemia, unspecified, I10 - Essential (primary) hypertension, I25.10 - Atherosclerotic heart disease of [place] coronary artery without angina pectoris, Q24.5 - Malformation of coronary vessels TSH reflex Free T4 Today E11.8 - Type 2 diabetes mellitus with unspecified complications, E78.5 - Hyperlipidemia, unspecified, I10 - Essential (primary) hypertension, I25.10 - Atherosclerotic heart disease of [place] coronary artery without angina pectoris, Q24.5 - Malformation of coronary vessels PSA,Total (Free>4and<10) Today E11.8 - Type 2 diabetes mellitus with unspecified complications, E78.5 - Hyperlipidemia, unspecified, I10 - Essential (primary) hypertension, I25.10 - Atherosclerotic heart disease of [place] coronary artery without angina pectoris, Q24.5 - Malformation of coronary vessels Vitamin B12 Today M79.601 - Pain in right arm, M79.602 - Pain in left arm, R20.2 - Paresthesia of skin UA CC w/rflx Micro + Cult Today E11.8 - Type 2 diabetes mellitus with unspecified complications, E78.5 - Hyperlipidemia, unspecified, I10 - Essential (primary) hypertension, I25.10 - Atherosclerotic heart disease of [place] coronary artery without angina pectoris, Q24.5 - Malformation of coronary vessels RT home sleep study Today G47.30 - Sleep apnea, unspecified Referrals Neurology Referral M79.601 - Pain in right arm, M79.602 - Pain in left arm, R20.2 - Paresthesia of skin, R26.9 - Unspecified abnormalities of gait and mobility, R29.818 - Other symptoms and signs involving the nervous system Medications: New gabapentin 100 mg PO BEDTIME 30 caps 2RF fluticasone propionate 50 mcg/actuation (Flonase Allergy Relief) administer into each nostril 1 spray intranasal BID 16 grams 0RF
--- OUTSIDE RECORDS SUMMARY | 2025-04-25 08:45 | XMS_ITS | Clinical Summary ---
Author Organization [facility] Address [address] [place] [address] Phone Care Team Providers [employer] Executive Director Name Role Phone Isabelle Turk MD Primary Care Provider [phone] Encounters Date Type Department Care Team Description 03/03/2025 10:38 AM EDT - 03/03/2025 11:59 PM EDT Hospital Encounter Ultrasound [address] [place] [address] Benign prostatic hyperplasia with lower urinary tract symptoms Discharge Disposition: Home or Self Care from Last 3 Months Medical History Medical History Date Comments Essential hypertension DX:Essent ial hypertension Hyperlipidemia DX:Hyperlipidemi a Diabetes mellitus type 2, co ntrolled, with complications (CMS/HCC V24, CMS/HCC V28) DX:Diabetes mellitus type 2, controlled, with complications ([facility]) Social History Tobacco Use Types Packs/Day Years Used Date Smoking Tobacco: Never Assessed Sex and Gender Information Value Date Recorded Sex Assigned at Not on file Legal Sex Male 5:01 PM EST Gender Identity Male 02/21/2025 4:49 PM EDT Sexual Orientation Not on file Obstetrics History [...] Health Maintenance Due Date Last Done Comments Pneumococcal Vaccine: 50+ Years (2 of 2 - PCV) 06/24/2020 06/24/2019 Abdominal Aortic Aneurysm (AAA) Screen 04/13/2024 Cholesterol Screening (Lipid Panel) 04/13/2024 Colorectal Cancer Screening: Colonoscopy 04/13/2024 Hepatitis C Screening 04/13/2024 Social Influencers of Health Screening 04/13/2024 COVID-19 Vaccine ( season) 2024 09/18/2021, 02/01/2021, 01/04/2021 Falls Risk Assessment 2024 Depression Screening 09/22/2024 Influenza Vaccine (#1) 2025 , 06/24/2019, 08/02/2018, Additional history exists DTaP,Tdap,and Td Vaccines (2 - Td or Tdap) 11/28/2027 11/27/2017 RSV Immunization Adult Patients (1 - 1-dose 75+ series) 2034 Zoster Vaccines Completed 11/02/2019, 08/27/2019 HIB Vaccines Aged Out No longer eligi [...] patient's age to complete this topic Meningococcal B Vaccine Aged Out No l onger eligible based on patient's age to complete this topic RSV Immunization Patients Under 20 months Aged Out No longer eligible based on patient's age to complete this topic Varicella Vaccines Aged Out No longer eligible based on patient's age to complete this topic Procedures Procedure Name Priority Date/Time Associated Diagnosis Comments US RETROPERITONEAL COMPLETE Routine 03/03/2025 11:21 AM EDT Benign prostatic hyperplasia with lower urinary tract symptoms from Last 3 Months Results * US Retroperitoneal Complete (03/03/2025 11:21 AM EDT) Anatomical Region Laterality Modality Body Ultrasound 03/03/2025 12:3 2 PM EDT Impressions 03/03/2025 12:40 PM EDT Enlarged prostate gland. Mural trabeculation of the urinary bladder with a 53 mL postvoid residual. Normal sonographic appearance of the kidneys. -------- FINAL REPORT -------- Dictated By: Víctor Mercado Dictated Date: 03/03/2025 12:32 ET Assigned Physician: Víctor Mercado Reviewed and Electronically Signed By: Víctor Mercado Signed Date: 03/03/2025 12:40 ET Workstation ID: [id number] Transcribed By: Self Edit Transcribed Date: 03/03/2025 12:33 ET Narrative 03/03/2025 12:40 PM EDT PROCEDURE: Renal ultrasound. HISTORY: Renal/Bladder w/ PVR & Prostate Sizing. TECHNIQUE: Grayscale, color Doppler, and spectral Doppler ultrasound of the kidneys. COMPARISON: None. FINDINGS: The right kidney measures 11.8 cm in length and the left kidney measures 11.1 cm in length. No hydronephrosis or focal lesion. Both ureteral jets visualized. Mild mural thickening and trabeculation of the urinary bladder. Post void urinary bladder residual of 53 mL. Enlarged prostate gland with a calculated volume of 44 mL. Procedure Note Víctor Mercado MD - 03/03/2025 PROCEDURE: Renal ultrasound. HISTORY: Renal/Bladder w/ PVR & Prostate Sizing. TECHNIQUE: Grayscale, color Doppler, and spectral Doppler ultrasound ofthe kidneys. COMPARISON: None. FINDINGS: The right kidney measures 11.8 cm in length and the left kidney ziahiorw23.1 cm in length. No hydronephrosis or focal lesion. Both ureteral jets visualized. Mild mural thickening and trabeculation ofthe urinary bladder. Post void urinary bladder residual of 53 mL. Enlarged prostate gland with a calculated volume of 44 mL. IMPRESSION: Enlarged prostate gland. Mural trabeculation of the urinary bladder with a 53 mL postvoidresidual. Normal sonographic appearance of the kidneys. -------- FINAL REPORT -------- Dictated By: Víctor Mercado Dictated Date: 03/03/2025 12:32 ET Assigned Physician: Víctor Mercado Reviewed and Electronically Signed By: Víctor Mercado Signed Date: 03/03/2025 12:40 ET Workstation ID: [id number] Transcribed By: Self Edit Transcribed Date: 03/03/2025 12:33 ET us Bre TAYLOR IMG US PROCEDURES Final Result from Last 3 Months Insurance [facility] Care Teams [employer] Executive Director Relationship Specialty Start Date End Date Isabelle Turk MD [address] [place] [address] Dr Donnie [place] [id number] PCP - General 03/03/24
[2025-04-25 08:52] VITALS: BP 126/70; PULSE 88; RESP 18; TEMP 36.3; O2SAT 95; BMI 26.5
== END 2025-04-25 09:32 | disposition home or self-care (01) ==
LOC: HO.HMCH 08:26
DX: I10 Essential (primary) hypertension (principal); Q24.5 Malformation of coronary vessels; I25.10 Atherosclerotic heart disease of native coronary artery without angina pectoris; E11.8 Type 2 diabetes mellitus with unspecified complications; E78.5 Hyperlipidemia, unspecified; R26.9 Unspecified abnormalities of gait and mobility; R29.818 Other symptoms and signs involving the nervous system; G47.30 Sleep apnea, unspecified; R20.2 Paresthesia of skin; M79.601 Pain in right arm; M79.602 Pain in left arm

== ENCOUNTER → 2025-04-25 08:26 | Outpatient (BNVA) | payer OTHER, SELFPAY | PROVIDERS: PCP Internal Medicine | DX: I10 Essential (primary) hypertension (principal); I25.10 Atherosclerotic heart disease of native coronary artery without angina pectoris; E78.5 Hyperlipidemia, unspecified; E11.8 Type 2 diabetes mellitus with unspecified complications; R26.9 Unspecified abnormalities of gait and mobility; R29.818 Other symptoms and signs involving the nervous system; G47.30 Sleep apnea, unspecified; R20.2 Paresthesia of skin; M79.601 Pain in right arm; M79.602 Pain in left arm; Q24.5 Malformation of coronary vessels; Z79.84 Long term (current) use of oral hypoglycemic drugs; Z79.899 Other long term (current) drug therapy; Z13.39 Encounter for screening examination for other mental health and behavioral disorders; Z13.30 Encounter for screening examination for mental health and behavioral disorders, unspecified | CPT/HCPCS: 99212 ==

== ENCOUNTER 2025-04-26 07:12 | Outpatient (REF) | payer OTHER, SELFPAY ==
--- OUTSIDE RECORDS SUMMARY | 2025-04-26 07:14 | XMS_ITS | Clinical Summary ---
Author Organization [facility] Address [address] [place] [address] Phone Care Team Providers Care Activities Therapist Name Role Phone Isabelle Turk MD Primary Care Provider [phone] Encounters Date Type Department Care Team Description 03/03/2025 10:38 AM EDT - 03/03/2025 11:59 PM EDT Hospital Encounter [facility] Ultrasound [address] [place] [address] Benign prostatic hyperplasia with lower urinary tract symptoms Discharge Disposition: Home or Self Care from Last 3 Months Medical History Medical History Date Comments Essential hypertension DX:Essent ial hypertension Hyperlipidemia DX:Hyperlipidemi a Diabetes mellitus type 2, co ntrolled, with complications (CMS/HCC V24, CMS/HCC V28) DX:Diabetes mellitus type 2, controlled, with complications ([facility]) Social History Tobacco Use Types Packs/Day Years [...] Signed Date: 03/03/2025 12:40 ET Workstation ID: [id number] Transcribed By: Self Edit Transcribed Date: 03/03/2025 [...] cm in length and the left kidney [id number] cm in length. No hydronephrosis or focal [...] Signed Date: 03/03/2025 12:40 ET Workstation ID: [id number] Transcribed By: Self Edit Transcribed Date: 03/03/2025 12:33 ET us Bre TAYLOR IMG US PROCEDURES Final Result from Last 3 Months Insurance GENERIC [facility] PLAN Care Teams Activities Therapist Relationship Specialty Start Date End Date Isabelle Turk MD [address] [place] [address] Dr Donnie [place] [id number] PCP - General 03/03/24
[2025-04-26 07:33] LABS: MANUAL DIFF FLAG NO
[2025-04-26 07:43] LABS: Hematocrit 43.6 % (42.0-52.0); Hemoglobin 14.4 g/dl (14.0-18.0); Imm Gran Abs Auto 0.01 X10*3/uL (0.00-0.03); Imm Gran Pct Auto 0.1 % (0.0-0.4); Lymphocytes Absolute Auto 1.7 X10*3/uL (1.2-4.9); Mean Corpuscular HGB Conc 33.0 g/dl (31.0-36.0); Mean Corpuscular Hemoglobin 27.2 pg (27.0-33.0); Mean Corpuscular Volume 82.3 fL (80.0-98.0); NRBC Abs Auto 0.000 X10*3/uL (0.0-0.012); NRBC Pct Auto 0.0 /100WBC (0.0-0.2); Platelet Count 176 X10*3/uL (160-400); Red Blood Count 5.30 X10*6/uL (4.60-5.80); White Blood Count 7.1 X10*3/uL (4.8-10.8)
[2025-04-26 08:20] LABS: Appearance Urine Clear; Glucose Urine UA Negative (Negative); PH 5.5 (5.0-9.0); Specific Gravity - Urine 1.015 (1.005-1.025)
[2025-04-26 08:20] LABS: Alanine Aminotransferase 32 U/L (0-40); Albumin Level 4.7 g/dL (3.5-5.0); Alkaline Phosphatase 57 U/L (39-117); Anion Gap 12 (12-20); Aspartate Amino Transferase 27 U/L (5-37); Blood Urea Nitrogen 18 mg/dL (9-16); Calcium 9.2 mg/dL (8.4-10.2); Carbon Dioxide 25 mmol/L (22-29); Chloride 105 mmol/L (96-108); Cholesterol 146 mg/dL (<200); Estimated Glomerular Filt Rate > 60; HDL Cholesterol 41 mg/dL (>40); Potassium 4.4 mmol/L (3.3-5.1); Sodium 138 mmol/L (135-145); Total Protein 7.4 g/dL (6.5-8.0); Triglycerides 117 mg/dL (<150)
[2025-04-26 08:33] LABS: PSA,Total (Free>4and<10) 2.50 ng/mL (0.00-4.00)
[2025-04-26 08:42] LABS: Vitamin B12 600 pg/mL (200-900)
== END 2025-04-26 07:13 | disposition home or self-care (01) ==
LOC: HO.LAB 07:12
DX: R20.2 Paresthesia of skin (principal); I10 Essential (primary) hypertension; I25.10 Atherosclerotic heart disease of native coronary artery without angina pectoris; E11.8 Type 2 diabetes mellitus with unspecified complications; M79.601 Pain in right arm; M79.602 Pain in left arm; E78.5 Hyperlipidemia, unspecified
CPT/HCPCS: 36415; 80053; 80061; 81003; 82306; 82607; 84153; 84443; 85025

== ENCOUNTER 2025-05-09 12:48 | Outpatient (AMB) | payer OTHER, SELFPAY ==
[2025-05-09 12:50] VITALS: BP 110/64; PULSE 97; O2SAT 96; BMI 26.3
--- NOTE | 2025-05-09 12:50 | A.OFFVIS_ITS ---
Vital Signs 05/09/25 12:50 Height 5 ft 11 in Weight 188 lb 6 oz BMI 26.3 BP 110/64 Blood Pressure Location Rt brachial Position Sitting Pulse 97 Pulse Source Pulse Oximeter Pulse Oximetry (%) 96 Oxygen Delivery Method Room Air Intake Visit Reasons: INP-Other symptoms and signs involving the nervous Intake Note: Paresthesia and pain of bilateral upper extremities and Gait Silk Screen Etcher Required: No Accompanied by: Self / Same As Patient Allergies No Known Allergies (No Known Allergies*) Allergy (Verified 05/09/25 12:57) Medication List - Last Reconciled 05/09/25 by Latoya Harris MD amlodipine-benazepril 10-20 mg 1 cap PO DAILY blood pressure monitor As directed cholecalciferol (vitamin D3) 125 mcg PO QAM fluticasone propionate 50 mcg/actuation (Flonase Allergy Relief) 1 spray intranasal BID gabapentin 100 mg PO BEDTIME metformin 500 mg PO DAILY rosuvastatin 20 mg PO DAILY sildenafil 100 mg PO HPI Comments Details: 64y/o male comes for evaluation of dizziness, feeling off balance for about 1-2 years .He had a fall He has a diagnosis of BPPV for past 4-5 years - had severe episode 4-5 years ago - was admitted and diagnosed with BPPV. He was using dramamine as needed. He was still getting milder episodes. 1 year ago he fell off the ladder - felt off balance , not right in space , thinks it could have been his bifocals.He is not sure he hit his head.He denies any tinnitus . He is not sure if he has heraing loss. He denies double vision . No migraines. He has h/o leg cramps at night that wakes him up - 1-2 years. He had a sleep study- 07/14 Home sleep test- AHI 25/hr O2 mayela -82 % He tried cpap for 1 day. [facility] Medical History (Updated 05/09/25 @ 15:53 by Latoya Harris MD) Obstructive sleep apnea hypopnea, severe Other and unspecified hyperlipidemia Essential hypertension Type 2 diabetes mellitus with unspecified complications 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 Surgical History History of dental surgery Family History Father Hypertension Mother Hypertension Diabetes Social History Housing: Apartment Alcohol intake: never Patient Tobacco Use Status: Former Tobacco user Tobacco use type: Cigarette e-Cigarette/Vaping Use: Never Used Second Hand Smoke Exposure: No service: No Current occupational status: employed Cognitive needs: No Hearing needs: No Vision needs: Yes (glasses) Physical Exam Vital Signs: Last Vital Signs Pulse 97 05/09/25 12:50 BP 110/64 05/09/25 12:50 Pulse Ox 96 05/09/25 12:50 Oxygen Delivery Method Room Air 05/09/25 12:50 BMI result Body Mass Index 26.3 Const General: cooperative, healthy appearing, comfortable and anxious Nutritional Appearance: average body habitus Orientation/consciousness: patient oriented x3 Eyes Pupils: Equal, round and reactive pupils present Neuro Other: Gait- normal Rombergs - negative General: patient oriented x3, tone normal and moves all extremities Cranial nerves: Yes Equal, round and reactive pupils present, Yes Bilaterally intact EOM present, Yes Nystagmus not present, Yes Normal facial strength present, Yes Midline tongue present, Yes Symmetric palate elevation present and Yes Ability to bilaterally elevate shoulders present Cognition (Neuro): normal cognition Gait exam (Neuro): Normal gait present Motor exam (neuro): 5/5 motor strength present throughout and Normal motor muscle tone present throughout Deep tendon reflexes (DTR's): Right triceps reflex intensity grade: 2+, Left triceps reflex intensity grade: 2+, Rt Biceps (C5, C6): 2+, Left biceps reflex intensity grade: 2+, Right brachioradialis reflex intensity grade: 2+, Left brachioradialis reflex intensity grade: 2+, Right patellar reflex intensity grade: 2+ and Left patellar reflex intensity grade: 2+ Coordination: [id number] test normal Assessment & Plan Assessment & Plan (1) Gait disturbance: Comment: vestibular dysfunction Code(s): R26.9 - Unspecified abnormalities of gait and mobility Category: Medical (2) Obstructive sleep apnea hypopnea, severe: Comment: AHI 25/hr O 2 mayela 92 % Code(s): G47.33 - Obstructive sleep apnea (adult) (pediatric) Category: Medical Plan Trial Auto PAP 5-20 cm of water and follow up for compliance. Discussed the importance of treating sleep apnea in detail. Start gabapentin 100mg qhs for leg cramps Will consider PT for gait Low Vit D Medications: New cholecalciferol (vitamin D3) 125 mcg PO QAM 90 caps 6RF Coding Level of Care Code New Pt Level 4 (23293) Complex EM visit Add On G2211 Diagnoses Gait disturbance R26.9 Obstructive sleep apnea hypopnea, severe G47.33
--- OUTSIDE RECORDS SUMMARY | 2025-05-09 13:41 | XMS_ITS | Clinical Summary ---
Author Organization [facility] Address [address] [place] [address] Phone Care Team Providers Care Video Surveillance Technician Name Role Phone Isabelle Turk MD Primary Care Provider Encounters Date Type Department Care Team Description 03/03/2025 10:38 AM EDT - 03/03/2025 11:59 PM EDT Hospital Encounter [facility] Ultrasound [address] [place] [address] Benign prostatic hyperplasia with lower urinary tract symptoms Discharge Disposition: Home or Self Care from Last 3 Months Medical History Medical History Date Comments Essential hypertension DX:Essent ial hypertension Hyperlipidemia DX:Hyperlipidemi a Diabetes mellitus type 2, co ntrolled, with complications (CMS/HCC V24, CMS/HCC V28) DX:Diabetes mellitus type 2, controlled, with complications ([facility]) Social History Tobacco Use Types Packs/Day Years [...] Signed Date: 03/03/2025 12:40 ET Workstation ID: [id number] Transcribed By: Self Edit Transcribed Date: 03/03/2025 [...] cm in length and the left kidney [id number] cm in length. No hydronephrosis or focal [...] Signed Date: 03/03/2025 12:40 ET Workstation ID: [id number] Transcribed By: Self Edit Transcribed Date: 03/03/2025 12:33 ET us Bre TAYLOR IMG US PROCEDURES Final Result from Last 3 Months Insurance GENERIC [facility] PLAN Care Teams Video Surveillance Technician Relationship Specialty Start Date End Date Isabelle Turk MD [address] [place] [address] Dr Donnie [place] [phone] PCP - General 03/03/24
== END 2025-05-09 13:43 | disposition home or self-care (01) ==
LOC: HO.HSMS 12:49
PROVIDERS: Visit Provider Psychiatry & Neurology Neurology
DX: R26.9 Unspecified abnormalities of gait and mobility (principal); G47.33 Obstructive sleep apnea (adult) (pediatric)
CPT/HCPCS: 99204

== ENCOUNTER → 2025-05-09 12:48 | Outpatient (BNVA) | payer OTHER, SELFPAY | PROVIDERS: Visit Provider Psychiatry & Neurology Neurology | DX: G47.33 Obstructive sleep apnea (adult) (pediatric) (principal); R26.9 Unspecified abnormalities of gait and mobility | CPT/HCPCS: 99202 ==

== ENCOUNTER 2025-07-14 10:29 | Outpatient (AMB) | payer OTHER, SELFPAY ==
[2025-07-14 10:31] VITALS: BP 120/70; PULSE 114; TEMP 36.7; O2SAT 96; BMI 26.1
--- NOTE | 2025-07-14 10:31 | AM.OFFWIN_ITS ---
Intake Vital Signs 07/14/25 10:31 Height 5 ft 11 in Weight 187 lb BMI 26.1 BP 120/70 Blood Pressure Location Rt brachial Position Sitting Pulse 114 H Pulse Source Pulse Oximeter Temp 98.1 F Temp Source Oral Pulse Oximetry (%) 96 Oxygen Delivery Method Room Air Intake Visit Reasons: EP-chest pain, sob Intake Note: EP complains of heartburn and throat irritation since yesterday. Patient Tobacco Use Status: Former Tobacco user Allergies No Known Allergies (No Known Allergies*) Allergy (Verified 07/14/25 11:52) Do you need a note to return to daycare/school/sports/work: Yes HPI HPI Comments History of Present Illness Details Patient as informed and verbally consented to the use of an ambient scribe for clinic note documentation during the visit. History of Present Illness The patient is a 64-year-old male presenting with chest pain and elevated heart rate. Chest Pain: - The onset of chest pain began the day prior to presentation. - Pain was primarily noted upon deep sandro athing and exertion, such as climbing stairs. - Described as not worsening with food o r changes in body position. - Thought symptoms might be secondary to heartburn and tried to alleviate pain using heartburn medication which did not help- - Also used ibuprofen which did not help symptoms - The patient reported shortness of pilar th exacerbated by exertion. - Denied a personal or family history of blood clots - No recent periods of prolonged immobil ity - No episodes of dizziness, lightheadedn ess, fever or coughing were reported. - patient has known history of hyperlipi demia, hypertension, coronary artery disease, and diabetes mellitus - Previously smoked but quit two decades ago. Family history revealed the potential for heart issues on the mother's side. Review of Systems Constitutional: Negative for fevers, chills HENT: Negative for congestion, rhinorrhea Respiratory: Positive for shortness of breath and chest tightness. Negative for cough. Cardiac: Positive for chest pain negative for palpitations, leg edema Musculoskeletal: Negative for calf pain, lower extremity swelling Neurological: Negative for dizziness, headaches, light headedness, numbness, weakness Physical Exam General Appearance: Normal appearance, well developed. No acute distress Head: Normocephalic, atraumatic Cardiac: Elevated heart rate noted. Regular rhythm. No murmurs auscultated. Pain not reproducible to palpation. Pulmonary: No respiratory distress. Clear to auscultation bilaterally. Speaking in full sentences. Musculoskeletal: Moving all extremities spontaneously and against gravity. No calf tenderness to palpation. No calf erythema or swelling. Mental Status: Alert and Oriented x 3. Slightly anxious Psychiatric: Normal mood. Normal affect. [facility] Medical History (Updated 05/09/25 @ 15:53 by Latoya Harris MD) Obstructive sleep apnea hypopnea, severe Other and unspecified hyperlipidemia Essential hypertension Type 2 diabetes mellitus with unspecified complications 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 Surgical History History of dental surgery Family History Father Hypertension Mother Hypertension Diabetes Social History Housing: Apartment Alcohol intake: never Patient Tobacco Use Status: Former Tobacco user Tobacco use type: Cigarette e-Cigarette/Vaping Use: Never Used Second Hand Smoke Exposure: No service: No Current occupational status: employed Cognitive needs: No Hearing needs: No Vision needs: Yes (glasses) Physical Exam Vital Signs: Last Vital Signs Temp 98.1 F 07/14/25 10:31 Pulse 114 H 07/14/25 10:31 BP 120/70 07/14/25 10:31 Pulse Ox 96 07/14/25 10:31 Oxygen Delivery Method Room Air 07/14/25 10:31 BMI result Body Mass Index 26.1 Assessment & Plan Assessment & Plan (1) Chest pain: Code(s): R07.9 - Chest pain, unspecified Qualifiers: Chest pain type: unspecified Qualified Code(s): R07.9 - Chest pain, unspecified Plan Assessment and Plan 1. Chest pain - Patient presents with acute onset chest pain worsening with exertion and deep breathing - Symptoms do not appear consistent with musculoskeletal etiology or GERD - EKG in office shows sinus tachycardia upon personal review. No acute ST or T-wave changes noted. - Due to symptoms, further medical evaluation at the ER was recommended for potential serious underlying conditions such as cardiac etiology or pulmonary embolism. - Patient was agreeable with plan and will go to [facility] by private vehicle - ER staff notified of patients upcoming arrival Orders: Orders AMB EKG-In Office Today R07.9 - Chest pain, unspecified Coding Level of Care Code Est Pt Level 5 (29926) Diagnoses Chest pain, unspecified type R07.9 Chest pain type: unspecified
--- OUTSIDE RECORDS SUMMARY | 2025-07-14 12:39 | XMS_ITS | Clinical Summary ---
Author Organization [facility] Address [address] [place] [address] Phone Care Team Providers Care Truck Mechanic Apprentice Name Role Phone Isabelle Turk MD Primary Care Provider [phone] Medical History Medical History Date Comments Essential hypertension DX:Essent ial hypertension Hyperlipidemia DX:Hyperlipidemi a Diabetes mellitus type 2, co ntrolled, with complications (CMS/HCC V24, CMS/HCC V28) DX:Diabetes mellitus type 2, controlled, with complications ([facility]) Social History Tobacco Use Types Packs/Day [...] Health Maintenance Due Date Last Done Comments Colorectal Cancer Screening: Colonoscopy 1960 Pneumococcal Vaccine: 50+ Years (2 of 2 - PCV) 06/24/2020 06/24/2019 Abdominal Aortic Aneurysm (AAA) Screen 04/13/2024 Cholesterol Screening (Lipid Panel) 04/13/2024 Hepatitis C Screening 04/13/2024 Social Influencers of Health Screening 04/13/2024 Falls Risk Assessment 2024 Depression Screening 09/22/2024 COVID-19 Vaccine ( season) 2025 09/18/2021, 02/01/2021, 01/04/2021 Influenza Vaccine (#1) 2025 , 06/24/2019, 08/02/2018, [...] on patient's age to complete this topic Insurance [facility] Care Teams Truck Mechanic Apprentice Relationship Specialty Start Date End Date Isabelle Turk MD [address] [place] [address] [place] [address] PCP - General 03/03/24
== END 2025-07-14 11:27 | disposition home or self-care (01) ==
PROVIDERS: Visit Provider Family Medicine
DX: R07.9 Chest pain, unspecified (principal)

== ENCOUNTER → 2025-07-14 10:29 | Outpatient (BNVA) | payer OTHER, SELFPAY | PROVIDERS: Visit Provider Family Medicine | DX: R07.89 Other chest pain (principal); R06.02 Shortness of breath; I10 Essential (primary) hypertension; E78.5 Hyperlipidemia, unspecified; I25.10 Atherosclerotic heart disease of native coronary artery without angina pectoris; E11.9 Type 2 diabetes mellitus without complications; Z87.891 Personal history of nicotine dependence; Z82.49 Family history of ischemic heart disease and other diseases of the circulatory system | CPT/HCPCS: 93005; 99212 ==

== ENCOUNTER 2025-07-14 11:30 | Emergency (ER) | payer OTHER, SELFPAY ==
--- NOTE | ~2025-07-14 | CT_ITS ---
EXAMINATION: CT ANGIOGRAM CHEST CLINICAL INFORMATION: 64-year-old male, dyspnea, pleuritic chest pain and tachycardia. Rule out PE. COMPARISON: No prior chest CT available. Chest radiograph dated earlier same day. TECHNIQUE: Multiple axial images were obtained through the chest after the administration of 50 mL of Omnipaque 350 intravenous contrast. Extensive vascular post-processing including two-dimensional and three-dimensional reformatted images were created and reviewed on an independent workstation. This CT examination was performed using dose optimization techniques as appropriate, variously including the following: *Automated exposure control *Adjustment of mA and/or kV according to patient size (this includes techniques or standardized protocols for targeted exams where dose is matched to indication/reason for exam; i.e. extremities or head) *Use of iterative reconstruction technique FINDINGS: VASCULAR: Study quality is diagnostic with adequate enhancement of the pulmonary arterial system. There is no evidence of pulmonary embolus or filling defect. The main pulmonary artery is normal in size. There is no evidence of right heart strain. There is no contrast reflux into the IVC. The aorta demonstrates minimal atheromatous calcification, with no evidence of aneurysm or acute aortic syndrome. The great vessels branch normally and are grossly patent. The heart size is normal. There is no pericardial effusion. Mild coronary calcifications. LUNGS: Mild paraseptal emphysema is present. There is mild gravity dependent atelectatic change bilaterally. Lungs otherwise grossly clear without consolidation or abnormal opacity. No interstitial disease evident. Small airways appear normal. Central airways are patent. No effusion or pneumothorax. No suspicious pulmonary nodule. Average diameter 4 mm nodule in the right middle lobe, unchanged from 2019 and benign. There are a few calcified granulomata present. PLEURA: There is no pleural effusion. No pleural mass or thickening. MEDIASTINUM: No mediastinal adenopathy or mass. Partially imaged thyroid is normal. Esophagus is normal. No abnormal fluid collection. AXILLA/CHEST WALL: No abnormal lymph nodes or masses. UPPER ABDOMEN: Imaged upper abdominal contents demonstrate no abnormalities. OSSEOUS STRUCTURES: No suspicious lytic or blastic bone lesions. CT/CT angio chest PE protocol IMPRESSION: 1. There is no evidence of pulmonary embolus. There is no acute aortic syndrome or aneurysm. 2. There is mild to moderate paraseptal emphysema. There is no active lung disease. 3. Ancillary findings as discussed. Electronically signed by: Ken Graham MD 07/14/2025 03:30 PM EDT RP
--- NOTE | ~2025-07-14 | XR_ITS ---
EXAMINATION: XR CHEST CLINICAL INFORMATION: pain COMPARISON: None available. TECHNIQUE: Frontal view of the chest was obtained. FINDINGS: No significant abnormality is noted involving the heart, lungs, mediastinum, bony thorax or soft tissues. XR/XR chest 1V IMPRESSION: No acute disease. Electronically signed by: Manuel Hardy MD 07/14/2025 12:21 PM EDT RP
--- NOTE | 2025-07-14 11:32 | ECG_ITS ---
Test Reason : cp Blood Pressure : */* mmHG Vent. Rate : 107 BPM Atrial Rate : 107 BPM P-R Int : 180 ms QRS Dur : 94 ms QT Int : 328 ms P-R-T Axes : 77 38 80 degrees QTcB Int : 437 ms Sinus tachycardia Minimal voltage criteria for LVH, may be normal variant ( Jamel product ) Anteroseptal infarct , age undetermined Abnormal ECG When compared with ECG of 23-Jun-2019 22:12, Premature ventricular complexes are no longer Present Anteroseptal infarct is now Present Nonspecific T wave abnormality now evident in Lateral leads Referred By: Generic ED Physician Electronically Signed By: SAVITA MALONEY MD
[2025-07-14 11:51] VITALS: BP 130/70; PULSE 110; RESP 20; TEMP 36.1; O2SAT 97; BMI 25.3
--- NOTE | 2025-07-14 11:53 | ED.CHESTPAIN ---
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 He felt a little short of breath as well. No fevers, illness with URI but 3 months ago. He denies recent travel or procedures. He denies CAD though it is in his note. He notes the pain persisted and today worse with deep breaths. He was referred by his PCP. No hx of VTE. He does not going up the stairs yesterday he felt more winded than usual. He did walk his dog on Friday about a 1.5 mile trek but no symptoms then. MD complaint: chest pain Pertinent past history: coronary artery disease Onset (ago): day(s) (1) Timing of current episode: constant Prior episodes: Yes Onset: during rest and during exertion Pain location: substernal Pain radiation: none Severity: moderate Quality: tightness Relieving factors: nothing Exacerbating factors: inspiration Associated symptoms: dyspnea Treatment prior to arrival: none Related Data Home Medications ?Medication ?Instructions ?Recorded ?Confirmed sildenafil 100 mg tablet 100 mg PO 09/20/24 05/09/25 Previous Rx's ?Medication ?Instructions ?Recorded blood pressure monitor #1 ea 04/04/21 amlodipine 10 mg-benazepril 20 mg 1 cap PO DAILY #90 caps 02/02/25 capsule rosuvastatin 20 mg tablet 20 mg PO DAILY #90 tabs 03/30/25 fluticasone propionate 50 1 spray intranasal BID #16 grams 04/25/25 mcg/actuation nasal spray,suspension (Flonase Allergy Relief) gabapentin 100 mg capsule 100 mg PO BEDTIME #30 caps 04/25/25 metformin 500 mg tablet 500 mg PO DAILY #90 tabs 05/02/25 cholecalciferol (vitamin D3) 125 125 mcg PO QAM #90 caps 05/09/25 mcg (5,000 unit) capsule Allergies Allergy/AdvReac Type Severity Reaction Status Date / Time No Known Allergies (No Known Allergy Verified 07/14/25 11:52 Allergies*) Review of Systems Review of Systems: Constitutional : No Weight loss, No Fever, No Chills ENT/Mouth : No sore throat, No Rhinorrhea Eyes: No Eye Pain, No Swelling Cardiovascular : pos Chest Pain, pos SOB, pos Dyspnea on Exertion, No Orthopnea, No Edema, No Palpitations Respiratory : No Cough, No Sputum Gastrointestinal : no Nausea, No Vomiting, No Diarrhea, No abdominal Pain, No Hematochezia, No Melena Genitourinary : No Dysuria, No Urinary Frequency Musculoskeletal : No joint pain, No Myalgias, No Joint Swelling Skin : No Skin Lesions, No rash Neuro : No Weakness, No Numbness, No Dizziness, No Headache Psych : No Anxiety/Panic, No Depression Heme/Lymph: No Bruising, No Lymphadenopathy Endocrine : No Polyuria, No Polydipsia All other systems reviewed and are negative [facility] Past Medical History Attestation statement: The following information was validated with the patient. Source: old records reviewed Medical History Obstructive sleep apnea hypopnea, severe Other and unspecified hyperlipidemia Essential hypertension Type 2 diabetes mellitus with unspecified complications 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 Surgical History History of dental surgery Family History Family History Father Hypertension Mother Hypertension Diabetes Social History Social History Housing: Apartment Alcohol intake: never Patient Tobacco Use Status: Former Tobacco user Tobacco use type: Cigarette e-Cigarette/Vaping Use: Never Used Second Hand Smoke Exposure: No Advance Directives: No Advance Directives Information Provided: No service: No Current occupational status: employed Cognitive needs: No Hearing needs: No Vision needs: Yes (glasses) Physical Exam Vital Signs: Vital Signs: Last Vital Signs Temp 97.0 F 07/14/25 11:51 Pulse 90 07/14/25 14:00 Resp 16 07/14/25 14:00 BP 130/70 07/14/25 14:00 Pulse Ox 96 07/14/25 14:00 O2 Del Method Room Air 07/14/25 14:00 BMI result Body Mass Index 25.3 Appearance: Alert. Oriented X3. No acute distress. Eyes: Pupils equal, round and reactive to light. ENT: Pharynx normal. Neck: Normal inspection. Neck supple. CVS: Normal heart rate and rhythm. Pulses normal. Respiratory: No respiratory distress. Breath sounds normal. Abdomen: Soft and nontender. Skin: Skin warm and dry. Normal skin color. Normal skin turgor. Extremities: No lower extremity edema. No calf ttp Neuro: Oriented X 3. No motor deficit. No sensory deficit. CN2-12 intact Course Course Course Narrative: This is an RME: Additional HPI, ROS, PE not included below will be deferred to primary provider. RME assessment and note performed by: Emily Soliman PA-C This is a [id number], with a hx of DM2, HLD, HTN, who presents to the ER with a complaint of CP with exertion since yesterday, now reporting pleuritic CP. No recent travel, surgery, or hospitalizations. Does report periodic muscle cramping in his lower extremities however no calf tenderness presently. No history of blood clots. No history of clotting disorders that run in the family. Plan: Labs, EKG, chest x-ray Medications Administered Discontinued Medications Generic Name Dose Route Start Last Admin Trade Name Freq PRN Reason Stop Dose Admin Iohexol 100 ml 07/14/25 14:53 07/14/25 14:53 Iohexol 350 Mg/Ml 100 Ml Infus..Btl IV 07/14/25 14:54 65 ml ONCE ONE Administration Procedures Procedure Narrative Procedure Narrative: EMERGENCY ULTRASOUND INTERPRETATION-Limited Echocardiography? The study reveals:? Impression: NORMAL LV FUNCTION, NO RV DYSFUNCTION, NO PERICARDIAL EFFUSION Emergent Cardiac for Indication:? Views Used: PLAX, PSSA, A4, SX, IVC Pericardial Effusion/Tamponade Findings: NONE RV Dilation (> LV diam in 4ch apical):? NONE Global LV Fxn: NORMAL IVC Dilation and Resp Variation: NORMAL Performed by: CESAR Date: 07/14/25 Time: 128pm CPT:05739; Reference Codes? 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 He may also need CTA given he is mod probability. He has distal pulses intact and his pain is atypical doubt dissection. His symptoms are concerning for ACS and his HEART score is 4 though it is mostly based off risk factors and his symptoms have been present x 24 hours. Differential Diagnosis Differential Diagnoses: The differential diagnosis associated with the presentation includes atypical chest pain, VTE, GERD, acs Admission/Observation Consideration of admission/observation: Escalation of care including admission/observation considered CTA negative bedside ECHO negative trop flat x 2 with 24 hours of symptoms and no acute ischemia on EKG will refer to outpatient work up Lab Data MDM Lab Attestation statement: I reviewed the patient's lab results. 07/14/25 12:23 07/14/25 12:23 Labs: Lab Results 07/14/25 07/14/25 Range/Units 12:23 13:37 WBC 8.3 (4.8-10.8) X10*3/uL RBC 5.26 (4.60-5.80) X10*6/uL Hgb 14.5 (14.0-18.0) g/dl Hct 44.1 (42.0-52.0) % MCV 83.8 (80.0-98.0) fL MCH 27.6 (27.0-33.0) pg MCHC 32.9 (31.0-36.0) g/dl RDW 14.5 (11.0-16.0) % Plt Count 173 (160-400) X10*3/uL MPV 10.5 (9.4-12.4) fL Immature Gran % (Auto) 0.4 (0.0-0.4) % Neut % (Auto) 70.0 (45-73) % Lymph % (Auto) 16.6 L (20-40) % Rusk % (Auto) 11.5 H (2-11) % Eos % (Auto) 1.0 (0-4) % Baso % (Auto) 0.5 (0-2) % Lymph # (Auto) 1.4 (1.2-4.9) X10*3/uL [place] # (Auto) 1.0 (0.1-1.2) X10*3/uL Eos # (Auto) 0.1 (0.0-0.4) X10*3/uL Baso # (Auto) 0.0 (0.0-0.2) X10*3/uL Abs Immat Gran (auto) 0.03 (0.00-0.03) X10*3/uL Absolute Neuts (auto) 5.8 (2.0-8.3) x10*3/uL Absolute Nucleated RBC 0.000 (0.0-0.012) X10*3/uL Nucleated RBC % (auto) 0.0 (0.0-0.2) /100WBC D-Dimer High Sensitivty < 150 NG/ML Sodium 142 (135-145) mmol/L Potassium 4.1 (3.3-5.1) mmol/L Chloride 108 (96-108) mmol/L Carbon Dioxide 26 (22-29) mmol/L Anion Gap 12 (12-20) BUN 20 H (9-16) mg/dL Creatinine 1.00 (0.5-1.4) mg/dL Estim Creat Clear Calc 78.4 Estimated GFR > 60 Random Glucose 114 (60-115) mg/dL Calcium 9.5 (8.4-10.2) mg/dL Magnesium 2.1 (1.6-2.6) mg/dL Total Bilirubin 0.5 (0.0-1.0) mg/dL Direct Bilirubin 0.2 (0.0-0.5) mg/dL AST 22 (5-37) U/L ALT 26 (0-40) U/L Alkaline Phosphatase 63 (39-117) U/L Troponin I High Sens 7.8 8.0 (<3.5-35.0) ng/L NT-Pro-B Natriuret Pep 187.4 (<300) pg/mL Total Protein 7.4 (6.5-8.0) g/dL Albumin 4.6 (3.5-5.0) g/dL COVID-19 (PJ) Negative (Negative) COVID-19 Clin Com See Note Influenza Type A (BRYNN) Negative (Negative) Influenza Type B (BRYNN) Negative (Negative) Influenza A & B Note See Note Independent Interpretation I performed an independent interpretation of an: EKG, Plain X-Ray (normal ) and CT Scan (no VTE, no dissection) Interpretation: Rate: 107 Rhythm: sinus tach Wallace: normal Normal P waves. Normal ANNALEE. Normal QRS complex. ST T wave : no ELIU, inverted t wave aVL qTC: normal prior studies: no acute ischemia The study has been interpreted contemporaneously by me. EKG #2 Rate: 83 Rhythm: NSR Wallace: normal Normal P waves. Normal ANNALEE. Normal QRS complex. ST T wave : normal no ELIU, flat t wave aVL qTC: 430 prior studies: no acute ischemia The study has been interpreted contemporaneously by me. . Radiology Impression Discussion of test interpretation with radiology: I have reviewed the radiologist's reading. External Record Review External record reviewed: Outpatient record Discharge Plan Discharge Clinical Impression: Chest pain Qualifiers: Chest pain type: unspecified Qualified Code(s): R07.9 - Chest pain, unspecified Patient Disposition: Home, Self-Care Instructions: Chest Pain (ED) Additional Instructions: labs reassuring heart tests normal x 2 EKG no acute changes x 2 CT scan of chest no blood clot, no fluid around heart, normal aorta negative for covid and flu YOU NEED TO REST AND STAY HYDRATED, DO NOT EXERT YOURSELF UNTIL YOU SEE YOUR HOSE HANDLER RETURN AT ANY TIME FOR WORSENING SYMPTOMS OR CONCERNS. As we discussed your cardiac work up was reassuring in the Emergency Department. We feel it is safe for you to go home at this time but you are going to need to follow up with your primary care doctor or exceptional children's teacher. You will need further work up such as ECHO, cardiac stress testing, coronary CT angiogram to assess your cardiac risk. Prescriptions: No Action amlodipine-benazepril 10-20 mg capsule 1 cap PO DAILY Qty: 90 3RF rosuvastatin 20 mg tablet 20 mg PO DAILY Qty: 90 3RF metformin 500 mg tablet 500 mg PO DAILY Qty: 90 2RF (DME) blood pressure monitor Kit See Rx Instructions .MEDSUPPLY Qty: 1 0RF Rx Instructions: As directed gabapentin 100 mg capsule 100 mg PO BEDTIME Qty: 30 2RF fluticasone propionate [Flonase Allergy Relief] 50 mcg/actuation spray,suspension 1 spray intranasal BID Qty: 16 0RF Rx Instructions: administer into each nostril sildenafil 100 mg tablet 100 mg PO cholecalciferol (vitamin D3) 125 mcg (5,000 unit) capsule 125 mcg PO QAM Qty: 90 6RF Referrals: [facility] [Provider Group] Referral Note: call to schedule as soon as possible Print Language: Arabic
[2025-07-14 12:00] VITALS: BP 118/66; PULSE 101; RESP 18; O2SAT 96
[2025-07-14 12:31] LABS: MANUAL DIFF FLAG NO
[2025-07-14 12:34] LABS: Hematocrit 44.1 % (42.0-52.0); Hemoglobin 14.5 g/dl (14.0-18.0); Imm Gran Abs Auto 0.03 X10*3/uL (0.00-0.03); Imm Gran Pct Auto 0.4 % (0.0-0.4); Lymphocytes Absolute Auto 1.4 X10*3/uL (1.2-4.9); Mean Corpuscular HGB Conc 32.9 g/dl (31.0-36.0); Mean Corpuscular Hemoglobin 27.6 pg (27.0-33.0); Mean Corpuscular Volume 83.8 fL (80.0-98.0); NRBC Abs Auto 0.000 X10*3/uL (0.0-0.012); NRBC Pct Auto 0.0 /100WBC (0.0-0.2); Platelet Count 173 X10*3/uL (160-400); Red Blood Count 5.26 X10*6/uL (4.60-5.80); White Blood Count 8.3 X10*3/uL (4.8-10.8)
[2025-07-14 12:46] LABS: D Dimer High Sensitivity < 150 NG/ML
[2025-07-14 12:47] LABS: COVID-19 Test Negative (Negative); IDNOW Serial# 08D9AD1C
[2025-07-14 12:48] LABS: Alanine Aminotransferase 26 U/L (0-40); Albumin Level 4.6 g/dL (3.5-5.0); Alkaline Phosphatase 63 U/L (39-117); Anion Gap 12 (12-20); Aspartate Amino Transferase 22 U/L (5-37); Blood Urea Nitrogen 20 mg/dL (9-16); Calcium 9.5 mg/dL (8.4-10.2); Carbon Dioxide 26 mmol/L (22-29); Chloride 108 mmol/L (96-108); Creatinine Clr Calc Pharmacy 78.4; Estimated Glomerular Filt Rate > 60; IDNOW Serial# 58CA691E; Influenza B2 Negative (Negative); Magnesium 2.1 mg/dL (1.6-2.6); Potassium 4.1 mmol/L (3.3-5.1); Sodium 142 mmol/L (135-145); Total Protein 7.4 g/dL (6.5-8.0)
[2025-07-14 12:54] LABS: NT Pro B Type Natriuretic Pept 187.4 pg/mL (<300); Troponin-I High Sensitivity 7.8 ng/L (<3.5-35.0)
[2025-07-14 13:03] VITALS: BP 121/88; PULSE 89; RESP 16; O2SAT 100
[2025-07-14 14:00] VITALS: BP 130/70; PULSE 90; RESP 16; O2SAT 96
[2025-07-14 14:07] LABS: Troponin-I High Sensitivity 8.0 ng/L (<3.5-35.0)
[2025-07-14] MEDS: iohexoL 350 MG/ML 100 ML INFUS..BTL IV (14:53)
--- NOTE | 2025-07-14 15:28 | ECG_ITS ---
Test Reason : CP Blood Pressure : */* mmHG Vent. Rate : 83 BPM Atrial Rate : 83 BPM P-R Int : 184 ms QRS Dur : 90 ms QT Int : 366 ms P-R-T Axes : 62 19 57 degrees QTcB Int : 430 ms Normal sinus rhythm Septal infarct (cited on or before 14-Jul-2025) Abnormal ECG When compared with ECG of 14-Jul-2025 11:36, Questionable change in initial forces of Anterior leads Referred By: Jessica Mendez Electronically Signed By: SAVITA MALONEY MD
[2025-07-14 16:02] VITALS: BP 130/70; PULSE 90; RESP 16; TEMP 36.6; O2SAT 96
== END 2025-07-14 16:03 | disposition home or self-care (01) ==
PROVIDERS: Physician Assistant Medical; Emergency Provider Emergency Medicine
DX: R07.9 Chest pain, unspecified (principal); E11.9 Type 2 diabetes mellitus without complications; E78.5 Hyperlipidemia, unspecified; G47.33 Obstructive sleep apnea (adult) (pediatric); I25.10 Atherosclerotic heart disease of native coronary artery without angina pectoris; I10 Essential (primary) hypertension; Z79.84 Long term (current) use of oral hypoglycemic drugs; Z87.891 Personal history of nicotine dependence
CPT/HCPCS: 36415; 71045; 71275; 80048; 80076; 83735; 83880; 84484; 85025; 85379; 87502; 87635; 93005; 99285; Q9967

== ENCOUNTER → 2025-07-14 11:32 | Outpatient (BNV) | payer OTHER, SELFPAY | PROVIDERS: Emergency Provider Emergency Medicine; Visit Provider Internal Medicine Cardiovascular Disease | DX: I25.2 Old myocardial infarction (principal) | CPT/HCPCS: 93010 ==

== ENCOUNTER → 2025-07-14 12:06 | Outpatient (BNV) | payer OTHER, SELFPAY | PROVIDERS: Emergency Provider Emergency Medicine; Visit Provider Radiology Diagnostic Radiology | DX: J43.9 Emphysema, unspecified (principal); R07.9 Chest pain, unspecified | CPT/HCPCS: 71045; 71275 ==

== ENCOUNTER 2025-07-26 08:53 | Outpatient (AMB) | payer OTHER, SELFPAY ==
--- NOTE | 2025-07-26 09:05 | MHC.PC.OV ---
Vital Signs 07/26/25 09:06 Height 5 ft 11 in Weight 188 lb 6 oz BMI 26.3 BP 110/60 Blood Pressure Location Lt brachial Position Sitting Respiration 18 Pulse 79 Pulse Source Pulse Oximeter Temp 97.3 F Temp Source Temporal Artery Scan Pulse Oximetry (%) 97 Oxygen Delivery Method Room Air Intake Visit Reasons: dm/htn/hld/leg cramps, sleep apnea Intake Note: Patient is here to follow up on DM, HTN, HLD, Leg cramp, VIVI. Vice President Of Engineering Required: No Hot Roll Inspector: Not Required per policy Accompanied by: Self / Same As Patient Allergies No Known Allergies (No Known Allergies*) Allergy (Verified 07/26/25 09:20) Medication List - Last Reconciled 07/26/25 by JAROCHO Espinoza amlodipine-benazepril 10-20 mg 1 cap PO DAILY blood pressure monitor As directed cholecalciferol (vitamin D3) 125 mcg PO QAM fluticasone propionate 50 mcg/actuation (Flonase Allergy Relief) 1 spray intranasal BID gabapentin 100 mg PO BEDTIME metformin 500 mg PO DAILY rosuvastatin 20 mg PO DAILY sildenafil 100 mg PO Tobacco use date assessed: 07/26/25 Fall risk assessment: No Falls in past year Last assessed Fall Risk: 07/26/25 Dental Screening Dental Screen Date: 04/25/25 HPI dm/htn/hld/leg cramps, sleep apnea HPI Details he wants the continue glucose monitoring [facility] Medical History Obstructive sleep apnea hypopnea, severe Other and unspecified hyperlipidemia Essential hypertension Type 2 diabetes mellitus with unspecified complications 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 Surgical History History of dental surgery Family History Father Hypertension Mother Hypertension Diabetes Social History Housing: Apartment Alcohol intake: never Patient Tobacco Use Status: Former Tobacco user Tobacco use type: Cigarette e-Cigarette/Vaping Use: Never Used Second Hand Smoke Exposure: Yes service: No Current occupational status: employed Cognitive needs: No Hearing needs: No Vision needs: Yes (glasses) Questionnaire Thrive Questionnaire Date Thrive assessed: 04/25/25 JESUS-7 AMB Questionnaire JESUS-7 Date JESUS - 7 assessed: 04/25/25 Source: Developed by Drs. Carlos Enrique Medina, Chasity Lepe, Mohan Mann and colleagues, with an educational tcuker from [employer]. Physical exam (Primary Care) Vital Signs: Last Vital Signs Temp 97.3 F 07/26/25 09:06 Pulse 79 07/26/25 09:06 BP 110/60 07/26/25 09:06 Pulse Ox 97 07/26/25 09:06 Oxygen Delivery Method Room Air 07/26/25 09:06 BMI result Body Mass Index 26.3 Tobacco/Smoking Status: Tobacco use Status Tobacco use date assessed 07/26/25 07/26/25 09:13 Patient Tobacco Use Status Former Tobacco user 07/26/25 09:13 Tobacco use type Cigarette 07/26/25 09:13 e-Cigarette/Vaping Use Never Used 07/26/25 09:13 Thrive Assessment: Date of Thrive Assessment Date Thrive assessed 04/25/25 07/26/25 09:13 Results AMB Hemoglobin A1c AMB Hemoglobin A1c 6.4 % Last Edit by STEVE Biggs on 07/26/25 09:17 Coding Assessment & Plan Assessment & Plan Orders: Orders Complete Blood Count Auto Diff 3 Months E11.8 - Type 2 diabetes mellitus with unspecified complications, E78.5 - Hyperlipidemia, unspecified, G47.33 - Obstructive sleep apnea (adult) (pediatric), I10 - Essential (primary) hypertension, I25.10 - Atherosclerotic heart disease of [place] coronary artery without angina pectoris, R26.9 - Unspecified abnormalities of gait and mobility Lipid Panel 3 Months E11.8 - Type 2 diabetes mellitus with unspecified complications, E78.5 - Hyperlipidemia, unspecified, G47.33 - Obstructive sleep apnea (adult) (pediatric), I10 - Essential (primary) hypertension, I25.10 - Atherosclerotic heart disease of [place] coronary artery without angina pectoris, R26.9 - Unspecified abnormalities of gait and mobility Comprehensive [place]. Panel Fast 3 Months E11.8 - Type 2 diabetes mellitus with unspecified complications, E78.5 - Hyperlipidemia, unspecified, G47.33 - Obstructive sleep apnea (adult) (pediatric), I10 - Essential (primary) hypertension, I25.10 - Atherosclerotic heart disease of [place] coronary artery without angina pectoris, R26.9 - Unspecified abnormalities of gait and mobility UA CC w/rflx Micro + Cult 3 Months E11.8 - Type 2 diabetes mellitus with unspecified complications, E78.5 - Hyperlipidemia, unspecified, G47.33 - Obstructive sleep apnea (adult) (pediatric), I10 - Essential (primary) hypertension, I25.10 - Atherosclerotic heart disease of [place] coronary artery without angina pectoris, R26.9 - Unspecified abnormalities of gait and mobility TSH reflex Free T4 3 Months E11.8 - Type 2 diabetes mellitus with unspecified complications, E78.5 - Hyperlipidemia, unspecified, G47.33 - Obstructive sleep apnea (adult) (pediatric), I10 - Essential (primary) hypertension, I25.10 - Atherosclerotic heart disease of [place] coronary artery without angina pectoris, R26.9 - Unspecified abnormalities of gait and mobility Vitamin D 25-OH Total 3 Months E11.8 - Type 2 diabetes mellitus with unspecified complications, E78.5 - Hyperlipidemia, unspecified, G47.33 - Obstructive sleep apnea (adult) (pediatric), I10 - Essential (primary) hypertension, I25.10 - Atherosclerotic heart disease of [place] coronary artery without angina pectoris, R26.9 - Unspecified abnormalities of gait and mobility Hemoglobin A1c 3 Months E11.8 - Type 2 diabetes mellitus with unspecified complications, E78.5 - Hyperlipidemia, unspecified, G47.33 - Obstructive sleep apnea (adult) (pediatric), I10 - Essential (primary) hypertension, I25.10 - Atherosclerotic heart disease of [place] coronary artery without angina pectoris, R26.9 - Unspecified abnormalities of gait and mobility AMB Hemoglobin A1c Today E11.8 - Type 2 diabetes mellitus with unspecified complications, E11.9 - Type 2 diabetes mellitus without complications, I10 - Essential (primary) hypertension Medications: New omeprazole 20 mg PO DAILY 90 caps 3RF
[2025-07-26 09:06] VITALS: BP 110/60; PULSE 79; RESP 18; TEMP 36.3; O2SAT 97; BMI 26.3
--- OUTSIDE RECORDS SUMMARY | 2025-07-26 09:29 | XMS_ITS | Clinical Summary ---
Author Organization [facility] Address [address] [place] [address] Phone Care Team Providers Care Director Of Income Tax Name Role Phone Isabelle Turk MD Primary Care Provider [phone] Medical History Medical History Date Comments Essential hypertension DX:Essent ial hypertension Hyperlipidemia DX:Hyperlipidemi a Diabetes mellitus type 2, co ntrolled, with complications (CMS/HCC V24, CMS/HCC V28) DX:Diabetes mellitus type 2, controlled, with complications ([facility]) Social History Tobacco Use Types Packs/Day [...] age to complete this topic Insurance [facility] Care Teams Director Of Income Tax Relationship Specialty Start Date End Date Isabelle Turk MD [address] [place] [address] [place] [id number] PCP - General 03/03/24
== END 2025-07-26 09:47 | disposition home or self-care (01) ==
LOC: HO.HMCH 08:53
DX: E11.8 Type 2 diabetes mellitus with unspecified complications (principal); E11.9 Type 2 diabetes mellitus without complications; I10 Essential (primary) hypertension

== ENCOUNTER → 2025-07-26 08:53 | Outpatient (BNVA) | payer OTHER, SELFPAY | DX: I25.10 Atherosclerotic heart disease of native coronary artery without angina pectoris (principal); K21.9 Gastro-esophageal reflux disease without esophagitis; R07.89 Other chest pain; I10 Essential (primary) hypertension; Q24.5 Malformation of coronary vessels; E78.5 Hyperlipidemia, unspecified; E11.8 Type 2 diabetes mellitus with unspecified complications; R26.9 Unspecified abnormalities of gait and mobility; R29.818 Other symptoms and signs involving the nervous system; G47.30 Sleep apnea, unspecified; R20.2 Paresthesia of skin; M79.601 Pain in right arm; M79.602 Pain in left arm | CPT/HCPCS: 83036; 99212 ==

== ENCOUNTER 2025-07-26 13:26 | Outpatient (AMB) | payer OTHER, SELFPAY ==
[2025-07-26 13:30] VITALS: BP 128/62; PULSE 84; BMI 26.3
--- NOTE | 2025-07-26 13:30 | A.OFFVIS_ITS ---
Vital Signs 07/26/25 13:30 Height 5 ft 11 in Weight 188 lb 4.396 oz BMI 26.3 BP 128/62 Blood Pressure Location Lt brachial Position Sitting Pulse 84 Pulse Source Pulse Oximeter Intake Visit Reasons: hmd/dc Section Repairer Required: No Allergies No Known Allergies (No Known Allergies*) Allergy (Verified 07/26/25 13:32) Medication List - Last Reconciled 07/26/25 by Bernadette Luis NP-C amlodipine-benazepril 10-20 mg 1 cap PO DAILY blood pressure monitor As directed cholecalciferol (vitamin D3) 125 mcg PO QAM fluticasone propionate 50 mcg/actuation (Flonase Allergy Relief) 1 spray intranasal BID gabapentin 100 mg PO BEDTIME metformin 500 mg PO DAILY omeprazole 20 mg PO DAILY rosuvastatin 20 mg PO DAILY sildenafil 100 mg PO HPI HPI hmd/dc: Details: Carlos Enrique is a 64-year-old male with past medical history of hypertension, hyperlipidemia, diabetes, anomalous coronary artery, CAD who was recently seen in the ER for chest discomfort. He ruled out for ACS and PE. He has seen his PCP in follow-up and was started on medication for GERD. He now presents here for follow-up. Today he reports he went to urgent care then the ER for mid chest discomfort that started 1 day and was persistent into the following day. He had taken medication for heartburn and states it did not help. His ER evaluation did not show any acute findings. He says his symptom gradually went away. He has not had symptom that significant since that time. He does notice some mild heartburn with an discomfort in the back of his throat occurring randomly. He says this is not brought on by physical activity. He has not started the new medication for GERD yet. No shortness of breath, PND, orthopnea or edema. No lightheadedness, palpitations, presyncope, syncope. 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 He reports compliance with his medications. [facility] Medical History Obstructive sleep apnea hypopnea, severe Other and unspecified hyperlipidemia Essential hypertension Type 2 diabetes mellitus with unspecified complications 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 Surgical History History of dental surgery Family History Father Hypertension Mother Hypertension Diabetes Social History Housing: Apartment Alcohol intake: never Patient Tobacco Use Status: Former Tobacco user Tobacco use type: Cigarette e-Cigarette/Vaping Use: Never Used Second Hand Smoke Exposure: Yes service: No Current occupational status: employed Cognitive needs: No Hearing needs: No Vision needs: Yes (glasses) Review of Systems Const All systems reviewed & are unremarkable except as noted in HPI and below ENT Denies dizziness Card Details: heart burn Denies chest pain, Denies chest pain at rest, Denies chest pain with activity, Denies rapid heart rate, Denies pedal edema, Denies edema, Denies leg edema, Denies lightheadedness, Denies palpitations, Denies dyspnea, Denies dyspnea on exertion and Denies orthopnea Resp Denies cough, Denies dyspnea and Denies dyspnea on exertion GI Denies hematochezia and Denies change in stool character Musc Denies abnormal gait, Denies limited range of motion, Denies muscle cramps, Denies muscle weakness, Denies numbness, Denies radiating pain into limb, Denies stiffness and Denies tingling Neuro Denies abnormal gait, Denies dizziness, Denies numbness and Denies tingling Endo Denies palpitations Physical Exam Vital Signs: Last Vital Signs Pulse 84 07/26/25 13:30 BP 128/62 07/26/25 13:30 BMI result Body Mass Index 26.3 Const General: cooperative, healthy appearing, comfortable and no acute distress Orientation/consciousness: patient oriented x3 Neck Neck: Yes normal visual inspection Resp Effort & Inspection: normal respiratory effort Auscultation: clear to auscultation bilaterally, no crackles, no rales, no rhonchi and no wheezes Cardio Rate: regular rate Rhythm: regular rhythm Heart sounds: S1 normal heart sound present, S2 normal heart sound present, no gallops, no murmurs and no rubs Neuro General: patient oriented x3 Extrem General: Yes normal to inspection, No no pedal edema and No calf tenderness Psych Appearance: grossly normal Mental Status: mental status grossly normal Speech and movement: Normal speech and movement present Results AMB Hemoglobin A1c AMB Hemoglobin A1c 6.4 % Last Edit by STEVE Biggs on 07/26/25 09:17 Assessment & Plan Assessment & Plan (1) Chest discomfort: Code(s): R07.89 - Other chest pain Category: Medical Plan: Recent atypical chest discomfort with ER evaluation, ruling out for ACS and PE. Mild symptoms randomly since that time and he will be starting new medication to help with possible GERD. He does have a history of known anomalous left circumflex artery with no high-grade stenosis and 50% narrowing after the takeoff of the acute marginal branch, from CTA 2019. The CTA of his chest done 07/14/2025 shows mild coronary calcifications. His description of symptoms sounds more like GI related. Recommend he start medication as prescribed by PCP for GERD. For completeness will check an exercise stress test to evaluate for any ischemia. Signs and symptoms of angina reviewed. Continue with risk factor modification. 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 No high-grade stenosis in the proximal or mid circumflex, but distal portion was small and hence not seen well. Otherwise, there was 50% narrowing after the takeoff of the acute marginal branch. No significant stenosis elsewhere. Last Echocardiogram from 2019 with normal LVEF, 55-60%, normal diastolic filling, no significant valvular pathology and normal pulmonary pressures. He has cardiac risk factors of hypertension, hyperlipidemia and diabetes. He needs ongoing cardiac risk factor modification. Continue amlodipine and benazepril for good blood pressure control. Continue rosuvastatin with ideal LDL goal less than 70. Cardiology follow-up in 6 months sooner if needed. (3) Atherosclerotic cardiovascular disease: Code(s): I25.10 - Atherosclerotic heart disease of [place] coronary artery without angina pectoris Category: Medical Plan: As above (4) Essential hypertension: Code(s): I10 - Essential (primary) hypertension Category: Medical Plan: Blood pressure goal less than 130/80. Well controlled at present. No med changes made. (5) Other and unspecified hyperlipidemia: Code(s): E78.5 - Hyperlipidemia, unspecified Category: Medical Plan: [place] LDL goal < 70 in pt with CAD and DM. Followed by PCP. Continue rosuvastatin. (6) Type 2 diabetes mellitus with unspecified complications: Code(s): E11.8 - Type 2 diabetes mellitus with unspecified complications Category: Medical Plan: As above Plan I discussed with the patient the likelihood of his symptoms being related to gastroesophageal reflux disease rather than cardiac issues. We agreed on conducting a treadmill stress test as a precaution to rule out cardiac causes of his chest pain and shortness of breath. I advised him to monitor his symptoms and report any changes, especially if they become more frequent or severe. Orders: Orders CA stress test Today I25.10 - Atherosclerotic heart disease of [place] coronary artery without angina pectoris, R07.89 - Other chest pain Patient Instructions: - Continue taking heartburn medication as prescribed. - Monitor symptoms and note any patterns related to physical activity or medication intake. - Report any worsening of symptoms or if they become consistently associated with physical activity. - Attend scheduled treadmill stress test appointment. Patient was informed and verbally consented to the use of an ambient scribe for clinic note documentation during this visit. Visit time spent on chart review, interview, assessment, orders, documentation. Coding Level of Care Code Est Pt Level 4 (64968) Complex EM visit Add On G2211 Diagnoses Chest discomfort R07.89 Anomalous origin of coronary artery Q24.5 Atherosclerotic cardiovascular disease I25.10 Essential hypertension I10 Other and unspecified hyperlipidemia E78.5 Type 2 diabetes mellitus with unspecified complications E11.8 Time Spent (min) 30
== END 2025-07-26 13:58 | disposition home or self-care (01) ==
LOC: HO.HCS 13:27
PROVIDERS: Visit Provider Nurse Practitioner Family
DX: R07.89 Other chest pain (principal); Q24.5 Malformation of coronary vessels; I25.10 Atherosclerotic heart disease of native coronary artery without angina pectoris; I10 Essential (primary) hypertension; E78.5 Hyperlipidemia, unspecified; E11.8 Type 2 diabetes mellitus with unspecified complications
CPT/HCPCS: 99214